=== PATIENT | male | born 1970 | race Caucasian/White ===

== ENCOUNTER → 2018-08-28 07:09 | Outpatient (CLI) | payer OTHER, SELFPAY ==
--- NOTE | 2018-08-28 | DI.MRI.S_ITS ---
PROCEDURE: MR LUMBAR SPINE WO CON INDICATIONS: LEFT LEG RADICULOPATHY TECHNIQUE: Noncontrast sagittal T1 spin echo and T2 fast echo, sagittal STIR, axial T1 and T2 fast spin echo through the lumbar spine. In cases with scoliosis, additional coronal T2 fast spin echo may be performed. COMPARISON: [facility], CT, ABDOMEN/PELVIS WITH CONTRAST, 08/22/2016, 12:25. FINDINGS: Image quality: Diagnostic, with note made of motion artifact. Alignment and Curvature: There is normal bony alignment. Bone Marrow: Marrow is of normal overall signal. No acute vertebral body compression fractures. Spinal Cord: Conus medullaris terminates at the L1 level. Visualized cord demonstrates normal signal and size. Paraspinous Soft Tissues: No paravertebral masses. T12-L1: Normal appearance. L1-L2: Normal appearance. L2-L3: Normal appearance. L3-L4: Normal appearance. L4-L5: Mild loss of disc height is seen. Loss of disc signal is seen. Moderate disc bulge is seen, with a central disc extrusion. There is mild superior migration of the disc material seen. There is an associated annular tear present. There is moderate central canal narrowing seen, with mass effect upon the regional nerve roots, including the transiting L5 nerve roots on both sides, left worse than right. Minimal to mild facet hypertrophy is seen. There is mild right-sided and moderate left-sided neural foraminal narrowing seen. L5-S1: The disc height is well-preserved. Loss of disc signal is seen at this level. Mild to moderate disc bulge is seen, with a mild central disc protrusion. An annular fissure is present posteriorly, as on series 2 image 10. Mild facet joint hypertrophy is seen. At least moderate bilateral neural foraminal narrowing is seen. There is a degree of impingement seen upon the exiting nerve roots. Mild central canal narrowing is seen. IMPRESSION: Focal lower lumbar spine degenerative changes are seen, including a central disc extrusion at the L4-L5 level. Annular fissures are seen at L4-L5 and L5-S1. Dictated by: Pelon Lira M.D. on 08/28/2018 at 8:58 Approved by: Pelon Lira M.D. on 08/28/2018 at 9:03
== END ==
PROVIDERS: Visit Provider Family Medicine
DX: M51.16 Intervertebral disc disorders with radiculopathy, lumbar region (principal); M51.17 Intervertebral disc disorders with radiculopathy, lumbosacral region; M48.061 Spinal stenosis, lumbar region without neurogenic claudication; M48.07 Spinal stenosis, lumbosacral region
CPT/HCPCS: 72148

== ENCOUNTER 2019-01-28 09:31 | Emergency (ER) | payer OTHER, SELFPAY ==
[2019-01-28 09:31] VITALS: BP 127/88; PULSE 90; RESP 14; TEMP 36.7; O2SAT 98
--- NOTE | 2019-01-28 10:06 | ED.ABDPAIN ---
HPI - Abdominal Pain General Chief Complaint: Abdominal Pain Stated Complaint: ABD PAIN Time Seen by Provider: 01/28/19 09:48 Source: patient Mode of arrival: ambulatory Limitations: no limitations History of Present Illness HPI narrative: Patient is a 48-year-old male who presents with left lower quadrant pain. It started yesterday afternoon it feels like previous episodes of diverticulitis. His hurts every time he moves. Decreased appetite no nausea vomiting. No bloody stools. MD complaint: abdominal pain Onset (ago): day(s) (1) Pain Consistency: constant Location: LLQ Severity: moderate Quality: stabbing Radiation: none Migration to: no migration Exacerbating factors: movement Related Data Home Medications Medication Instructions Recorded Confirmed pantoprazole 40 mg PO QDAY #30 tab 08/22/16 01/28/19 Previous Rx's Medication Instructions Recorded hydrocodone-acetaminophen 1 tab PO Q6H PRN #10 tab 01/28/19 levofloxacin 750 mg PO DAILY #10 tab 01/28/19 metronidazole 500 mg PO TID #30 tab 01/28/19 Allergies Allergy/AdvReac Type Severity Reaction Status Date / Time No Known Drug Allergies Allergy Verified 01/28/19 09:40 Review of Systems Review of Systems GENERAL: Denies chills, fatigue, malaise, fever, sweats, travel HEENT: Denies sinus pain, ear pain, sore throat, difficulty swallowing, neck pain RESPIRATORY: Denies dyspnea, cough, wheezing, hemoptysis, sputum. CARDIOVASCULAR: Denies chest pain, palpitations, orthopnea, edema GASTROINTESTINAL: See HPI : Denies dysuria, frequency, incontinence, hematuria, urinary retention, flank pain. MUSCULOSKELETAL: Denies weakness, joint pain, or bony pain SKIN: No rash, no erythema, no pruritus NEUROLOGIC: Denies weakness, dizziness, headache, numbness, change in speech, confusion PSYCHIATRIC: No concerning psychosocial issues. 12 point review of systems is negative except for those stated above and HPI PFSH Medical History Diverticulitis (Acute) GERD (gastroesophageal reflux disease) (Acute) Surgical History Status post appendectomy (Acute) Social History Smoking Status: Never smoker Social History Smoking Status: Never smoker Exam Initial Vital Signs Initial Vital Signs: Vital Signs Temperature 98.1 F 01/28/19 09:31 Pulse Rate 90 01/28/19 09:31 Respiratory Rate 14 01/28/19 09:31 Blood Pressure 127/88 01/28/19 09:31 Pulse Oximetry 98 01/28/19 09:31 GENERAL: Well-appearing, well-nourished and in no acute distress. HEENT: Head atraumatic,EOMI, pupils reactive, CARDIOVASCULAR: Regular rate and rhythm without murmurs, rubs or gallops. RESPIRATORY: Breath sounds equal bilaterally, no wheezes rales or rhonchi. ABDOMEN: Soft, the guarding, left lower quadrant pain EXTREMITIES: Normal range of motion, no clubbing or edema. Neurovascularly intact NEUROLOGICAL: Alert and oriented x4.Normal gait and speech. SKIN: Warm, dry, no laceration, no petechiae, no rashes or lesions. Course Orders Ordered: ED Orders 01/28/19 10:10 CT abdomen pelvis w con Stat Discontinued Medications Sodium Chloride (Normal Saline 0.9%) 1,000 mls @ 1,000 mls/hr IV CONT TRACEE Last Infusion: 01/28/19 12:03 Dose: 0 mls/hr Admin: 01/28/19 10:24 Dose: 1,000 mls/hr Morphine Sulfate (Morphine) 4 mg IV NOW ONE Stop: 01/28/19 10:34 Last Admin: 01/28/19 10:34 Dose: 4 mg Ondansetron HCl (Zofran) 4 mg IV NOW ONE Stop: 01/28/19 10:34 Last Admin: 01/28/19 10:35 Dose: 4 mg Consultations Consultation #1: Dr. sanchez in regards to ileus and diverticulitis. Patient tolerating oral fluids may be safely discharged home. Time: 11:19 Vital Signs - 8 hr 01/28/19 11:55 Pulse Rate 72 Respiratory Rate 18 Blood Pressure [Right Arm] 118/72 Pulse Oximetry 98 MDM - Abdominal Pain Lab Data Attestation: I reviewed the patient's lab results. Result diagrams: 01/28/19 Unknown 01/28/19 Unknown Lab Results 01/28/19 01/28/19 Range/Units Unknown Unknown WBC 13.9 H (4.5-11.0) X10^3/uL RBC 5.14 (4.5-5.9) X10^6/uL Hgb 15.7 (13.5-17.5) g/dL Hct 45.2 (41-53) % MCV 87.9 (80-100) fL MCH 30.6 (26-34) PG MCHC 34.8 (30-36) % RDW 13.3 (11.6-14.8) % Plt Count 282 (150-400) X10^3/uL Neut % (Auto) 82.9 H (50-75) % Lymph % (Auto) 6.9 L (25-40) % [place] % (Auto) 9.3 (3-14) % Eos % (Auto) 0.6 L (2-4) % Baso % (Auto) 0.3 (0-2) % Neut # (Auto) 28600 H (6483-3490) /uL Lymph # (Auto) 1000 L (4045-4860) /uL [place] # (Auto) 1300 H (0-900) /uL Eos # (Auto) 100 (0-450) /uL Baso # (Auto) 0 (0-100) /uL Sodium 138 (137-145) mmol/L Potassium 3.9 (3.4-5.1) mmol/L Chloride 103 (98-107) mmol/L Carbon Dioxide 23 (22-32) mmol/L BUN 13 (9-20) mg/dL Creatinine 0.90 (0.66-1.25) mg/dL Estimated GFR > 60.0 (>60) mL/min BUN/Creatinine Ratio 14.4 (6-22) Glucose 132 H (70-100) mg/dL Calcium 9.3 (8.4-10.2) mg/dL Total Bilirubin 0.9 (0.2-1.3) mg/dL AST 23 (17-59) IU/L ALT 28 (21-72) IU/L Alkaline Phosphatase 83 (38-126) U/L Total Protein 8.1 (6.3-8.2) g/dL Albumin 4.6 (3.5-5.0) g/dL Globulin 3.5 (1.7-4.1) g/dL Albumin/Globulin Ratio 1.3 (1.0-2.8) Lipase 26 (23-300) U/L Point of care testing: Urine Dip Bedside Urine Glucose Negative Bedside Urine Bilirubin - Negative Bedside Urine Ketone - Negative Urine Specific [place] 1.005 Bedside Urine Occult Blood - Negative Bedside Urine pH 6.0 Bedside Urine Protein +/- 15 Bedside Urine Urobilinogen +/- 1mg Bedside Urine Nitrite - Negative Bedside Urine Leukocytes - Negative Esterase Imaging Data CT scan - abdomen: Radiologist's impression: PROCEDURE: CT ABDOMEN PELVIS W CON INDICATIONS: Left lower quadrant abdominal pain TECHNIQUE: After the administration of intravenous contrast, 5 mm thick sections acquired from the diaphragm to the symphysis. 5 mm coronal and sagittal reformats were acquired. For radiation dose reduction, the following was used: automated exposure control, adjustment of mA and/or kV according to patient size. COMPARISON: [facility], CT, ABDOMEN/PELVIS WITH CONTRAST, 08/22/2016, 12:25. FINDINGS: Image quality: Excellent. ABDOMEN: Lung bases: Lung bases are clear. Heart size is normal. Solid organs: Liver is normal in size and enhancement. Gallbladder appears normal. Biliary system is non dilated. Pancreas enhances normally. Spleen is normal in size and enhancement. No adrenal nodules. Kidneys demonstrate normal size and enhancement, without hydronephrosis. Peritoneum and bowel: Small bowel loops demonstrate normal wall thickness and caliber superiorly of the middle and lower thirds of the abdomen/pelvis there is prominence of small bowel fluid content, and just above the sigmoid colon there is small bowel mural thickening focally over a short segment of the small bowel at the midline, centered on series 2 image 63.. No free fluid or air. Nodes and vessels: No retroperitoneal or mesenteric adenopathy by size criteria. Aorta and inferior vena cava are normal in size. Miscellaneous: No ventral hernias. PELVIS: Genitourinary: Bladder wall thickness is normal. Miscellaneous: No inguinal hernias or adenopathy. At the sigmoid colon extensive diverticulosis is present, and as was previously the case during CT scanning 08/22/16 there is acute diverticulitis superimposed. This is most prominent at the middle third of the pelvis, across which a portion of the small bowel that is abnormally fluid-filled crosses, and exactly in this area at the midline is an abnormal mural thickening over a short segment of small bowel. No pneumatosis is associated, and this likely is reactive in origin. A peridiverticular abscess is not seen. Bones: No suspicious bony lesions. No vertebral body compression fractures. IMPRESSION: 1. Acute moderately severe diverticulitis involving the sigmoid colon in an area of relatively prominent sigmoid diverticulosis. No peridiverticular abscess is present and is active acute inflammatory process is in the same area as prior acute diverticulitis was present during prior CT scanning in August of 2016. 2. There is reactive ileus involving small bowel loops over the pelvis and lower two thirds of the abdomen, including a short segment of small bowel that crosses immediately over the area of maximal diverticulitis with small bowel mural thickening as a result. Reactive ileus and reactive inflammation appear present as cause of these findings. No free air seen. Dictated by: Lawson Morrow M.D. on 01/28/2019 at 9:49 MDM Narrative Medical decision making narrative: Patient is tolerating oral fluids. He did require some morphine to help control his pain. He overall does not appear septic. Ileus is likely reactive from inflammation from diverticulitis. I suspect that treating diverticulitis will help with the ileus. I recommended clear liquid diet patient. At this time discussed warning signs with both patient and . Discharge Plan Departure Patient Disposition: Home Clinical Impression: Ileus Diverticulitis Qualifiers: Diverticulitis site: large intestine Diverticulitis bleeding: without bleeding Diverticulitis complication: unspecified complication status Qualified Code(s): K57.32 - Diverticulitis of large intestine without perforation or abscess without bleeding Discharge Date/Time: 01/28/19 12:04 Interventions: ED Discharge Assessment Last Done: 01/28/19 12:03 Instructions: Diverticulitis, Ileus Activity Restrictions/Additional Instructions: *You have been diagnosed with diverticulitis with ileus *What to do: Recommend clear liquid diet if tolerated may advance. May require GI consultation if having recurrent diverticulitis, please speak with your PCP about *Continue to take medications as directed --> SENT TO [facility] Levaquin 750 mg once a day Flagyl 500 mg 3 times a day [place] 1 tablet every 4 hr or 2 tablets every 6 hr if needed for severe pain *Follow up with your primary care provider in 2-3 days *Return to ER if you should have increasing abdominal pain not tolerating diet or any new, worsening or concerning symptoms CONTROLLED SUBSTANCE DISCHARGE (Narcotoic/benzodiazepine/Flexeril/Phenergan) 1. You have been prescribed narcotic medications, it does have acetaminophen/Tylenol/paracetamol in it so do not take extra Tylenol or Tylenol containing products 2. Please understand that we cannot provide further refills of narcotics, benzodiazepines or controlled substances through the ED and her pain management will need to be through your provider. 3. While on these medications you cannot drive or operate heavy machinery. 4. You cannot sign legal documents or perform any duties such as this. 5. As long as you're taking opiate pain medications he should also be taking a stool softener such as Colace, Dulcolax, MiraLAX or prune juice, to help avoid constipation. Prescriptions: New hydrocodone-acetaminophen 5-325 mg tablet 1 tab PO Q6H PRN (Reason: pain) Qty: 10 RF: 0 metronidazole 500 mg tablet 500 mg PO TID Qty: 30 RF: 0 levofloxacin 750 mg tablet 750 mg PO DAILY Qty: 10 RF: 0 No Action pantoprazole 40 MG tablet,delayed release (DR/EC) 40 mg PO QDAY Qty: 30 RF: 0 Referrals: Christiano Hardin MD [Primary Care Provider] - Stand Alone Forms: Work Release Note
--- NOTE | 2019-01-28 10:10 | DI.CT.S_ITS ---
PROCEDURE: CT ABDOMEN PELVIS W CON INDICATIONS: Left lower quadrant abdominal pain TECHNIQUE: After the administration of intravenous contrast, 5 mm thick sections acquired from the diaphragm to the symphysis. 5 mm coronal and sagittal reformats were acquired. For radiation dose reduction, the following was used: automated exposure control, adjustment of mA and/or kV according to patient size. COMPARISON: [facility], CT, ABDOMEN/PELVIS WITH CONTRAST, 08/22/2016, 12:25. FINDINGS: Image quality: Excellent. ABDOMEN: Lung bases: Lung bases are clear. Heart size is normal. Solid organs: Liver is normal in size and enhancement. Gallbladder appears normal. Biliary system is non dilated. Pancreas enhances normally. Spleen is normal in size and enhancement. No adrenal nodules. Kidneys demonstrate normal size and enhancement, without hydronephrosis. Peritoneum and bowel: Small bowel loops demonstrate normal wall thickness and caliber superiorly of the middle and lower thirds of the abdomen/pelvis there is prominence of small bowel fluid content, and just above the sigmoid colon there is small bowel mural thickening focally over a short segment of the small bowel at the midline, centered on series 2 image 63.. No free fluid or air. Nodes and vessels: No retroperitoneal or mesenteric adenopathy by size criteria. Aorta and inferior vena cava are normal in size. Miscellaneous: No ventral hernias. PELVIS: Genitourinary: Bladder wall thickness is normal. Miscellaneous: No inguinal hernias or adenopathy. At the sigmoid colon extensive diverticulosis is present, and as was previously the case during CT scanning 08/22/16 there is acute diverticulitis superimposed. This is most prominent at the middle third of the pelvis, across which a portion of the small bowel that is abnormally fluid-filled crosses, and exactly in this area at the midline is an abnormal mural thickening over a short segment of small bowel. No pneumatosis is associated, and this likely is reactive in origin. A peridiverticular abscess is not seen. Bones: No suspicious bony lesions. No vertebral body compression fractures. IMPRESSION: 1. Acute moderately severe diverticulitis involving the sigmoid colon in an area of relatively prominent sigmoid diverticulosis. No peridiverticular abscess is present and is active acute inflammatory process is in the same area as prior acute diverticulitis was present during prior CT scanning in August of 2016. 2. There is reactive ileus involving small bowel loops over the pelvis and lower two thirds of the abdomen, including a short segment of small bowel that crosses immediately over the area of maximal diverticulitis with small bowel mural thickening as a result. Reactive ileus and reactive inflammation appear present as cause of these findings. No free air seen. Dictated by: Lawson Morrow M.D. on 01/28/2019 at 9:49 Approved by: Lawson Morrow M.D. on 01/28/2019 at 9:54
[2019-01-28 10:19] LABS: Add Manual Diff / Slide Review NO; Basophils Absolute Auto 0 /uL (0-100); Basophils Percent Auto 0.3 % (0-2); Eosinophils Absolute Auto 100 /uL (0-450); Eosinophils Percent Auto 0.6 % (2-4); Hematocrit 45.2 % (41-53); Hemoglobin 15.7 g/dL (13.5-17.5); Lymphocytes Absolute Auto 1000 /uL (1100-4500); Lymphocytes Percent Auto 6.9 % (25-40); Mean Corpuscular HGB Conc 34.8 % (30-36); Mean Corpuscular Hemoglobin 30.6 PG (26-34); Mean Corpuscular Volume 87.9 fL (80-100); Monocytes Absolute Auto 1300 /uL (0-900); Monocytes Percent Auto 9.3 % (3-14); Neutrophils Absolute Auto 11500 /uL (1500-7000); Neutrophils Percent Auto 82.9 % (50-75); Platelet Count 282 X10^3/uL (150-400); Red Blood Cell Count 5.14 X10^6/uL (4.5-5.9); Red Cell Distribution Width 13.3 % (11.6-14.8); White Blood Cell Count 13.9 X10^3/uL (4.5-11.0)
[2019-01-28] MEDS: SODIUM CHLORIDE 0.9% 1,000 ML 1000 ML IV (10:24)
[2019-01-28 10:25] LABS: Alanine Aminotransferase 28 IU/L (21-72); Albumin 4.6 g/dL (3.5-5.0); Albumin Globulin Ratio 1.3 (1.0-2.8); Alkaline Phosphatase 83 U/L (38-126); Aspartate Aminotransferase 23 IU/L (17-59); BUN Creatinine Ratio 14.4 (6-22); Bilirubin Total 0.9 mg/dL (0.2-1.3); Blood Urea Nitrogen 13 mg/dL (9-20); Calcium 9.3 mg/dL (8.4-10.2); Carbon Dioxide 23 mmol/L (22-32); Chloride 103 mmol/L (98-107); Estimated Glomerular Filt Rate > 60.0 mL/min (>60); Globulin 3.5 g/dL (1.7-4.1); Glucose 132 mg/dL (70-100); HEMOLYSIS 15 (0-50); Lipase 26 U/L (23-300); Potassium 3.9 mmol/L (3.4-5.1); Sodium 138 mmol/L (137-145); Total Protein 8.1 g/dL (6.3-8.2)
[2019-01-28 10:29] VITALS: BP 124/82; PULSE 86; RESP 18; O2SAT 98
[2019-01-28] MEDS: MORPHINE 4 MG/ML INJ IV (10:34)
[2019-01-28] MEDS: ONDANSETRON 4 MG/2 ML INJ IV (10:35)
[2019-01-28 11:55] VITALS: BP 118/72; PULSE 72; RESP 18; O2SAT 98
== END 2019-01-28 12:04 | disposition home or self-care (01) ==
PROVIDERS: Emergency Provider Emergency Medicine; PCP Family Medicine
DX: K56.7 Ileus, unspecified (principal); K57.32 Diverticulitis of large intestine without perforation or abscess without bleeding
CPT/HCPCS: 36591; 74177; 80053; 81003; 83690; 85025; 96361; 96374; 96375; 99283; 99285; J2270; J2405; Q9967

== ENCOUNTER → 2020-07-26 15:42 | Outpatient (CLI) | payer OTHER, SELFPAY ==
[2020-07-31 16:27] LABS: COVID19 Sendout NOT DETECTED
== END ==
PROVIDERS: PCP Family Medicine; Visit Provider Physician Assistant
DX: J34.89 Other specified disorders of nose and nasal sinuses (principal); R50.9 Fever, unspecified
CPT/HCPCS: 87635

== ENCOUNTER → 2021-08-18 10:10 | Outpatient (CLI) | payer OTHER, SELFPAY ==
[2021-08-18 13:13] LABS: COVID19 -Nasal RAPID Negative (Negative)
== END ==
PROVIDERS: Visit Provider Physician Assistant
DX: Z20.822 Contact with and (suspected) exposure to COVID-19 (principal); Z01.812 Encounter for preprocedural laboratory examination
CPT/HCPCS: 87635

== ENCOUNTER 2021-08-20 12:36 | Day surgery (SDC) | payer OTHER, SELFPAY ==
[2021-08-20] VITALS (7 sets, daily range): BP systolic 120–140; BP diastolic 68–87; PULSE 63–73; RESP 8–16; TEMP 36.6–37.2; O2SAT 96–97; BMI 28.3
--- NOTE | 2021-08-20 12:06 | PM.PREOP ---
Pre-operative Note COVID-19 COVID-19 status: Negative Result date/Date tested (Pos, Neg/Pending): 08/18/21 Interval Note History & Physical reviewed/Exam performed by Physician: Yes Changes to H&P: No ASA Class (for procedural sedation): II
--- NOTE | 2021-08-20 12:08 | PM.OP.EC ---
Operative Date/Time/Diagnoses Date of procedure: 08/20/21 Procedure Notes SCOAP/Timeout: 1:39 p.m. Procedure in detail: ENDOSCOPIST: Raquel Petersen MD Sedation RN: Abilio Sousa RN Sedation start time: 1:40 p.m. Sedation end time: 1:59 p.m. PROCEDURE: Sigmoidoscopy INDICATIONS: 1. Screening for colon cancer MEDICATION: Levsin 0.125 mg sublingual, incremental doses of Versed and fentanyl until appropriate level sedation achieved. ASA CLASS: 2 PROCEDURE TIME: 14 minutes COMPLICATIONS: None. EXTENT OF PROCEDURE: Cecum. QUALITY OF PREP: Good with portions of liquid stool. PROCEDURE: Prior to insertion of the colonoscope, a digital rectal examination was accomplished with circumferential palpation of the distal rectal mucosa without significant findings being noted. The high-definition colonoscope was passed into the rectum in the usual fashion and advanced to 40 cm without difficulty. At that point, quite a bit of resistance was met with forward advancement of the scope and despite position changes, and gentle pressure, the scope could not be advanced any further. Colonoscopy thus converted to a sigmoidoscopy. As the colonoscope was withdrawn, care was taken to expose and inspect the haustral folds and a few scattered diverticuli were seen, otherwise normal with no abnormalities. RECTUM: Normal. J maneuver was produced. There was no significant perianal disease. The J maneuver was broken. The remainder of the rectum was inspected and notable for promiment veins with no external hemorrhoid disease. The scope was withdrawn. IMPRESSION: 1. Normal sigmoidoscopy PLAN: 1. Plan for referral to GI or CT colonography per patient preference. The possibility of a missed lesion including a malignancy has been discussed with the patient previously. Potential alarm symptoms have been discussed and should be reported immediately.
[2021-08-20] MEDS: LACTATED RINGERS 1,000 ML 200 ML IV (13:07)
[2021-08-20] MEDS: fentaNYL 250 MCG/5 ML INJ IV (14:03)
[2021-08-20] MEDS: MIDAZOLAM 5 MG/5 ML VIAL IV (14:04)
--- NOTE | 2021-08-20 16:16 | SUR.PHASEII ---
Patient ready to go home at 1500 but had to wait until got home to leave. Took nap in bed until 1615 when picked him up
== END 2021-08-20 16:15 | disposition home or self-care (01) ==
PROVIDERS: PCP Student in an Organized Health Care Education/Training Program; Referring Provider Student in an Organized Health Care Education/Training Program; Visit Provider Student in an Organized Health Care Education/Training Program
PROC: 0DJD8ZZ Inspection of Lower Intestinal Tract, Via Natural or Artificial Opening Endoscopic (ICD-10-PCS; CPT 45378; principal; 2021-08-20 13:45)
DX: Z12.11 Encounter for screening for malignant neoplasm of colon (principal)
CPT/HCPCS: 45330; J2250; J3010

== ENCOUNTER → 2022-07-04 09:34 | Outpatient (CLI) | payer BC, SELFPAY ==
[2022-07-04 13:18] LABS: COVID19 -Nasal RAPID Negative (Negative)
== END ==
PROVIDERS: PCP Family Medicine; Visit Provider Surgery
DX: Z20.822 Contact with and (suspected) exposure to COVID-19 (principal); Z01.812 Encounter for preprocedural laboratory examination
CPT/HCPCS: 87635; C9803

== ENCOUNTER 2022-07-05 11:15 | Day surgery (SDC) | payer BC, SELFPAY ==
--- NOTE | 2022-07-05 | PATH_ITS ---
[facility] Accession Number: [id number] . 01 Material submitted: . esophagus, E-G Junction - GE JUNCTION . 01 Diagnosis: Gastroesophageal Junction, Biopsy: Proximal gastric-type mucosa with mild chronic inflammation. Negative for specialized intestinal metaplasia on AB/PAS stain. Negative for dysplasia or malignancy. MRV 07/08/2022 1321 Local . 01 Electronically signed: . Uday Romeo MD, PhD, Pathologist NPI- [id number] . 01 Gross description: . GE JUNCTION: Received in formalin is 1 fragment(s) of roberson, soft tissue measuring 0.3 x 0.2 x 0.2 cm submitted entirely in 1 cassette(s) /BRIAN 07/06/2022 1907 Local . 01 Microscopic: . An AB/PAS stain is performed to evaluate for specialized intestinal metaplasia, and is negative for goblet cells. A control stain shows appropriate reactivity. . 01 Pathologist provided ICD-10: R13.10, K20.80 . 01 CPT . 703110, [id number] Specimen Comment: A courtesy copy of this report has been sent to [phone] Performed at: 01 [facility] [address] [place] [address], [place], [place] [id number] MD Jeremiah Kaur MD Phone: [phone]
[2022-07-05 11:25] VITALS: BP 130/79; PULSE 53; RESP 20; TEMP 36.4; O2SAT 98; BMI 28.3
[2022-07-05] MEDS: LACTATED RINGERS 1,000 ML 200 ML IV (11:35)
--- NOTE | 2022-07-05 12:19 | PM.PREOP ---
Pre-operative Note Interval Note History & Physical reviewed/Exam performed by Physician: Yes Changes to H&P: No
[2022-07-05] MEDS: LIDOCAINE 4% SOLN 50 ML 20 ML TOP (12:23)
[2022-07-05] MEDS: MIDAZOLAM 5 MG/5 ML VIAL 8 MG IV (12:24)
[2022-07-05] MEDS: fentaNYL 100 MCG/2 ML INJ IV (12:24)
--- NOTE | 2022-07-05 12:42 | PM.OP.EGD ---
Operative Date/Time/Diagnoses Date of procedure: 07/05/22 Time of procedure: 12:42 Pre-op diagnosis: Esophageal dysphagia. Post-op diagnosis: same Procedure & Clinicians Study performed: Esophagoduodenoscopy Esophageal dilation Same procedure as scheduled: Yes Indications: Esophageal dysphagia. Prior esophageal stricture Surgeon: Johnny Self Procedure Notes Procedure in detail: Patient placed in left lateral decubitus position. Time out was performed. Procedural sedation was administered with Versed and Fentanyl. A bite block was placed. the scope was inserted into the mouth and advanced through the esophagus and into the stomach. The scope passed into the stomach without difficulty however there was scarring and stricture at the GE junction which barely accommodated the diameter of the scope. The pylorus was intubated and the duodenum was normal to the 2nd portion. The scope was retroflexed within the stomach and there was a small hiatal hernia. No ulcers, or gastritis. The scope was withdrawn into the esophagus the Z line was seen at 40 cm from the incisions. Biopsy of the esophageal stricture was performed with forceps. The esophageal stricture was then dilated using the pneumatic balloon dilator to a diameter 20 mm. Stomach was desufflated and scope removed. Patient tolerated procedure well. Specimen(s): other (GE junction) Complications: none Impression: Esophageal stricture Post-procedure Recommendations: Reflux diet Plan for aftercare: Continue pantoprazole Disposition: same day surgery
[2022-07-05 12:47] VITALS: BP 134/83; PULSE 53; RESP 19; TEMP 36.3; O2SAT 96
[2022-07-05 12:52] VITALS: BP 122/83; PULSE 55; RESP 16; O2SAT 97
[2022-07-05 12:57] VITALS: BP 126/84; PULSE 62; RESP 16; O2SAT 97
[2022-07-05 13:09] VITALS: BP 121/83; PULSE 62; RESP 15; O2SAT 98
== END 2022-07-05 13:15 | disposition home or self-care (01) ==
PROVIDERS: PCP Family Medicine; Referring Provider Surgery; Visit Provider Surgery
PROC: 0DJ08ZZ Inspection of Upper Intestinal Tract, Via Natural or Artificial Opening Endoscopic (ICD-10-PCS; CPT 43235; principal; 2022-07-05 12:15)
DX: R13.19 Other dysphagia (principal); K22.2 Esophageal obstruction; K44.9 Diaphragmatic hernia without obstruction or gangrene; K29.50 Unspecified chronic gastritis without bleeding
CPT/HCPCS: 43249; 43239; J2250; J3010

== ENCOUNTER → 2022-11-01 09:17 | Outpatient (CLI) | payer BC, SELFPAY ==
[2022-11-01 11:34] LABS: COVID19 -Nasal RAPID Negative (Negative)
== END ==
PROVIDERS: PCP Family Medicine; Visit Provider Surgery
DX: Z01.812 Encounter for preprocedural laboratory examination (principal); Z20.822 Contact with and (suspected) exposure to COVID-19
CPT/HCPCS: 87635; C9803

== ENCOUNTER 2022-11-02 10:58 | Day surgery (SDC) | payer BC, SELFPAY ==
[2022-11-02] VITALS (7 sets, daily range): BP systolic 121–133; BP diastolic 72–88; PULSE 54–85; RESP 14–20; TEMP 36.2–36.6; O2SAT 95–100; BMI 27.6
[2022-11-02] MEDS: LACTATED RINGERS 1,000 ML 42 ML IV (11:31)
--- NOTE | 2022-11-02 11:47 | PM.HP.1 ---
History of Present Illness History of Present Illness [place] [facility] [place]: [place] screening Patient History Medical History (Updated 06/17/22 @ 14:08 by Johnny Self MD) Broken arm Diverticulitis Dysphagia GERD (gastroesophageal reflux disease) Surgical History Status post appendectomy Family & Social History Family History Father Heart disease Social History: household members spouse,children Tobacco & Substance use: Smoking Status Never smoker alcohol intake current alcohol intake frequency 0-2 drinks per day Substance Use Type does not use Meds Home Medications and Allergies Home Medications Medication Instructions Recorded Confirmed Type pantoprazole 40 mg tablet,delayed 40 mg PO QDAY #30 tabs 08/22/16 11/02/22 History release Allergies Allergy/AdvReac Type Severity Reaction Status Date / Time No Known Drug Allergies Allergy Verified 11/02/22 11:13 Review of Systems Review of Systems Narrative: Negative Exam Vital Signs (past 8 hours): - 11/02/22 11:18 Temperature 97.2 F L Pulse Rate 85 Respiratory Rate 20 Blood Pressure 129/77 Pulse Oximetry 95 Oxygen Delivery Method Room Air Oxygen Delivery Method Room Air Narrative Exam Narrative: Awake alert and oriented x3, pupils equal round reactive to light, oropharynx clear, heart regular rate and rhythm, lungs clear to auscultation bilaterally, abdomen nontender and nondistended, extremities without edema, no gross neurologic deficits noted Assessment & Plan Assessment & Plan narrative: Colon cancer screening for colonoscopy today Time Spent With Patient Critical Care time: I spent a total of [] minutes of critical care time on this patient's care today; this time is exclusive of procedural time.
--- NOTE | 2022-11-02 12:33 | PM.OP.COLON ---
Operative Date/Time/Diagnoses Date of procedure: 11/02/22 Procedure & Clinicians Study performed: Aborted colonoscopy Indications: History of diverticulitis. Failed attempt at colonoscopy in 2021. Procedure Notes Procedure in detail: Prior to the procedure, history and physical was performed, and patient medications and allergies were reviewed. Preprocedure nursing history and assessment was reviewed. Patient identification and proposed procedure were verified by the physician and nurse in the procedure room. The physical status of the patient was reassessed after the procedure. After informed consent was obtained including risks, benefits, and alternatives, the scope was passed under direct vision. Throughout the procedure, the patient's blood pressure, pulse, and oxygen saturations were monitored continuously. The colonoscope was introduced through the anus and advanced to sigmoid colon. This was removed and an upper endoscope was introduced through the anus and advanced to the transverse colon. The procedure was technically difficult. The patient tolerated the procedure well. Bowel prep was deemed adequate to detect polyps greater than 5 mm. CAPO and perianal examinations were unremarkable. Retroflexion in the rectum was unrevealing Mucosal congestion and erythema along with numerous medium-sized diverticula were encountered in the sigmoid colon. Due to significant looping and tortuosity, the adult colonoscope could not be advanced beyond the sigmoid colon. The upper endoscope was able to traverse the sigmoid colon and was advanced to the transverse colon but could not be advanced beyond the transverse colon into the cecum due to significant looping, despite use of the stiffener, manual pressure, and patient repositioning. Impression: Sigmoid colon diverticulosis Erythema and congestion noted in the sigmoid colon. Significant tortuosity and looping in this region. Cannot rule out underlying sigmoid colon diverticulitis. Aborted colonoscopy. The rectum, left colon, and transverse colon were evaluated. Ascending colon cecum not visualized. No specimens taken Complications: other (EBL minimal. No complications) Post-procedure Plan for aftercare: Order CT colonography for colon cancer screening purposes. Resume home medications High fiber diet Patient has a contact number available for emergencies. The signs and symptoms of potential delayed complications were discussed with the patient. Return to normal activities tomorrow. Written discharge instructions were provided to the patient. Discharge home with escort
== END 2022-11-02 13:41 | disposition home or self-care (01) ==
PROVIDERS: PCP Family Medicine; Referring Provider Internal Medicine; Visit Provider Internal Medicine
PROC: 0DJD8ZZ Inspection of Lower Intestinal Tract, Via Natural or Artificial Opening Endoscopic (ICD-10-PCS; CPT 45378; principal; 2022-11-02 12:00)
DX: Z87.19 Personal history of other diseases of the digestive system (principal); K57.30 Diverticulosis of large intestine without perforation or abscess without bleeding; Z53.09 Procedure and treatment not carried out because of other contraindication
CPT/HCPCS: 45378; J2704

== ENCOUNTER → 2023-01-25 15:57 | Outpatient (CLI) | payer BC, SELFPAY | PROVIDERS: PCP Family Medicine; Visit Provider Nurse Practitioner Family | DX: R30.0 Dysuria (principal) | CPT/HCPCS: 87077; 87086; 87186 ==

== ENCOUNTER 2023-02-08 13:37 | Emergency (ER) | payer BC, SELFPAY ==
[2023-02-08 13:58] VITALS: BP 127/80; PULSE 75; RESP 18; TEMP 36.7; O2SAT 97; BMI 27.0
[2023-02-08 15:06] LABS: Appearance Urine UA SL CLOUDY; Bilirubin Urine UA NEGATIVE (NEGATIVE); Color Urine UA YELLOW; Glucose Urine UA NEGATIVE (Negative); Ketones Urine UA NEGATIVE (NEGATIVE); Leukocyte Esterase Urine UA 1+ (NEGATIVE); Nitrite Urine UA NEGATIVE (Negative); Occult Blood Urine UA 2+ (Negative); Protein Urine UA 1+ (Negative); Urobilinogen Urine UA 0.2 E.U./dL (0.2)
[2023-02-08 15:26] LABS: Bacteria Urine Few (2-10); Culture Indicated Urine Specimen Cultured; RBC Urine 10-30/HPF (0-5/HPF); Squamous Epithelial Cell Urine None Seen (0-5/HPF); WBC Urine 10-30/HPF (0-5/HPF)
[2023-02-08 15:54] LABS: Add Manual Diff / Slide Review NO; Basophils Absolute Auto 100 /uL (0-100); Basophils Percent Auto 1.1 % (0-2); Eosinophils Absolute Auto 300 /uL (0-450); Eosinophils Percent Auto 2.6 % (2-4); Hematocrit 41.3 % (41-53); Lymphocytes Absolute Auto 1900 /uL (1100-4500); Lymphocytes Percent Auto 18.5 % (25-40); Mean Corpuscular Hemoglobin 30.3 PG (26-34); Mean Corpuscular Volume 89.1 fL (80-100); Monocytes Absolute Auto 700 /uL (0-900); Monocytes Percent Auto 6.6 % (3-14); Neutrophils Absolute Auto 7400 /uL (1500-7000); Neutrophils Percent Auto 71.2 % (50-75); Platelet Count 376 X10^3/uL (150-400); Red Blood Cell Count 4.64 X10^6/uL (4.5-5.9); Red Cell Distribution Width 14.3 % (11.6-14.8); White Blood Cell Count 10.4 X10^3/uL (4.5-11.0)
[2023-02-08 16:08] LABS: BUN Creatinine Ratio 12.7 (6-22); Blood Urea Nitrogen 16 mg/dL (9-20); Calcium 9.1 mg/dL (8.4-10.2); Carbon Dioxide 27 mmol/L (22-32); Chloride 102 mmol/L (98-107); Estimated Glomerular Filt Rate > 60 mL/min (>60); Glucose 90 mg/dL (70-100); HEMOLYSIS < 15 (0-50); Potassium 4.2 mmol/L (3.4-5.1); Sodium 138 mmol/L (137-145)
[2023-02-08] MEDS: KETOROLAC 30 MG/ML VIAL 15 MG IV (16:18)
[2023-02-08] MEDS: SODIUM CHLORIDE 0.9% 1,000 ML 1000 ML IV (16:27)
--- NOTE | 2023-02-08 16:45 | DI.CT.S_ITS ---
PROCEDURE: CT KIDNEY URETER BLADDER (KUB) INDICATIONS: eval ureterolithiasis, possible pyelo TECHNIQUE: Axial sections were acquired from the lung bases to the pubic symphysis. Coronal and sagittal reformats were performed. For radiation dose reduction, the following was used: automated exposure control, adjustment of mA and/or kV according to patient size. COMPARISON: None. FINDINGS: Image quality: Excellent. Lung bases: Unremarkable. Small hiatal hernia. Heart: No significant findings. URINARY: Right Kidney: No stones or hydronephrosis. Right Ureter: No hydroureter. Left Kidney: No stones or hydronephrosis. Left Ureter: No hydroureter. Bladder: No stones. There is bladder wall thickening involving the left lateral and superior bladder wall adjacent to a loop of sigmoid colon. There is air within the bladder lumen. The CT findings suggest colovesical fistula. ABDOMEN: Liver: Unremarkable. Gallbladder: Contracted. No radiopaque gallstones. Biliary ducts: Unremarkable. Pancreas: Unremarkable. Spleen: Unremarkable. Adrenal Glands: Unremarkable. Stomach and Bowel: Stomach, small bowel loops, and colon are normal in caliber. Diverticulosis. There is focal thickening and mild pericolonic stranding of the sigmoid colon suggesting diverticulitis. Peritoneum: No abnormal intraperitoneal fluid. No free air. Ventral Wall: No hernia. Abdominal Nodes: No enlarged retroperitoneal or mesenteric lymph nodes. Vessels: Aorta and inferior vena cava are normal in size. PELVIS: Pelvic Organs: Unremarkable. Pelvic Nodes: Unremarkable. Miscellaneous: No inguinal hernias are seen. Bones: Unremarkable. IMPRESSION: 1. Suspect colovesical fistula related to acute diverticulitis. There is bladder wall thickening along the left lateral superior bladder wall adjacent to a loop of inflamed sigmoid colon. Gas collection is noted within the bladder lumen. Please correlate with clinical history and urinalysis. The result was discussed with Dr. Chinchilla. Dictated by: Manish Torres M.D. on 02/08/2023 at 17:02 Approved by: Manish Torres M.D. on 02/08/2023 at 17:11
--- NOTE | 2023-02-08 16:49 | ED.MALEGU ---
HPI - Male Genitourinary <Whit Chinchilla PA-C - Last Filed: 02/08/23 20:35> General Chief complaint: Urogenital-Male Stated complaint: HAS UTI/SHARP PAINS IN BACK/SENT BY [facility] Time Seen by Provider: 02/08/23 15:34 Source: patient Mode of arrival: Ambulatory History of Present Illness HPI Narrative: 52-year-old male hx diverticulitis presents with concern for possible kidney stone. Patient states that about 10 days ago he developed fever and pain with urination and went to the walk-in clinic where he was prescribed Keflex. States he was actually ?quite sick for 2 or 3 days with fevers and chills and states that he was having urine that was strange colors and sometimes having foamy urine, or air coming out at times with peeing, but does state that ultimately his symptoms did improve with the antibiotics and he was feeling much better however he started worsening again yesterday and developed pain with urination again as well as some pains in his flank on the right side, he states that this has progressed now and he feels it is more on the left low down, these pains have been sharp and intermittent and quite uncomfortable. He did call the clinic back yesterday and they sent in a new prescription for him, Bactrim which she started taking but presented to the emergency department today with concern for possible kidney stone. He does endorse feeling somewhat fatigued the last few days. He states he has not had fevers, chills, reduced appetite, nausea, vomiting, diarrhea or any other symptoms in the past few days just the new pain and return of his dysuria. He denies any personal or family history of kidney stones. Related Data Home Medications Medication Instructions Recorded Confirmed pantoprazole 40 mg tablet,delayed 40 mg PO QDAY #30 tabs 08/22/16 01/25/23 release Previous Rx's Medication Instructions Recorded amoxicillin 500 mg-potassium 1 tab PO Q8H Diverticulitis, 02/08/23 clavulanate 125 mg tablet colovesicular fistula, E coli UTI (Augmentin) 12 days #36 tabs ciprofloxacin HCl 500 mg tablet 500 mg PO BID #14 tabs 02/11/23 (Cipro) Allergies Allergy/AdvReac Type Severity Reaction Status Date / Time No Known Drug Allergies Allergy Verified 02/08/23 14:06 Review of Systems <Whit Chinchilla PA-C - Last Filed: 02/08/23 20:35> Review of Systems Narrative: Unremarkable except as noted in the HPI Patient History <Whit Chinchilla PA-C - Last Filed: 02/08/23 20:35> Medical History Broken arm Diverticulitis Dysphagia GERD (gastroesophageal reflux disease) Surgical History Status post appendectomy Family History Father Heart disease Social History marital status: household members: spouse and children occupational status: employed Smoking Status: Never smoker alcohol intake: current Smoking Status: Never smoker alcohol intake frequency: 0-2 drinks per day Alcohol type: wine Substance Use Type: does not use Exam <Whit Chinchilla PA-C - Last Filed: 02/08/23 20:35> Narrative Exam Narrative: GENERAL: 52 year old patient appears stated age. Well-developed patient, in mild distress. HEAD: Atraumatic. Normocephalic. EYES: Pupils equal round and reactive. Extraocular motions intact. No scleral icterus. No injection or drainage. ENT: Nose without bleeding, purulent drainage. Throat without erythema, tonsillar hypertrophy or exudate. Airway patent. NECK: Trachea midline. Non tender CARDIOVASCULAR: Regular rate and rhythm without murmurs, gallops, or rubs. RESPIRATORY: Clear to auscultation. Breath sounds equal bilaterally. No wheezes, rales, or rhonchi. GASTROINTESTINAL: Abdomen soft, non-tender, nondistended, there is mild bilateral CVA, low flank tenderness more prominent on the right (exam after toradol given). EXTREMITIES: No edema or joint tenderness. BACK: Nontender without deformity or crepitance. NEURO: AOx3. SKIN: No rash or erythema of visible areas Initial Vital Signs Initial Vital Signs: Vital Signs Temperature 98.1 F 02/08/23 13:58 Pulse Rate 75 02/08/23 13:58 Respiratory Rate 18 02/08/23 13:58 Blood Pressure 127/80 02/08/23 13:58 Pulse Oximetry 97 02/08/23 13:58 Oxygen Delivery Method Room Air 02/08/23 13:58 <Noelle Robertson DO - Last Filed: 02/11/23 09:17> Initial Vital Signs Initial Vital Signs: Vital Signs Temperature 98.1 F 02/08/23 13:58 Pulse Rate 75 02/08/23 13:58 Respiratory Rate 18 02/08/23 13:58 Blood Pressure 127/80 02/08/23 13:58 Pulse Oximetry 97 02/08/23 13:58 Oxygen Delivery Method Room Air 02/08/23 13:58 <Geraldo Wise DO - Last Filed: 02/12/23 19:40> Initial Vital Signs Initial Vital Signs: Vital Signs Temperature 98.1 F 02/08/23 13:58 Pulse Rate 75 02/08/23 13:58 Respiratory Rate 18 02/08/23 13:58 Blood Pressure 127/80 02/08/23 13:58 Pulse Oximetry 97 02/08/23 13:58 Oxygen Delivery Method Room Air 02/08/23 13:58 Course <Whit Chinchilla PA-C - Last Filed: 02/08/23 20:35> Course Course Narrative: Spoke with radiologist who advises that the patient appears to have a diverticulitis and also a colovesical fistula. [address] Alvarado, on-call general surgeon, who agrees with the plan which was already discussed with Dr. Wise to place the patient on Augmentin given his E coli UTI and presence of diverticulitis. Because he is nontoxic reasonable to have him follow up in clinic, and of course return if he has any new or worsening symptoms. 1720 Did have a long discussion with the patient regarding the findings on CT scan and the plan for outpatient follow-up and return precautions, as well as the change of antibiotic. 1815 Orders Ordered: Discontinued Medications Amoxicillin/Clavulanate Potassium (Amoxicillin/Clav 875/125 Mg) 1 tab PO NOW ONE Stop: 02/08/23 18:46 Last Admin: 02/08/23 18:58 Dose: 1 tab Documented By: AT Sodium Chloride (Normal Saline 0.9%) 1,000 mls @ 1,000 mls/hr IV BOLUS ONE Stop: 02/08/23 17:17 Last Infusion: 02/08/23 17:35 Dose: 0 mls/hr Documented By: Admin: 02/08/23 16:27 Dose: 1,000 mls/hr Documented By: CHAITANYA Ceftriaxone Sodium 1,000 mg/ (Sodium Chloride) 100 mls @ 200 mls/hr IV NOW ONE Stop: 02/08/23 16:47 Last Infusion: 02/08/23 18:15 Dose: 0 mls/hr Documented By: Admin: 02/08/23 17:34 Dose: 200 mls/hr Documented By: AT Ketorolac Tromethamine (Ketorolac 30 Mg/Ml Vial) 15 mg IV NOW ONE Stop: 02/08/23 16:14 Last Admin: 02/08/23 16:18 Dose: 15 mg Documented By: CHAITANYA Vital Signs Vital signs: Vital Signs - 8 hr 02/08/23 13:58 02/08/23 17:17 02/08/23 17:17 Temperature 98.1 F Pulse Rate 75 59 L Respiratory Rate 18 Blood Pressure 127/80 125/71 Pulse Oximetry 97 98 Oxygen Delivery Method Room Air Room Air 02/08/23 17:30 02/08/23 17:30 02/08/23 18:00 Temperature Pulse Rate 58 L Respiratory Rate Blood Pressure 124/71 125/70 Pulse Oximetry 99 Oxygen Delivery Method 02/08/23 18:00 02/08/23 18:10 02/08/23 18:55 Temperature Pulse Rate 56 L 60 Respiratory Rate Blood Pressure 133/82 Pulse Oximetry 99 98 Oxygen Delivery Method Room Air Room Air <Noelle Robertson DO - Last Filed: 02/11/23 09:17> Orders Ordered: Discontinued Medications Amoxicillin/Clavulanate Potassium (Amoxicillin/Clav 875/125 Mg) 1 tab PO NOW ONE Stop: 02/08/23 18:46 Last Admin: 02/08/23 18:58 Dose: 1 tab Documented By: AT Sodium Chloride (Normal Saline 0.9%) 1,000 mls @ 1,000 mls/hr IV BOLUS ONE Stop: 02/08/23 17:17 Last Infusion: 02/08/23 17:35 Dose: 0 mls/hr Documented By: Admin: 02/08/23 16:27 Dose: 1,000 mls/hr Documented By: CHAITANYA Ceftriaxone Sodium 1,000 mg/ (Sodium Chloride) 100 mls @ 200 mls/hr IV NOW ONE Stop: 02/08/23 16:47 Last Infusion: 02/08/23 18:15 Dose: 0 mls/hr Documented By: Admin: 02/08/23 17:34 Dose: 200 mls/hr Documented By: AT Ketorolac Tromethamine (Ketorolac 30 Mg/Ml Vial) 15 mg IV NOW ONE Stop: 02/08/23 16:14 Last Admin: 02/08/23 16:18 Dose: 15 mg Documented By: CHAITANYA Vital Signs Vital signs: Vital Signs - 8 hr 02/08/23 13:58 02/08/23 17:17 02/08/23 17:17 Temperature 98.1 F Pulse Rate 75 59 L Respiratory Rate 18 Blood Pressure 127/80 125/71 Pulse Oximetry 97 98 Oxygen Delivery Method Room Air Room Air 02/08/23 17:30 02/08/23 17:30 02/08/23 18:00 Temperature Pulse Rate 58 L Respiratory Rate Blood Pressure 124/71 125/70 Pulse Oximetry 99 Oxygen Delivery Method 02/08/23 18:00 02/08/23 18:10 02/08/23 18:55 Temperature Pulse Rate 56 L 60 Respiratory Rate Blood Pressure 133/82 Pulse Oximetry 99 98 Oxygen Delivery Method Room Air Room Air <Geraldo Wise DO - Last Filed: 02/12/23 19:40> Orders Ordered: Discontinued Medications Amoxicillin/Clavulanate Potassium (Amoxicillin/Clav 875/125 Mg) 1 tab PO NOW ONE Stop: 02/08/23 18:46 Last Admin: 02/08/23 18:58 Dose: 1 tab Documented By: AT Sodium Chloride (Normal Saline 0.9%) 1,000 mls @ 1,000 mls/hr IV BOLUS ONE Stop: 02/08/23 17:17 Last Infusion: 02/08/23 17:35 Dose: 0 mls/hr Documented By: Admin: 02/08/23 16:27 Dose: 1,000 mls/hr Documented By: CHAITANYA Ceftriaxone Sodium 1,000 mg/ (Sodium Chloride) 100 mls @ 200 mls/hr IV NOW ONE Stop: 02/08/23 16:47 Last Infusion: 02/08/23 18:15 Dose: 0 mls/hr Documented By: Admin: 02/08/23 17:34 Dose: 200 mls/hr Documented By: AT Ketorolac Tromethamine (Ketorolac 30 Mg/Ml Vial) 15 mg IV NOW ONE Stop: 02/08/23 16:14 Last Admin: 02/08/23 16:18 Dose: 15 mg Documented By: KB Vital Signs Vital signs: Vital Signs - 8 hr 02/08/23 13:58 02/08/23 17:17 02/08/23 17:17 Temperature 98.1 F Pulse Rate 75 59 L Respiratory Rate 18 Blood Pressure 127/80 125/71 Pulse Oximetry 97 98 Oxygen Delivery Method Room Air Room Air 02/08/23 17:30 02/08/23 17:30 02/08/23 18:00 Temperature Pulse Rate 58 L Respiratory Rate Blood Pressure 124/71 125/70 Pulse Oximetry 99 Oxygen Delivery Method 02/08/23 18:00 02/08/23 18:10 02/08/23 18:55 Temperature Pulse Rate 56 L 60 Respiratory Rate Blood Pressure 133/82 Pulse Oximetry 99 98 Oxygen Delivery Method Room Air Room Air MDM - Male Genitourinary <Whit Chinchilla PA-C - Last Filed: 02/08/23 20:35> Differential Diagnosis Differential diagnosis: Likely urinary tract infection and other (Diverticulitis, colo vesical fistula) Lab Data 02/08/23 15:45 02/08/23 15:45 Labs: Lab Results 02/08/23 02/08/23 02/08/23 Range/Units 14:50 15:45 15:45 WBC 10.4 (4.5-11.0) X10^3/uL RBC 4.64 (4.5-5.9) X10^6/uL Hgb 14.0 (13.5-17.5) g/dL Hct 41.3 (41-53) % MCV 89.1 (80-100) fL MCH 30.3 (26-34) PG MCHC 34.0 (30-36) % RDW 14.3 (11.6-14.8) % Plt Count 376 (150-400) X10^3/uL Neut % (Auto) 71.2 (50-75) % Lymph % (Auto) 18.5 L (25-40) % Jewell % (Auto) 6.6 (3-14) % Eos % (Auto) 2.6 (2-4) % Baso % (Auto) 1.1 (0-2) % Neut # (Auto) 7400 H (0559-2368) /uL Lymph # (Auto) 1900 (4651-3205) /uL Jewell # (Auto) 700 (0-900) /uL Eos # (Auto) 300 (0-450) /uL Baso # (Auto) 100 (0-100) /uL Sodium 138 (137-145) mmol/L Potassium 4.2 (3.4-5.1) mmol/L Chloride 102 (98-107) mmol/L Carbon Dioxide 27 (22-32) mmol/L BUN 16 (9-20) mg/dL Creatinine 1.26 H (0.66-1.25) mg/dL Estimated GFR > 60 (>60) mL/min BUN/Creatinine Ratio 12.7 (6-22) Glucose 90 (70-100) mg/dL Calcium 9.1 (8.4-10.2) mg/dL Urine Color Yellow Urine Appearance Sl cloudy Urine pH 6.0 (4.5-8.0) Ur Specific [place] 1.020 (1.000-1.035) Urine Protein 1+ H (Negative) Urine Glucose (UA) Negative (Negative) g/dL Urine Ketones Negative (NEGATIVE) Urine Occult Blood 2+ H (Negative) Urine Nitrate Negative (Negative) Urine Bilirubin Negative (NEGATIVE) Urine Urobilinogen 0.2 (0.2) E.U./dL Ur Leukocyte Esterase 1+ H (NEGATIVE) Urine RBC 10-30/hpf H (0-5/HPF) Urine WBC 10-30/hpf H (0-5/HPF) Ur Squamous Epith Cells None seen (0-5/HPF) Urine Bacteria Few (2-10) H (None) Ur Culture Indicated? Specimen cultured Imaging Data CT scan - abdomen/pelvis: My Impression: I agree with radiologist's interpretation Radiologist's Impression: [address] [address] [address] Scan Report Signed Patient: Moustapha Strong MR#: [id number] : 1970 Acct:[id number] Age/Sex: 52 / M Date of Service: 02/08/23 Loc: ED Accession Number: [id number] ?? Procedure: CT kidney ureter bladder (KUB) Ordering Provider: Whit Chinchilla P.A-C PROCEDURE:? CT KIDNEY URETER BLADDER (KUB) ? INDICATIONS:? eval ureterolithiasis, possible pyelo ? TECHNIQUE:? Axial sections were acquired from the lung bases to the pubic symphysis.? Coronal and sagittal reformats were performed.? For radiation dose reduction, the following was used: ?automated exposure control, adjustment of mA and/or kV according to patient size.? ? COMPARISON:? None. ? FINDINGS:? Image quality:? Excellent.? ? Lung bases:? Unremarkable.? Small hiatal hernia. Heart:? No significant findings. ? URINARY: Right Kidney: ? No stones or hydronephrosis.? Right Ureter:? No hydroureter.? ? Left Kidney: ? No stones or hydronephrosis. Left Ureter:? No hydroureter.? ? Bladder:? No stones.? There is bladder wall thickening involving the left lateral and superior bladder wall adjacent to a loop of sigmoid colon.? There is air within the bladder lumen.? The CT findings suggest colovesical fistula.? ? ? ABDOMEN: Liver:? Unremarkable.? ? Gallbladder:? Contracted.? No radiopaque gallstones.? ? Biliary ducts:? Unremarkable.? ? Pancreas:? Unremarkable.? ? Spleen:? Unremarkable.? ? Adrenal Glands:? Unremarkable.? ? ? Stomach and Bowel:? Stomach, small bowel loops, and colon are normal in caliber.? Diverticulosis.? There is focal thickening and mild pericolonic stranding of the sigmoid colon suggesting diverticulitis. Peritoneum:? No abnormal intraperitoneal fluid.? No free air.? ? Ventral Wall: ? No hernia.? Abdominal Nodes:? No enlarged retroperitoneal or mesenteric lymph nodes.? Vessels:? Aorta and inferior vena cava are normal in size.? ? PELVIS: Pelvic Organs:? Unremarkable.? ? Pelvic Nodes: Unremarkable. Miscellaneous: No inguinal hernias are seen. ? ? ? Bones:? Unremarkable. ? IMPRESSION:? ? 1. Suspect colovesical fistula related to acute diverticulitis.? There is bladder wall thickening along the left lateral superior bladder wall adjacent to a loop of inflamed sigmoid colon.? Gas collection is noted within the bladder lumen.? Please correlate with clinical history and urinalysis.? ? The result was discussed with Dr. Chinchilla. ? Dictated by: Manish Torres M.D. on 02/08/2023 at 17:02 ? ? Approved by: Manish Torres M.D. on 02/08/2023 at 17:11?? [facility] Narrative Medical decision making narrative: 52-year-old male history of diverticulitis presents with concern for persistent now recurring urinary symptoms and foaming/air with his urine and flank pains that have been sharp since yesterday. Per patient history and on chart review patient was started on Keflex about 10 days ago after finding an E coli UTI. Patient reported improvement but then Re worsening yesterday with low flank pain and urinary symptoms returning. Urine dip today is notable for persistent bacteria despite patient's course of Keflex and starting Bactrim yesterday. CT scan KUB obtained for further evaluation returns suspicious for colovesical fistula given air in the bladder and bladder wall thickening and inflammation adjacent to diverticulitis. Patient did not have a leukocytosis however he has been on oral antibiotics for much of the past 10 days. Discussed the patient with Dr. Alvarado, on-call surgeon, given that patient is nontoxic with generally unremarkable labs today and his pain was well-controlled with Toradol, reasonable for outpatient follow-up we will place the patient on Augmentin per Dr. Alvarado which should cover both his UTI based on the recent culture obtained as well as his diverticulitis. Did senior living sales counselor the patient regarding the plan for a follow-up as an outpatient for potential surgical planning, as well as monitoring carefully for new or worsening symptoms and he is aware that he should not hesitate to return to the emergency department if he feels he is worsening. Patient was in agreement with the plan, return precautions provided, follow-up plan discussed, all questions answered. <Noelle Robertson, DO - Last Filed: 02/11/23 09:17> Lab Data Labs: Lab Results 02/08/23 02/08/23 02/08/23 Range/Units 14:50 15:45 15:45 WBC 10.4 (4.5-11.0) X10^3/uL RBC 4.64 (4.5-5.9) X10^6/uL Hgb 14.0 (13.5-17.5) g/dL Hct 41.3 (41-53) % MCV 89.1 (80-100) fL MCH 30.3 (26-34) PG MCHC 34.0 (30-36) % RDW 14.3 (11.6-14.8) % Plt Count 376 (150-400) X10^3/uL Neut % (Auto) 71.2 (50-75) % Lymph % (Auto) 18.5 L (25-40) % Jewell % (Auto) 6.6 (3-14) % Eos % (Auto) 2.6 (2-4) % Baso % (Auto) 1.1 (0-2) % Neut # (Auto) 7400 H (5697-8571) /uL Lymph # (Auto) 1900 (5161-3516) /uL Jewell # (Auto) 700 (0-900) /uL Eos # (Auto) 300 (0-450) /uL Baso # (Auto) 100 (0-100) /uL Sodium 138 (137-145) mmol/L Potassium 4.2 (3.4-5.1) mmol/L Chloride 102 (98-107) mmol/L Carbon Dioxide 27 (22-32) mmol/L BUN 16 (9-20) mg/dL Creatinine 1.26 H (0.66-1.25) mg/dL Estimated GFR > 60 (>60) mL/min BUN/Creatinine Ratio 12.7 (6-22) Glucose 90 (70-100) mg/dL Calcium 9.1 (8.4-10.2) mg/dL Urine Color Yellow Urine Appearance Sl cloudy Urine pH 6.0 (4.5-8.0) Ur Specific [place] 1.020 (1.000-1.035) Urine Protein 1+ H (Negative) Urine Glucose (UA) Negative (Negative) g/dL Urine Ketones Negative (NEGATIVE) Urine Occult Blood 2+ H (Negative) Urine Nitrate Negative (Negative) Urine Bilirubin Negative (NEGATIVE) Urine Urobilinogen 0.2 (0.2) E.U./dL Ur Leukocyte Esterase 1+ H (NEGATIVE) Urine RBC 10-30/hpf H (0-5/HPF) Urine WBC 10-30/hpf H (0-5/HPF) Ur Squamous Epith Cells None seen (0-5/HPF) Urine Bacteria Few (2-10) H (None) Ur Culture Indicated? Specimen cultured MDM Narrative Medical decision making narrative: 52-year-old male history of diverticulitis presents with concern for persistent now recurring urinary symptoms and foaming/air with his urine and flank pains that have been sharp since yesterday. Per patient history and on chart review patient was started on Keflex about 10 days ago after finding an E coli UTI. Patient reported improvement but then Re worsening yesterday with low flank pain and urinary symptoms returning. Urine dip today is notable for persistent bacteria despite patient's course of Keflex and starting Bactrim yesterday. CT scan KUB obtained for further evaluation returns suspicious for colovesical fistula given air in the bladder and bladder wall thickening and inflammation adjacent to diverticulitis. Patient did not have a leukocytosis however he has been on oral antibiotics for much of the past 10 days. Discussed the patient with Dr. Alvarado, on-call surgeon, given that patient is nontoxic with generally unremarkable labs today and his pain was well-controlled with Toradol, reasonable for outpatient follow-up we will place the patient on Augmentin per Dr. Alvarado which should cover both his UTI based on the recent culture obtained as well as his diverticulitis. Did senior living sales counselor the patient regarding the plan for a follow-up as an outpatient for potential surgical planning, as well as monitoring carefully for new or worsening symptoms and he is aware that he should not hesitate to return to the emergency department if he feels he is worsening. Patient was in agreement with the plan, return precautions provided, follow-up plan discussed, all questions answered. -urine culture returns E coli [id number], it is multidrug resistant including ampicillin cefazolin cefepime ceftazidime ceftriaxone gentamicin Bactrim in sensitive to Levaquin however is quite sensitive to Cipro. I have called and spoken to patient myself he reports that he has been on 2 days of Augmentin he is having mild diarrhea but overall feeling better. Augmentin will work sensitivity of CHARISSA 8, Cipro is CHARISSA <0.25, at this time patient feels like he is improving he may continue the Augmentin however he continues feel sick I have sent in a prescription for Cipro. <Geraldo Wise, - Last Filed: 02/12/23 19:40> Lab Data Labs: Lab Results 02/08/23 02/08/23 02/08/23 Range/Units 14:50 15:45 15:45 WBC 10.4 (4.5-11.0) X10^3/uL RBC 4.64 (4.5-5.9) X10^6/uL Hgb 14.0 (13.5-17.5) g/dL Hct 41.3 (41-53) % MCV 89.1 (80-100) fL MCH 30.3 (26-34) PG MCHC 34.0 (30-36) % RDW 14.3 (11.6-14.8) % Plt Count 376 (150-400) X10^3/uL Neut % (Auto) 71.2 (50-75) % Lymph % (Auto) 18.5 L (25-40) % Jewell % (Auto) 6.6 (3-14) % Eos % (Auto) 2.6 (2-4) % Baso % (Auto) 1.1 (0-2) % Neut # (Auto) 7400 H (3048-9464) /uL Lymph # (Auto) 1900 (7264-7102) /uL Jewell # (Auto) 700 (0-900) /uL Eos # (Auto) 300 (0-450) /uL Baso # (Auto) 100 (0-100) /uL Sodium 138 (137-145) mmol/L Potassium 4.2 (3.4-5.1) mmol/L Chloride 102 (98-107) mmol/L Carbon Dioxide 27 (22-32) mmol/L BUN 16 (9-20) mg/dL Creatinine 1.26 H (0.66-1.25) mg/dL Estimated GFR > 60 (>60) mL/min BUN/Creatinine Ratio 12.7 (6-22) Glucose 90 (70-100) mg/dL Calcium 9.1 (8.4-10.2) mg/dL Urine Color Yellow Urine Appearance Sl cloudy Urine pH 6.0 (4.5-8.0) Ur Specific [place] 1.020 (1.000-1.035) Urine Protein 1+ H (Negative) Urine Glucose (UA) Negative (Negative) g/dL Urine Ketones Negative (NEGATIVE) Urine Occult Blood 2+ H (Negative) Urine Nitrate Negative (Negative) Urine Bilirubin Negative (NEGATIVE) Urine Urobilinogen 0.2 (0.2) E.U./dL Ur Leukocyte Esterase 1+ H (NEGATIVE) Urine RBC 10-30/hpf H (0-5/HPF) Urine WBC 10-30/hpf H (0-5/HPF) Ur Squamous Epith Cells None seen (0-5/HPF) Urine Bacteria Few (2-10) H (None) Ur Culture Indicated? Specimen cultured Discharge Plan Departure Patient Disposition: Home Clinical Impression: Diverticulitis, Colovesical fistula, Chronic UTI Instructions: DI for Diverticulitis, DI for Urinary Tract Infection (UTI) Activity Restrictions/Additional Instructions: Thank you for letting us be part of your care today in the emergency department. You came in with concern for possible persistent UTI and some pain in her flanks, we did do some labs today and rechecked her urine and a CT scan to evaluate, the CT scan shows that you have a diverticulitis which is a inflammation and outpouching of the wall of your colon, in addition your CT scan as well as your persistent E coli UTI and the symptoms you were having of having air coming out when you P are consistent with a fistula which is an opening or passageway between your colon and your bladder, this is likely the source of your persistent UTI that is not resolving with the Keflex and you will need to see surgery for follow-up for this, we did consult surgery today and it is reasonable for you to his be seen as an outpatient in clinic for further planning but you do need to start a different antibiotic, please stop the Bactrim and start the Augmentin prescribed today. Of course in the meantime if you have new or worsening symptoms such as fevers, chills, persistent or severe pain, nausea, vomiting, or other symptoms of concern do not hesitate to present to the emergency department or seek medical care for re-evaluation. There is no evidence of an emergent or life threatening illness at this time, but follow up with your doctor in 1-2 days is recommended nonetheless to continue to rule out serious underlying causes of your symptoms. Please call the office for an appointment. Please return to the Emergency Department for any worsening or persistent symptoms. Please take medications as directed. Prescriptions: New amoxicillin-pot clavulanate [Augmentin] 500-125 mg tablet 1 tab PO Q8H 12 Days Qty: 36 0RF ciprofloxacin HCl [Cipro] 500 mg tablet 500 mg PO BID Qty: 14 0RF Discontinued sulfamethoxazole-trimethoprim [Bactrim DS] 800-160 mg tablet 1 tab PO Q12H Qty: 14 0RF No Action pantoprazole 40 MG tablet,delayed release (DR/EC) 40 mg PO QDAY Qty: 30 Referrals: Johnny Self MD [Physician] - (colovesicular fistula, diverticulitis, persistent UTI) Sukhjinder Trevizo MD [Primary Care Provider] - Stand Alone Forms: Patient Portal/API <Geraldo Wise DO - Last Filed: 02/12/23 19:40> Cosign ED Attending Cosignature Attestation: Dr Wise Co-Sign Statement: I was available for consultation during this patient's emergency department visit. This chart is signed by myself for administrative purposes only. I did not have direct contact with this patient during this visit. They were seen independently by the APC.
[2023-02-08 17:17] VITALS: BP 125/71; PULSE 59; O2SAT 98
[2023-02-08 17:30] VITALS: BP 124/71; PULSE 58; O2SAT 99
[2023-02-08] MEDS: cefTRIAXone 1,000 MG in SODIUM CHLORIDE 0.9% 100 ML 200 MG IV (17:34)
[2023-02-08 18:00] VITALS: BP 125/70; PULSE 56; O2SAT 99
[2023-02-08 18:10] VITALS: PULSE 60; O2SAT 98
[2023-02-08 18:55] VITALS: BP 133/82
[2023-02-08] MEDS: AMOXICILLIN/CLAV 875/125 MG 1 TAB PO (18:58)
== END 2023-02-08 19:00 | disposition home or self-care (01) ==
PROVIDERS: Emergency Medicine; Emergency Provider Student in an Organized Health Care Education/Training Program; PCP Family Medicine
DX: K57.92 Diverticulitis of intestine, part unspecified, without perforation or abscess without bleeding (principal); N39.0 Urinary tract infection, site not specified; N32.1 Vesicointestinal fistula
CPT/HCPCS: 36415; 51798; 74176; 80048; 81001; 85025; 87077; 87086; 87186; 96361; 96365; 96375; 99284; J0696; J1885

== ENCOUNTER → 2023-03-09 15:32 | Outpatient (CLI) | payer BC, SELFPAY | PROVIDERS: PCP Family Medicine; Visit Provider Specialist | DX: K57.92 Diverticulitis of intestine, part unspecified, without perforation or abscess without bleeding (principal); N32.1 Vesicointestinal fistula; N39.0 Urinary tract infection, site not specified | CPT/HCPCS: 51798; 81002; 87077; 87086; 87186 ==

== ENCOUNTER 2023-03-15 06:21 | Inpatient (IN) | payer BC, SELFPAY ==
[2023-03-13 09:36] VITALS: BMI 26.9
[2023-03-15] VITALS (17 sets, daily range): BP systolic 107–124; BP diastolic 53–81; PULSE 58–106; RESP 14–20; TEMP 36.6–37.4; O2SAT 92–100; BMI 26.5
--- NOTE | 2023-03-15 | PATH_ITS ---
[facility] Accession Number: [id number] No. of containers..02 Tissue . 01 Material submitted: . PART A: colon - SIGMOID COLON PART B: colon - ANASTOMOTIC DONUTS . 01 Diagnosis: A. 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 Ten benign pericolonic lymph nodes. Negative for dysplasia or malignancy. . B. Anastomotic Donuts: Colonic tissue with no diagnostic abnormality. Negative for active inflammation, granulomas, dysplasia or malignancy. [facility] 03/20/2023 1453 Local . 01 Electronically signed: . Uday Romeo MD, PhD, Pathologist NPI- [id number] . 01 Gross description: . A. Received fresh and subsequently placed in formalin per client labeled with the patient's name, , and sigmoid colon, and consists of two unoriented, loosely attached fragments of colon. The first measures 18.5 cm in length by 2.8 cm in average diameter. The second measures 8.7 cm in length by 2.3 cm in average diameter. The fragemns are loosely connected with a small piece of soft tissue and both lumens near this attachment are patent and grossly consistent with full thickness defect. The opposites ends of both fragments are closed with a staple line. The stapled end of the longer fragment is inked blue, the disrupted end of the longer fragment is inked orange, the disrupted end of the shorter fragment is inked green, and the stapled end of the shorter fragment is inked black. The serosa is roberson to hemorrhagic and roughened with a full thickness defect identified on the shortest fragment measuring 0.6 cm in diameter, and the serosa in this area is inked red. The remaining serosa is grossly intact with a moderate amount of attached adipose extending out to 4.3 cm. The roughened area consistent with radial margin is inked yellow. The mucosa is pink-roberson and velvety with no polyps or lesions identified. The ballard average 0.6 cm thick with numerous diverticula extending up to 1.2 cm in depth. Adjacent to a diverticulum in the smaller fragment of colon is a cavity in the adipose containing gelatinous material as well as organic material consistent with seeds, and is adjacent to a diverticulum. The mucosa adjacent to the defected area is roberson-brown and irregular. No lesions are identified. Palpation reveals nine roberson lymph node candidates ranging from 0.2 to 1.2 cm in greatest dimension. Receptionist Secretary sections are submitted as follows: A1: Receptionist Secretary blue and black margins en face. A2: Receptionist Secretary yellow margin en face. A3-A4: Adipose cavity with adjacent diverticulum. A5-A6: Receptionist Secretary disrupted area and adjoining soft tissue. A7-A9: Additional patient registration representative sections with diverticula. A10: Single bisected lymph node candidate. A11: Single bisected lymph node candidate. A12: Single bisected lymph node candidate. A13: Single bisected lymph node candidate. A14: Two intact lymph node candidates. A15: Three intact lymph node candidates. B. Received in formalin labeled with the patient's name, , and anastomotic donut, and consists of two fragments of colon. The first is disrupted and has a blue suture with no designation, and measures 2.0 x 1.7 x 0.8 cm, and is inked blue. The second fragment measures 1.7 x 1.7 x 0.9 cm and is inked green. The mucosa is roberson and velvety with no lesions identified, and the ballard average 0.3 cm thick. Receptionist Secretary sections are submitted in cassette B1. ([id number]) /JOSR 03/17/2023 1159 Local . 01 Pathologist provided ICD-10: N32.1, K57.21 . 01 CPT . 078843, 673655 Specimen Comment: A courtesy copy of this report has been sent to [phone] Performed at: 01 [facility] [address] [place] [address] [address], [place], [place] [id number] MD Jeremiah Kaur MD Phone: [phone]
[2023-03-15] MEDS: LACTATED RINGERS 1,000 ML 100 ML IV ×2 (07:09→16:21)
[2023-03-15 07:23] LABS: COVID19 -Nasal RAPID POSITIVE (Negative)
--- NOTE | 2023-03-15 07:35 | SUR.PREOP ---
Pt covid positive. Dr Nelson and Dr Self notified. Surgery will proceed as scheduled.
--- NOTE | 2023-03-15 07:40 | PM.PREOP ---
Pre-operative Note Interval Note History & Physical reviewed/Exam performed by Physician: Yes Changes to H&P: No H&P completed within 30 days and has changed as indicated here:: +Cough COVID positive no SOB fever will proceed
--- NOTE | 2023-03-15 07:41 | PM.PREOP ---
Pre-operative Note COVID-19 COVID-19 status: Positive Result date/Date tested (Pos, Neg/Pending): 03/15/23 Criteria for continued procedure: Expected advancement of disease process, Possibility delay results in more complex future surgery or treatment, Continuing or worsening of significant or severe pain, Delay expected to result in less-positive ultimate med/surg outcome and Non-surgical alternatives not available or appropriate per current SOC Interval Note History & Physical reviewed/Exam performed by Physician: Yes Changes to H&P: No
[2023-03-15] MEDS: PIPERACILLIN/TAZO 4.5 GM in SODIUM CHLORIDE 0.9% 100 ML IV (08:12)
[2023-03-15] MEDS: MINERAL OIL LIGHT TOPICAL 10 ML TOP (08:35)
--- NOTE | 2023-03-15 08:59 | P.OP_ITS ---
Operative Date/Time/Diagnoses Date of procedure: 03/15/23 Time of procedure: 08:40 Pre-op diagnosis: 1. Colovesical fistula. 2. Recurrent UTI. Post-op diagnosis: same Procedure & Clinicians Procedure: 1. Cystoscopy/placement bilateral illuminated ureteral stents. Same procedure as scheduled: Yes Indications: 1. Colovesical fistula. 2. Recurrent UTI. Surgeon: Kassandra Nelson Click Yes if Unassisted: Yes Anesthesia Type: General Operative Notes Findings: 1. Urethra-normal caliber without annular stricture or lesion. 2. External sphincter-coapted with normal overlying urothelium. 3. Prostate-3.5 cm length with moderate lateral lobe hyperplasia. 4. Bladder-trace to 1+ trabeculation. At the left superior lateral bladder wall there is bullous edema and erythema with central intensity consistent with preoperative diagnosis of colovesical fistula. Intraoperative photographs were obtained. Closure Type: not applicable Specimen(s): none sent Applied: other (Bilateral illuminated ureteral filaments within ureteral sheath.) Estimated Blood Loss (mL): 0 Blood products transfused: none Procedure in detail: The patient was positioned in supine was administered general anesthesia. The patient was then repositioned in semi-lithotomy and the lower abdomen, genitalia, and groin were then prepped and draped in sterile fashion. The 25 Sinhala knight endoscope was then prepared with double bridge and was advanced in the lower urinary tract with findings as described above. The ureteral sheath were then advanced into each of the ports of the dual-lumen bridge and advanced toward the beak of the 25 Sinhala knight endoscope. A 0.35 hybrid guidewire was then advanced through the sheath on the right and was insinuated within the left ureteral orifice and then advanced proximally under fluoroscopic and direct visualization. The calibrated sheath was then advanced over the hybrid guidewire with its proximal in positioned within the left renal pelvis. Same steps and maneuvers were performed using the other ureteral sheath and the same hybrid guidewire on the right side. The 0.35 hybrid guidewire was then removed. The bladder was then drained completely in the knight endoscope was backloaded off the calibrated ureteral sheaths. The filaments were then prepped with mineral oil and advanced up each of the sheaths. Once in position they were secured to 1 another using small Tegaderm transparent tabs. Now a 16 Sinhala Suarez catheter was inserted lower urinary tract and the balloon was inflated 10 cc and then was snugged gently against the bladder neck. The illuminated ureteral sheaths were then secured to the Suarez catheter, again using a transparent Tegaderm folded in half. The illuminated filaments were then secured to the connections and then the system was connected to the light source. The light transmitting cords were secured to the drape with provided surgical clips. Dr. Self then proceeded with his operative plan, the details of which can be found in his operative report. Complications: none Post-operative Condition: stable Disposition: PACU Plan for aftercare: Acute care per Dr. Self.
[2023-03-15] MEDS: LACTATED RINGERS 1,000 ML 42 ML IV ×3 (09:15→13:01)
--- NOTE | 2023-03-15 09:21 | SUR.OPER ---
Lithotomy on padded OR bed. Gilgo Pad Positioner under torso. Head on pillow, arms padded and tucked at sides. Legs secured in padded yellow fins stirrups.
[2023-03-15] MEDS: BUPIVACAINE 0.25% (PF) VIAL 30 ML INJ (10:05)
[2023-03-15] MEDS: PIPERACILLIN/TAZO 3.375 GM in SODIUM CHLORIDE 0.9% 100 ML IV ×2 (12:00→20:31)
[2023-03-15] MEDS: METHYLENE BLUE 50 MG/10 ML VIAL IV (13:27)
--- NOTE | 2023-03-15 13:41 | PM.OP.1 ---
Operative Date/Time/Diagnoses Date of procedure: 03/15/23 Time of procedure: 13:25 Pre-op diagnosis: 1. Intraoperative iatrogenic injury to the right distal ureter. 2. Colovesical fistula. Post-op diagnosis: same Procedure & Clinicians Procedure: 1. Primary repair right ureteral transection. 2. Placement 6 Malawian by 22-32 cm multi-length right ureteral stent. Same procedure as scheduled: No (Iatrogenic injury to ureter schedule.) Indications: 1. Near complete transection of the right distal ureter. Surgeon: Kassandra Nelson Wildlife Refuge Manager: Johnny Self Click Yes if Unassisted: No Anesthesia Type: General Operative Notes Findings: At approximately the junction of the middle and distal 1/3 of the right ureter there was a nearly transverse and near complete transection of the ureter. The right ureteral lighted stent device could readily be visualized. The posterior portion of the ureter at this site remained in continuity. It lay nearly directly over the right common iliac artery. The injury occurred reportedly secondary to use of the cautery/cutting sure Seal device. The margins were clean and only a small area of about a 2 mm margin at the posterior medial aspect seems as though the blood supply may have been cautery compromise. There was abundant periureteral vascularized tissue in the vicinity above and below the site. Closure Type: primary Specimen(s): none sent Applied: other (Six Malawian by 22-32 cm multi length stent) Estimated Blood Loss (mL): 0 Blood products transfused: none Procedure in detail: The patient was positioned in semilithotomy and a small midline infraumbilical laparotomy was present. Bowel and mesentery were appropriately retracted. The vicinity of the ureteral injury was well-visualized. Using a 0.35 hybrid wire a 6 Malawian by 22-32 cm multi-length stent was advanced proximally an appropriate distance and then the distal coil was advanced, and painstakingly positioned distally within the ureteral lumen and adjacent to the visualized illuminated ureteral stent (currently with power off). A Rivera scissor was used to divide the anterior margin of the ureteral transection in the anterior midline a proximally 4 mm distally, and a proximally 4 mm proximally. Heineke-Mikulicz repair with running 4-0 Monocryl was then performed. Interrupted 2-0 Vicryl was then used in interrupted fashion to reapproximate the abundant and well-vascularized periureteral tissue laterally anteriorly and medially, effectively reducing any undue tension on the anastomosis. Hemostasis was excellent. Dr. Self and Mr. Hernandez then resumed completion of Dr. Self's operative plan. Complications: none Post-operative Condition: stable Disposition: PACU Plan for aftercare: 1. Acute care per Dr. Self. 2. Indwelling Suarez catheter-duration to be discussed with Dr. Self. 3. Plan to leave indwelling right ureteral stent in Situ for 6 weeks and conduct contrast CT with delayed images before outpatient removal.
[2023-03-15] MEDS: BUPIVACAINE LIPOSOME 266 MG/20 ML VIAL INJ (14:23)
--- NOTE | 2023-03-15 14:56 | SUR.PHASEI ---
pt recovered in OR dt iso status
[2023-03-15] MEDS: HYDROMORPHONE 2 MG INJ IV ×4 (15:19→15:36)
[2023-03-15] MEDS: IBUPROFEN 600 MG TABLET PO ×2 (16:21→20:31)
[2023-03-15] MEDS: ACETAMINOPHEN 325 MG TABLET 650 MG PO ×2 (16:21→20:31)
--- NOTE | 2023-03-15 16:44 | P.OP_ITS ---
Operative Date/Time/Diagnoses Date of procedure: 03/15/23 Time of procedure: 16:45 Pre-op diagnosis: colovesicular fistula complicated diverticulitis Post-op diagnosis: same Procedure & Clinicians Procedure: Laparoscopic assisted sigmoid colectomy Placement of ureteral stents Repair of iatrogenic right ureter laceration Same procedure as scheduled: Yes Indications: 52-year-old man with multiple episodes of diverticulitis who has developed a colovesicular fistula. He is here today for a sigmoid colectomy. Surgeon: Johnny Self Sausage Tier: Lawrence Hernandez Anesthesia Type: General Operative Notes Findings: Negative leak test of the anastomosis No evidence of methylene blue leak from bladder or into the colon. Partial laceration of the right mid ureter which was repaired Specimen(s): other (Sigmoid colon) Estimated Blood Loss (mL): 500 Procedure in detail: Patient was brought to the operating room placed supine on the table. Bilateral lower extremity compression devices were applied. General anesthesia was induced and he was intubated with an endotracheal tube. He was then prepped and draped in sterile fashion. He received Zosyn prior to start of procedure. Please refer to Dr. Nelson of Urology for dictation of placement of lighted ureteral stents. A supraumbilical incision was made the fascia was incised and the abdomen was entered atraumatically. A 12 mm balloon trocar was then placed into the abdomen pneumoperitoneum was established and a evaluation of the abdomen was made. There was adhesions within the right lower quadrant consistent with his previous appendectomy. There were significant adhesions in the left pelvis consistent with a history of complicated diverticulitis. There was no evidence of injury upon entry. Additional working ports were placed 11 mm in the right lower quadrant a 5 mm in the right upper quadrant and a 5 mm in the left lower qu adrant. Patient was positioned head down left side up small bowel was moved out of the pelvis into the upper abdomen. The sigmoid colon was then dissected off of the lateral abdominal wall and the incision was carried along the white line of Toldt to reach the splenic flexure. It appeared that he would need mobilization of the splenic flexure in order to create the length for the low anastomosis and so splenic flexure mobilization was performed. The gastro colic ligament was opened and the lesser sac was open. The gastrocolic ligament was incised from the midline to to the spleen. The splenocolic ligament was then incised. Pancreas was observed and kept posterior out of harm's way. This allowed the splenic flexure to move towards the pelvis. Next attention was directed towards the mesentery. The colon was elevated and the CARLOS pedicle was identified. The vascular pedicle was skeletonized. A window was made bluntly and the left ureter with its lighted ureteral stent was clearly visible and posterior kept out of harm's way. ligation of the CARLOS was performed with the LigaSure distal to the left colonic vessel. The IMV was divided in the same fashion. Attention was then turned to the left pelvic sidewall. There were very dense adhesions between the sidewall and the colon. Using the suction accounting supervisor blunt dissection was performed dissecting the colon off the wall. This was quite difficult and ultimately a lower midline incision was made in order to finger fracture the sigmoid off the wall. The mesentery to the sigmoid and proximal rectum was very thick and it was divided as close to the colon as possible. Several portions of the mesentery were oversewn with silk for hemostasis. Just proximal to the sigmoid colon window within the mesentery was made and the bowel was divided with the curved TA stapler. In the course of dividing the phlegmon on the posterior aspect of the sigmoid colon we noted the presence of the right ureteral stent. We identified a partial laceration of the right ureter with the stent in place, the back wall was intact. The ureter had to be sharply dissected off of the phlegmon of the sigmoid colon in order to mobilize it out of harms way.. Circumferential Dissection was continued down to the mid rectum where soft pliable tissue was identified. The bowel was resected using the circular TA stapler. At this point Dr. Nelson of Urology return and performed a repair of the iatrogenic right ureter injury. No obvious colovesicular fistula was identified during the course of the colon from the bladder. Therefore we instilled methylene blue into the bladder, there was no evidence of leak into the peritoneal cavity and upon introducing a colonoscope into the rectal stump there was no evidence of communication between the 2 structures. Satisfied that we had taken down the fistula we proceeded with an end to end anastomosis. A 29 mm anvil was placed into the proximal colon and secured with Prolene suture. The stapler was then deployed through the rectum its point deployed under direct visualization. The stapler and the anvil were mated under direct visualization careful to ensure that there was no tension that it was well perfused and free of twists. Stapler was fired and 2 anastomotic donuts were identified. The proximal donut tore during its removal from the stapler but was otherwise intact, the distal donut was entirely intact. A leak test was then performed the colonoscope was reintroduced the rectum was insufflated and the bowel was held beneath the irrigation there was no evidence of leak. The anastomosis was transverse with the scope and it was hemostatic and widely patent. The abdomen was then copiously lavaged. Exparel was injected into the abdominal wall. Hemostasis wa s checked. The abdomen was then closed with a running 1. PDS suture. Subcutaneous tissue was reapproximated with Vicryl and then the skin closed with Monocryl. Patient tolerated the procedure well and was transferred to recovery in good condition. The assistance of Lawrence Hernandez was critical for his assistance with exposure and formation of the anastomosis. Following the operation I did discuss with the patient and his that the R ureter had sustained an iatrogenic injury and had been repaired in good condition. I explained that the injury will generally heal but will require the stent to remain for approximately 2 months. Complications: other (Iatrogenic right ureter injury) Post-operative Condition: stable Disposition: Acute Care
[2023-03-15] MEDS: OXYCODONE IR 5 MG TABLET PO ×2 (18:44→23:07)
[2023-03-15] MEDS: PANTOPRAZOLE DR 40 MG TABLET PO (20:31)
[2023-03-15] MEDS: ONDANSETRON 4 MG/2 ML INJ IV (20:31)
[2023-03-16] VITALS (12 sets, daily range): BP systolic 101–116; BP diastolic 53–64; PULSE 66–94; RESP 16–19; TEMP 36.7–37.7; O2SAT 92–98
[2023-03-16] MEDS: IBUPROFEN 600 MG TABLET PO ×4 (02:25→20:37)
[2023-03-16] MEDS: ACETAMINOPHEN 325 MG TABLET 650 MG PO ×4 (02:25→20:37)
[2023-03-16] MEDS: PIPERACILLIN/TAZO 3.375 GM in SODIUM CHLORIDE 0.9% 100 ML IV ×3 (02:26→20:33)
[2023-03-16 05:21] LABS: Add Manual Diff / Slide Review NO; Basophils Absolute Auto 0 /uL (0-100); Basophils Percent Auto 0.2 % (0-2); Eosinophils Absolute Auto 0 /uL (0-450); Hematocrit 30.2 % (41-53); Hemoglobin 10.6 g/dL (13.5-17.5); Lymphocytes Absolute Auto 1400 /uL (1100-4500); Lymphocytes Percent Auto 15.7 % (25-40); Mean Corpuscular HGB Conc 35.3 % (30-36); Mean Corpuscular Hemoglobin 30.6 PG (26-34); Mean Corpuscular Volume 86.7 fL (80-100); Monocytes Absolute Auto 1200 /uL (0-900); Monocytes Percent Auto 12.9 % (3-14); Neutrophils Absolute Auto 6500 /uL (1500-7000); Neutrophils Percent Auto 71.2 % (50-75); Platelet Count 230 X10^3/uL (150-400); Red Blood Cell Count 3.48 X10^6/uL (4.5-5.9); Red Cell Distribution Width 13.9 % (11.6-14.8); White Blood Cell Count 9.1 X10^3/uL (4.5-11.0)
[2023-03-16 05:25] LABS: Blood Urea Nitrogen 15 mg/dL (9-20); Calcium 7.6 mg/dL (8.4-10.2); Carbon Dioxide 23 mmol/L (22-32); Chloride 104 mmol/L (98-107); Estimated Glomerular Filt Rate > 60 mL/min (>60); Glucose 134 mg/dL (70-100); HEMOLYSIS < 15 (0-50); Potassium 3.6 mmol/L (3.4-5.1); Sodium 134 mmol/L (137-145)
--- NOTE | 2023-03-16 08:33 | PM.PNPO.1 ---
Subjective Subjective Date Patient Seen: 03/16/23 Time Patient Seen: 08:34 Interval history: Passing flatus. Pain is well controlled. No acute overnight events. Afebrile. Exam Vital Signs (past 8 hours): - 03/16/23 02:00 03/16/23 04:00 03/16/23 06:00 Temperature 99.1 F Pulse Rate 84 Respiratory Rate 18 Blood Pressure 101/53 L Pulse Oximetry 92 98 96 Oxygen Delivery Method Room Air Room Air Oxygen Delivery Method Room Air Oxygen Flow Rate 0 Narrative Exam Narrative: General adult man alert oriented no acute distress Abdomen soft appropriately tender to palpation. Midline dressing clean dry intact. Suarez with hematuria Objective Labs 03/16/23 04:40 03/16/23 04:40 Labs: Laboratory Results - last 24 hr 03/16/23 03/16/23 04:40 04:40 WBC 9.1 RBC 3.48 L Hgb 10.6 L Hct 30.2 L MCV 86.7 MCH 30.6 MCHC 35.3 RDW 13.9 Plt Count 230 Neut % (Auto) 71.2 Lymph % (Auto) 15.7 L [place] % (Auto) 12.9 Eos % (Auto) 0.0 L Baso % (Auto) 0.2 Neut # (Auto) 6500 Lymph # (Auto) 1400 [place] # (Auto) 1200 H Eos # (Auto) 0 Baso # (Auto) 0 Sodium 134 L Potassium 3.6 Chloride 104 Carbon Dioxide 23 BUN 15 Creatinine 1.25 Estimated GFR > 60 BUN/Creatinine Ratio 12.0 Glucose 134 H Calcium 7.6 L PFSH Medical History (Updated 03/13/23 @ 10:11 by Belkys Mckeon RN) Arthritis Asthma Broken arm Colovesical fistula Diverticula of intestine Diverticulitis Dysphagia GERD (gastroesophageal reflux disease) Juvenile arthritis Numbness and tingling Sciatica Surgical History (Updated 03/13/23 @ 10:11 by Belkys Mckeon RN) History of surgery Hx of adenoidectomy S/P epidural steroid injection Status post appendectomy Family History Father Heart disease Social History marital status: number of children: 2 household members: spouse and children occupational status: employed Smoking Status: Never smoker alcohol intake: current Type(s) of exercise: swimming frequency: 3-4 times per week Assessment & Plan Post-op Postoperative Procedures: Procedures Operation Date: 03/15/23 07:45 Actual Procedure Side Surgeon s Cystoscopy w/ Placement of Bilateral Illuminated Ureteral Stents with right Ureter Repair and Right Ureteral stent Placement Bilateral Kassandra Nelson MD p Laparoscopic converted to Open Sigmoid Colectomy Johnny Self MD Postoperative status narrative: 52-year-old man postoperative day 1 status post laparoscopic assisted sigmoid colectomy. He is recovering appropriately. Has return of bowel function. -advanced to regular diet -convert Suarez to leg bag. We will be discharging home with catheter in place for approximately 7-10 days for treatment of colovesicular fistula. -SCDs and Lovenox -24 hours of Zosyn -out of bed PT OT -potential discharge tomorrow Quality VTE Deep Vein Thrombosis/Pulmonary Embolism Present on Admission: No
[2023-03-16] MEDS: ENOXAPARIN 40 MG/0.4 ML SYRINGE SUBCUT (08:42)
--- NOTE | 2023-03-16 10:46 | P.PN_ITS ---
Subjective Subjective Date Patient Seen: 03/16/23 Time Patient Seen: 10:47 Interval history: The patient is postoperative day 1 status post takedown of colovesical f istula/resection, and repair of iatrogenic right ureteral injury. I spoke at length with the patient today via telephone and explained intraoperative findings, events, and recommended follow-up. His questions and clarifications were addressed and answered to his satisfaction during the telephonic encounter. Exam Vital Signs (past 8 hours): - 03/16/23 04:00 03/16/23 06:00 03/16/23 08:42 Temperature 99.1 F Pulse Rate 84 Respiratory Rate 18 Blood Pressure 101/53 L Pulse Oximetry 98 96 96 Oxygen Delivery Method Room Air Room Air Oxygen Flow Rate 03/16/23 08:00 Temperature 98.1 F Pulse Rate 77 Respiratory Rate 16 Blood Pressure 106/56 L Pulse Oximetry 97 Oxygen Delivery Method Oxygen Flow Rate 0 Oxygen Delivery Method Room Air Oxygen Flow Rate 0 Narrative Exam Narrative: Not performed. Objective Labs 03/16/23 04:40 03/16/23 04:40 Labs: Laboratory Results - last 24 hr 03/16/23 03/16/23 04:40 04:40 WBC 9.1 RBC 3.48 L Hgb 10.6 L Hct 30.2 L MCV 86.7 MCH 30.6 MCHC 35.3 RDW 13.9 Plt Count 230 Neut % (Auto) 71.2 Lymph % (Auto) 15.7 L [place] % (Auto) 12.9 Eos % (Auto) 0.0 L Baso % (Auto) 0.2 Neut # (Auto) 6500 Lymph # (Auto) 1400 [place] # (Auto) 1200 H Eos # (Auto) 0 Baso # (Auto) 0 Sodium 134 L Potassium 3.6 Chloride 104 Carbon Dioxide 23 BUN 15 Creatinine 1.25 Estimated GFR > 60 BUN/Creatinine Ratio 12.0 Glucose 134 H Calcium 7.6 L PFSH Medical History (Updated 03/16/23 @ 10:48 by Kassandra Nelson MD) Arthritis Asthma Broken arm Colovesical fistula Diverticula of intestine Diverticulitis Dysphagia GERD (gastroesophageal reflux disease) Intraoperative ureteral injury Juvenile arthritis Numbness and tingling Sciatica Surgical History (Updated 03/13/23 @ 10:11 by Belkys Mckeon RN) History of surgery Hx of adenoidectomy S/P epidural steroid injection Status post appendectomy Family History Father Heart disease Social History marital status: number of children: 2 household members: spouse and children occupational status: employed Smoking Status: Never smoker alcohol intake: current Type(s) of exercise: swimming frequency: 3-4 times per week Assessment & Plan Assessment and plan (1) Intraoperative ureteral injury: Status: Acute Plan 1. Return to [place] [facility] in approximately [address] of abdomen and pelvis with contrast including delayed images. 2. Suarez catheter indwelling at discharge. Dr. Self 2 determine discontinuation of Suarez catheter per his assessment of intraoperative findings and present/absence of fistulous tract. Quality VTE Deep Vein Thrombosis/Pulmonary Embolism Present on Admission: No
--- NOTE | 2023-03-16 11:40 | OT.IP.EVAL ---
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) Other intraoperative complications of genitourinary system (03/15/23) Surgery Performed Operation Date: 03/15/23 07:45 Actual Procedures s Cystoscopy w/ Placement of Bilateral Illuminated Ureteral Stents with right Ureter Repair and Right Ureteral stent Placement(Bilateral) - Kassandra Nelson MD p Laparoscopic converted to Open Sigmoid Colectomy - Johnny Self MD Past Medical History (Last Updated 03/16/23 @ 10:48 by Kassandra Nelson MD) Arthritis Asthma Broken arm Colovesical fistula Diverticula of intestine Diverticulitis Dysphagia GERD (gastroesophageal reflux disease) Intraoperative ureteral injury Juvenile arthritis Numbness and tingling Sciatica Surgical History (Last Updated 03/13/23 @ 10:11 by Belkys Mckeon RN) History of surgery Hx of adenoidectomy S/P epidural steroid injection Status post appendectomy Occupational Therapy Inpatient Evaluation/Re-Eval M1 PT/OT-IP Prior Functional Status Start: 03/16/23 13:00 Freq: NEEDED Status: Active Protocol: Document 03/16/23 13:01 [facility] (Rec: 03/16/23 13:12 [facility] [id number]) Medical Review Prior Functional Status Medical History Reviewed Yes Communication WFL Mobility and Gait Indep Activities of Daily Living and IADL's Indep Social History Household Members spouse,children Living Arrangements House Number of Floors (Floors) Two Floors Number of Stairs To Enter/Railing? 3 with B rails M2 OT-IP Current Condition Start: 03/16/23 13:00 Freq: Status: Active Protocol: Document 03/16/23 13:01 [facility] (Rec: 03/16/23 13:12 [facility] [id number]) Occupational Therapy Current Condition Current Condition Evaluation Date 03/16/23 Treatment Diagnosis S/p lap assisted sigmoid colectomy, COVID+ Diagnosis Onset Date 03/15/23 Post Operative Precautions Abdominal Surgery Precautions Log Roll,Lifting Restrictions, Gait Belt above Incisional Area M3 OT- IP Subjective and Pain Start: 03/16/23 13:00 Freq: Status: Active Protocol: Document 03/16/23 13:01 [facility] (Rec: 03/16/23 13:12 [facility] [id number]) OT- Subjective Occupational Therapy Visit Type Type Initial Evaluation Visit Start Time 11:40 Visit Stop Time 12:13 Total Visit Minutes 33 Occupational Therapy Visit Comments Patient Comments Pt agreed to get up and pt's in the room. Patient/Caregiver Goals To go home. OT Pain Assessment Pain When Pain Assessed During Mobility Pain Present Pain Present Pain Reported M4 OT- IP ADL's Start: 03/16/23 13:00 Freq: Status: Active Protocol: Document 03/16/23 13:01 [facility] (Rec: 03/16/23 13:12 [facility] [id number]) OT ADL-Grooming Comments OT Grooming Comments Not performed. OT ADL-Oral Care Comments Oral Care Comments Not performed. OT ADL-Dressing Comments OT Dressing Comments Pt not wanting to do and educated that LB dressing equipment if needed- pt states to just wear slip on shoes. OT ADL-Toileting Comments OT Toileting Comments Pt not having to go at this time. OT ADL-Bathing Comments OT Bathing Comments Suggested pt may benefit from a shower chair but pt states shower is very small and to most likely lean on the shower wall or sponge off initially. M5 OT- IP IADL's Start: 03/16/23 13:00 Freq: Status: Active Protocol: Document 03/16/23 13:01 [facility] (Rec: 03/16/23 13:12 [facility] [id number]) OT-Instrumental Activities of Daily Living Home Safety Awareness Awareness of Need for Assistance at Home Good Awareness M6 OT- IP Functional Cognition Start: 03/16/23 13:00 Freq: Status: Active Protocol: Document 03/16/23 13:01 [facility] (Rec: 03/16/23 13:12 [facility] [id number]) Cognitive Factors Limiting Selfcare Function Cognitive Ability Level of Alertness Alert Patient Orientation Name,Place,Situation Attention Span Ability Capable of Focused Attention, Capable of Sustained Attention Ability to Follow Commands Able to Follow Multi-Step Commands Cognitive Comments Cognitive Assessment Comments Intact and able to follow abdominal precautions. OT- Vision and Hearing OT- Hearing Assessment OT- Hearing Assessment WFL M7 OT- IP Mobility and Balance Start: 03/16/23 13:00 Freq: Status: Active Protocol: Document 03/16/23 13:01 [facility] (Rec: 03/16/23 13:12 [facility] [id number]) OT- Bed Mobility Assessment Supine to Sit Supine to Sit Assist Standby Assistance Sit to Supine Sit to Supine Assist Standby Assistance OT-Transfer Assessment Sit to and From Stand Sit to and from Stand Standby Assistance Transfers Transfer Ability Standby Assistance Technique Transfer Destination Bed,Chair Transfer Technique Stand Step Pivot Devices Transfer Assistive Devices Gait Belt,Front Wheeled Walker Comments Mobility Comments Pt SBA with FWW and then able to get around without FWW. Pt feeling SOB, but otherwise doing well. Able to initial educate pt on log rolling for his abdominal precautions. OT- Balance Assessment Sitting Balance and Reactions Static Sitting Balance Ability Normal Standing Balance and Reactions Static Standing Balance Ability Good Dynamic Standing Balance Ability Fair M9 OT- IP Assessment and Plan Start: 03/16/23 13:00 Freq: Status: Active Protocol: Document 03/16/23 13:01 [facility] (Rec: 03/16/23 13:12 [facility] [id number]) OT Summary Assessment and Plan Potential Rehabilitation Potential Excellent Analytic Complexity at Evaluation Moderate Summary OT Impairments Pain,Balance,Functional Mobility,Dressing,Toileting, Bathing,Toilet Transfers, Shower Transfers,Activity Tolerance Progress Towards Goals Progressing Toward Goals Assessment Summary Pt MOD complexity and main barriers are steps, decreased activity tolerance and that his and sister to be able to assist with his needs when he is able to go home when medically stable. At this time pt and OT agreed that pt has no OT needs and that pt to still work with PT for mobility needs . Therefore discharge pt for OT services. Discharge Recommendations OT Discharge Recommendations Home with Assistance Transportation Needs at Discharge Private Vehicle
--- NOTE | 2023-03-16 12:28 | PT.IIE ---
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) Other intraoperative complications of genitourinary system (03/15/23) Surgery Performed Operation Date: 03/15/23 07:45 Actual Procedures s Cystoscopy w/ Placement of Bilateral Illuminated Ureteral Stents with right Ureter Repair and Right Ureteral stent Placement(Bilateral) - Kassandra Nelson MD p Laparoscopic converted to Open Sigmoid Colectomy - oJhnny Self MD Surgical History (Last Updated 03/13/23 @ 10:11 by Belkys Mckeon RN) History of surgery Hx of adenoidectomy S/P epidural steroid injection Status post appendectomy Medical History (Last Updated 03/16/23 @ 10:48 by Kassandra Nelson MD) Arthritis Asthma Broken arm Colovesical fistula Diverticula of intestine Diverticulitis Dysphagia GERD (gastroesophageal reflux disease) Intraoperative ureteral injury Juvenile arthritis Numbness and tingling Sciatica Physical Therapy Inpatient Evaluation/Re-Eval M1 PT/OT-IP Prior Functional Status Start: 03/16/23 12:16 Freq: NEEDED Status: Active Protocol: Document 03/16/23 12:17 [facility] (Rec: 03/16/23 12:27 [facility] [id number]) Medical Review Prior Functional Status Medical History Reviewed Yes Communication WFL Mobility and Gait Indep Activities of Daily Living and IADL's Indep Social History Household Members spouse,children Living Arrangements House Number of Floors (Floors) Two Floors Number of Stairs To Enter/Railing? 3 with B rails M2 PT-IP Current Condition Start: 03/16/23 12:16 Freq: NEEDED Status: Active Protocol: Document 03/16/23 12:17 [facility] (Rec: 03/16/23 12:27 [facility] [id number]) Physical Therapy Current Condition Current Condition Evaluation Date 03/16/23 Treatment Diagnosis s/p lap assisted sigmoid colectomy, COVID+ Onset Date 03/15/23 M3 PT-IP Subjective Start: 03/16/23 12:16 Freq: NEEDED Status: Active Protocol: Document 03/16/23 12:17 [facility] (Rec: 03/16/23 12:27 [facility] [id number]) Subjective Physical Therapy Visit Type Type Initial Evaluation Visit Start Time 11:47 Visit Stop Time 12:08 Total Visit Minutes 21 Physical Therapy Visit Comments Patient Comments Patient alert in bed, present. Patient reported he hasn't been out of bed yet; agreeable to work with therapy . Reported some soreness in abdomen. M4 PT-IP Mobility and Gait Start: 03/16/23 12:16 Freq: NEEDED Status: Active Protocol: Document 03/16/23 12:17 [facility] (Rec: 03/16/23 12:27 [facility] [id number]) PT-Bed Mobility Assessment Rolling Type of Rolling Roll to Right Level of Assist Independent,Standby Assistance Supine to Sit Supine to Sit Standby Assistance Scooting Scooting to Edge of Bed Independent PT-Transfer Assessment Sit to and From Stand Sit to and from Stand Standby Assistance,Use of Upper Extremities Equipment Transfer Assistive Device Gait Belt,Front Wheeled Walker Transfers Transfer Destination Chair Transfer Technique Stand Step Pivot Transfer Ability Level of Assist Standby Assistance,Use of Upper Extremities Comments Mobility Comments Cues for hand placement for safety with FWW. Gait Assessment Gait Gait Assistance Required: Standby Assistance Distance (Feet) 40 Assistive Devices Assistive Device None,Gait Belt,Front Wheeled Walker Comments Gait Comments Initially ambulated with FWW, the progress to no AD. Ambulated with decreased speed and dayana. C/o mild shortness of breath with activity. PT-Balance Assessment Sitting Balance and Reactions Static Sitting Balance Ability Good Dynamic Sitting Balance Ability Good Standing Balance and Reactions Static Standing Balance Ability Good Dynamic Standing Balance Ability Good Device Used none M5 PT-IP Objective Assessments Start: 03/16/23 12:16 Freq: NEEDED Status: Active Protocol: Document 03/16/23 12:17 [facility] (Rec: 03/16/23 12:27 [facility] [id number]) Orientation Orientation/Cognition Level of Alertness Alert Orientation Name,Age,Birthday,Month,Date, Year,Day of Week,Place, Situation Language Function Ability No Deficits Noted Safety Awareness Understands Safety Issues Memory Description No Deficits Noted Gross Range of Motion Upper Extremity ROM Assessment Within Functional Limits Lower Extremity ROM Assessment Within Functional Limits Strength Upper Extremity Strength Assessment Within Functional Limits Lower Extremity Strength Assessment Within Functional Limits Comments Strength Comments Decreased abdominal strength post-op Coordination Assessment Gross Coordination Gross Coordination WNL Sensation Assessment Sensation Gross Sensation WNL Muscle Tone Muscle Tone WNL Yes M6 PT-IP Treatment Start: 03/16/23 12:16 Freq: NEEDED Status: Active Protocol: Document 03/16/23 12:17 [facility] (Rec: 03/16/23 12:27 [facility] [id number]) Physical Therapy Treatment Education Education Provided Safety M7 PT-IP Assessment and Plan Start: 03/16/23 12:16 Freq: NEEDED Status: Active Protocol: Document 03/16/23 12:17 [facility] (Rec: 03/16/23 12:27 [facility] [id number]) PT Summary Assessment and Plan Potential Rehabilitation Potential Excellent Status of Condition at Evaluation Stable Summary Impairments Pain,Bed Mobility,Transfers, Gait,Activity Tolerance Assessment Summary Patient is a 52 year old male who presents with impaired functional mobility 2/2 above problems. Patient demonstrated decreased activity tolerance contributing to decreased ambulation capacity. He demonstrated sufficient balance to mobilize without AD . He required cues for sequencing for log rolling to get in/out of bed to reduce strain on abdomen. He will benefit from further skilled therapy during hospitalization to progress mobility and activity tolerance to be able to d/c home safely. Goals Bed Mobility Goal Independent Transfer Goal Independent Gait Goal Independent Gait Distance 100 Other Goals Patient will be able to ascend /descend 14 stairs with single rail indep. Days to Meet Goals 5 Frequency of Treatment Frequency Of Treatment Once a Day Treatment Plan Physical Therapy Treatment Plan Bed Mobility Training,Transfer Training,Gait Training, Therapeutic Exercise,Discharge Planning Other Recommendations and Next Treatment Increase OOB activity, Focus strength, gait. Review log rolling for in/out of bed. Precautions Abdominal Surgery Precautions Log Roll,Lifting Restrictions, Gait Belt above Incisional Area Recommendations To Nursing Amount of Assist Needed Standby Assistance Discharge Recommendations PT Discharge Recommendations Home Transportation Needs at Discharge Private Vehicle
[2023-03-16] MEDS: OXYCODONE IR 5 MG TABLET PO (13:55)
--- NOTE | 2023-03-16 15:15 | CM.DANOTE ---
Discharge Planning/Care Management CM Discharge Assessment Start: 03/16/23 15:08 Freq: Status: Active Protocol: Document 03/16/23 15:08 [facility] (Rec: 03/16/23 15:15 [facility] [id number]) Discharge Planning Assessment Assigned Certified Prosthetist Vice President KIKI Sandoval DPOA/Assigned Designee Name Yenny Robertson, spouse Contact Information [phone], Advance Directives? No History Provided By Patient,Medical Record Prior Living Arrangements House Household Members spouse,children Type of transporation used prior to Drives own vehicle admit Independent with ADL's Yes Is patient alert and oriented? Yes Patient/Family Preference OP PT Therapy Barriers to Discharge No Comment 52 yo M resident guillermo Gibson. POD1 from Laparoscopic converted to open sigmoid colectomy Placement of ureteral stents, Repair of iatrogenic right ureter laceration. Patient found to be COVID+ but asymptomatic, patient indp at baseline, patient had planned to return home w/family to assist and therapy has cleared patient for this plan No needs from this CM team identified, following closely in case needs arise [facility] Discharge Plan Home Transportation Arrangement Family Referrals Initiated None needed
[2023-03-16] MEDS: PANTOPRAZOLE DR 40 MG TABLET PO (20:37)
[2023-03-17] VITALS: BP 110/60; PULSE 80; RESP 18; TEMP 37.4; O2SAT 97
[2023-03-17 01:00] VITALS: O2SAT 97
[2023-03-17] MEDS: IBUPROFEN 600 MG TABLET PO ×2 (02:22→09:50)
[2023-03-17] MEDS: ACETAMINOPHEN 325 MG TABLET 650 MG PO ×2 (02:23→09:50)
[2023-03-17] MEDS: PIPERACILLIN/TAZO 3.375 GM in SODIUM CHLORIDE 0.9% 100 ML IV (03:26)
[2023-03-17 04:00] VITALS: BP 100/60; PULSE 73; RESP 19; TEMP 37.3; O2SAT 97
[2023-03-17 04:32] LABS: Add Manual Diff / Slide Review NO; Basophils Absolute Auto 0 /uL (0-100); Basophils Percent Auto 0.6 % (0-2); Eosinophils Absolute Auto 300 /uL (0-450); Eosinophils Percent Auto 3.7 % (2-4); Hematocrit 25.9 % (41-53); Hemoglobin 9.1 g/dL (13.5-17.5); Lymphocytes Absolute Auto 1100 /uL (1100-4500); Lymphocytes Percent Auto 16.2 % (25-40); Mean Corpuscular HGB Conc 35.2 % (30-36); Mean Corpuscular Hemoglobin 30.9 PG (26-34); Mean Corpuscular Volume 87.7 fL (80-100); Monocytes Absolute Auto 700 /uL (0-900); Monocytes Percent Auto 10.2 % (3-14); Neutrophils Absolute Auto 4900 /uL (1500-7000); Neutrophils Percent Auto 69.3 % (50-75); Platelet Count 164 X10^3/uL (150-400); Red Blood Cell Count 2.96 X10^6/uL (4.5-5.9); Red Cell Distribution Width 13.4 % (11.6-14.8)
[2023-03-17 04:40] LABS: BUN Creatinine Ratio 11.6 (6-22); Blood Urea Nitrogen 11 mg/dL (9-20); Calcium 7.7 mg/dL (8.4-10.2); Carbon Dioxide 26 mmol/L (22-32); Chloride 107 mmol/L (98-107); Estimated Glomerular Filt Rate > 60 mL/min (>60); Glucose 104 mg/dL (70-100); HEMOLYSIS < 15 (0-50); Potassium 3.5 mmol/L (3.4-5.1); Sodium 135 mmol/L (137-145)
[2023-03-17 05:00] VITALS: O2SAT 97
[2023-03-17 07:55] VITALS: O2SAT 97
[2023-03-17 08:26] VITALS: BP 102/66; PULSE 78; RESP 16; TEMP 37.1; O2SAT 99
[2023-03-17] MEDS: ENOXAPARIN 40 MG/0.4 ML SYRINGE SUBCUT (09:50)
--- NOTE | 2023-03-17 16:23 | PC.NURSE ---
Discharge: Pt feels ready to d/c to home. MD here this am and gave pt wound care instructions and discharge instructions. Pt has recieved leg bag teaching and knows how to change from leg bag to lg drainage bag and then back again. If he sees increased blood in the villarreal he needs to rest and consume fluids and urine should clear, if not he is to make MD aware. Discussed wound care, leave aquacel in place until seen by MD. Reviewed diet. Reviewed d/c packet, questions answered. Spouse here at time of teaching. Tolerates diet w/out problems. Po meds have been effective for pain. Rx has been esent. Pt d/c to home via auto w/spouse.
--- NOTE | 2023-03-21 08:13 | PM.DS.1 ---
History of Present Illness History of Present Illness Date Patient Seen: 03/15/23 Time Patient Seen: 08:14 Chief complaint: INPT Narrative: 52-year-old man history of recurrent and complicated diverticulitis with colovesicular fistula admitted to the hospital following elective sigmoid colectomy. Discharge Providers Provider Date of admission: 03/15/23 06:21 Discharge Date: 02/17/23 Primary care physician: Sukhjinder Trevizo MD Consults: 03/15/23 15:01 Consult to Occupational Therapy Evaluate & Treat Comment: Physician Instructions: Evaluate and treat Consult to Physical Therapy Evaluate & Treat Comment: Physician Instructions: Evaluate and Treat Discharge provider: Johnny Self MD Summary Hospital Course Discharge Diagnosis: Colovesicular fistula Iatrogenic partial right ureter injury Hospital Course: Patient underwent a laparoscopic-assisted sigmoid colectomy March 15 2023. Operation was significant for a partial laceration of the right ureter. The injury was identified immediately after occurring and was repaired by urology over a stent. His hospital course was otherwise unremarkable. He had return of bowel function, tolerated a diet, was ambulatory and pain was well controlled with PO meds at discharge. He was discharged home with a villarreal catheter for 7 days to be removed after CT cystogram demonstrates no remaining colovesicular fistula. Exam Vital Signs (past 8 hours): Oxygen Delivery Method Room Air Oxygen Flow Rate 0 Narrative Exam Narrative: General adult man alert oriented no acute distress Chest nonlabored respiration Abdomen soft appropriately tender to palpation. Midline dressing is clean dry intact. Extremities warm well perfused Objective Labs 03/17/23 04:05 03/17/23 04:05 [facility] Medical History (Updated 03/16/23 @ 10:48 by Kassandra Nelson MD) Arthritis Asthma Broken arm Colovesical fistula Diverticula of intestine Diverticulitis Dysphagia GERD (gastroesophageal reflux disease) Intraoperative ureteral injury Juvenile arthritis Numbness and tingling Sciatica Surgical History (Updated 03/13/23 @ 10:11 by Belkys Mckeon RN) History of surgery Hx of adenoidectomy S/P epidural steroid injection Status post appendectomy Family History Father Heart disease Social History marital status: number of children: 2 household members: spouse and children occupational status: employed Smoking Status: Never smoker alcohol intake: current Type(s) of exercise: swimming frequency: 3-4 times per week Discharge Plan Discharge Plan Patient Disposition: Home Provider Discharge Comment: -Okay to shower with dressing in place -Do not submerge wounds in water until seen in follow-up. -No lifting >20 lbs x 4 weeks. -Walking only for exercise for 4 weeks. -No driving while taking narcotics. -surgical office will contact you to arrange for follow-up appointment after completion of CT cystogram. Nursing Discharge Comment: See doctor Leslie in 6 weeks. You will need to make an appointment. Dr. Self will decide when villarreal comes out. His office will call you with appointment. Discharge orders & Medications Prescriptions: New ibuprofen 200 mg tablet 400 mg PO Q6H Qty: 60 0RF oxycodone 5 mg tablet 5 mg PO Q6H PRN (Reason: pain) Qty: 20 0RF acetaminophen [Tylenol] 325 mg capsule 650 mg PO QID PRN (Reason: pain) Qty: 60 0RF Continued pantoprazole 40 MG tablet,delayed release (DR/EC) 40 mg PO QDAY Qty: 30 amoxicillin-pot clavulanate 250-125 mg tablet 1 tab PO TID Qty: 14 0RF Discontinued neomycin 500 mg tablet 1 g PO TID Qty: 6 0RF Rx Instructions: administer at 1 PM, 2 PM, and 10 PM the day prior to surgery metronidazole 500 mg tablet 500 mg PO TID Qty: 3 0RF Rx Instructions: administer at 1 PM, 2 PM, and 10 PM the day prior to surgery Follow up/Referrals: Johnny Self MD [Physician] - Diet/Activity/Treatments Diet: Regular Skin/Wound/Dressing Care Report to your healthcare provider any signs of infection, such as:: chills, fever, increased pain, unusual drainage and unusual redness Visit Report/Discharge Packet Instructions: How to Care for Your Villarreal Catheter -- Male, DI for Cystoscopy, DI for Colectomy, DI for Diverticulitis, DI for Prescription Opioid Use, Oxycodone, DI for Ureteral Stent Placement, How to Care for Someone with COVID-19, COVID-19: Can I Get It Again?, [facility]: Wound Care Stand Alone Forms: Patient Portal/API, Stroke Signs & Symptoms Discharge Data Primary Care Provider: Sukhjinder Trevizo Discharges patient from system. Discharge Date/Time: 03/17/23 13:40 Quality VTE Deep Vein Thrombosis/Pulmonary Embolism Present on Admission: No
== END 2023-03-17 13:40 | disposition home or self-care (01) | DRG 660 ==
PROVIDERS: Specialist; Admitting Provider Surgery; PCP Family Medicine; Referring Provider Surgery; Visit Provider Surgery
PROC: 0T788DZ Dilation of Bilateral Ureters with Intraluminal Device, Via Natural or Artificial Opening Endoscopic (ICD-10-PCS; principal; 2023-03-15 07:45)
PROC: 0DTE0ZZ Resection of Large Intestine, Open Approach (ICD-10-PCS; 2023-03-15 07:45)
DX: N32.1 Vesicointestinal fistula (principal); N39.0 Urinary tract infection, site not specified; S37.13XA Laceration of ureter, initial encounter; Y83.8 Other surgical procedures as the cause of abnormal reaction of the patient, or of later complication, without mention of misadventure at the time of the procedure; K21.9 Gastro-esophageal reflux disease without esophagitis; Z20.822 Contact with and (suspected) exposure to COVID-19
CPT/HCPCS: 36415; 44204; 52332; 76000; 80048; 82962; 85025; 87635; 97161; 97166; C9803; C9290; J0330; J1100; J1170; J1650; J1885; J2250; J2405; J2543; J2704; J3010; Q9968

== ENCOUNTER → 2023-03-23 09:53 | Outpatient (CLI) | payer BC, SELFPAY ==
[2023-03-15 16:14] VITALS: BMI 26.5
--- NOTE | 2023-03-23 09:54 | DI.CT.S_ITS ---
PROCEDURE: CT CYSTOGRAM INDICATIONS: Hx of colovesicular fistula. Now 1 wk sp colectomy. TECHNIQUE: Both before and after gravity instillation of 10% Isovue contrast solution into the bladder through a Suarez catheter, 5 mm axial images acquired from the bladder dome to the symphysis. 5 mm thick coronal and sagittal reformats were acquired. For radiation dose reduction, the following was used: automated exposure control, adjustment of mA and/or kV according to patient size. COMPARISON: None. FINDINGS: CT 01/28/2019, 02/08/2023. Image quality: Excellent. Genitourinary: Bladder wall thickness is normal. No contrast extravasation. Distal portions of both ureters are normal in caliber. No evidence colovesicular fistula. Suarez catheter within the urinary bladder. The bladder contains gas, presumably iatrogenic. Peritoneum and bowel: Prior partial colectomy, surgical anastomosis in the pelvis. There is trace fluid in gas within the presacral space. Nodes and vessels: No iliac, pelvic, or inguinal adenopathy by size criteria. Iliac vessels are normal in size. Bones: No suspicious bony lesions. Miscellaneous: No inguinal hernias. Subcutaneous gas along the anterior abdominal wall. Laparotomy defect. IMPRESSION: Interval partial colectomy. No colovesicular fistula. Dictated by: Rainer Estrada M.D. on 03/23/2023 at 11:50 Approved by: Rainer Estrada M.D. on 03/23/2023 at 11:52
== END ==
PROVIDERS: PCP Family Medicine; Referring Provider Surgery; Visit Provider Surgery
DX: N32.1 Vesicointestinal fistula (principal); Z90.49 Acquired absence of other specified parts of digestive tract
CPT/HCPCS: 72194

== ENCOUNTER → 2023-04-10 10:22 | Outpatient (CLI) | payer BC, SELFPAY ==
[2023-03-15 16:14] VITALS: BMI 26.5
[2023-04-10 11:20] LABS: Influenza A - CEPHEID Flu A NEGATIVE (NEGATIVE); Influenza B - CEPHEID Flu B NEGATIVE (NEGATIVE); Respiratory Syncytial Virus Negative (Negative)
[2023-04-10 11:22] LABS: COVID-19 CEPHEID 4-PLEX PCR Negative (Negative)
== END ==
PROVIDERS: PCP Family Medicine; Visit Provider Physician Assistant
DX: R50.9 Fever, unspecified (principal)
CPT/HCPCS: 0241U; 87086

== ENCOUNTER → 2023-04-10 11:01 | Outpatient (CLI) | payer BC, SELFPAY ==
[2023-03-15 16:14] VITALS: BMI 26.5
[2023-04-10 11:24] LABS: Add Manual Diff / Slide Review NO; Basophils Absolute Auto 100 /uL (0-100); Basophils Percent Auto 0.5 % (0-2); Eosinophils Absolute Auto 100 /uL (0-450); Eosinophils Percent Auto 0.5 % (2-4); Hematocrit 38.3 % (41-53); Hemoglobin 13.2 g/dL (13.5-17.5); Lymphocytes Absolute Auto 600 /uL (1100-4500); Mean Corpuscular HGB Conc 34.5 % (30-36); Mean Corpuscular Hemoglobin 30.6 PG (26-34); Mean Corpuscular Volume 88.4 fL (80-100); Monocytes Absolute Auto 1100 /uL (0-900); Monocytes Percent Auto 7.6 % (3-14); Neutrophils Absolute Auto 13000 /uL (1500-7000); Neutrophils Percent Auto 87.4 % (50-75); Platelet Count 247 X10^3/uL (150-400); Red Blood Cell Count 4.34 X10^6/uL (4.5-5.9); Red Cell Distribution Width 13.9 % (11.6-14.8); White Blood Cell Count 14.8 X10^3/uL (4.5-11.0)
[2023-04-10 11:34] LABS: D Dimer 478 ng/ml (<500)
[2023-04-10 11:38] LABS: BUN Creatinine Ratio 17.2 (6-22); Blood Urea Nitrogen 15 mg/dL (9-20); Calcium 8.9 mg/dL (8.4-10.2); Carbon Dioxide 24 mmol/L (22-32); Chloride 103 mmol/L (98-107); Estimated Glomerular Filt Rate > 60 mL/min (>60); Glucose 124 mg/dL (70-100); HEMOLYSIS < 15 (0-50); Potassium 3.9 mmol/L (3.4-5.1); Sodium 134 mmol/L (137-145)
== END ==
PROVIDERS: PCP Family Medicine; Referring Provider Physician Assistant; Visit Provider Physician Assistant
DX: R50.9 Fever, unspecified (principal)
CPT/HCPCS: 0241U; 36415; 80048; 85025; 85379; 87086

== ENCOUNTER → 2023-04-14 15:48 | Outpatient (CLI) | payer BC, SELFPAY ==
[2023-03-15 16:14] VITALS: BMI 26.5
--- NOTE | 2023-04-14 | DI.CT.S_ITS ---
PROCEDURE: CT IVP A/P W/WO INDICATIONS: Other intraoperative complications of genitourinary system TECHNIQUE: Optional 5 mm thick noncontrast images acquired from the diaphragm to the symphysis pubis. After the administration of intravenous contrast, 5 mm thick images acquired from the diaphragm to the symphysis pubis after a 10-minute delay. 2 mm thick coronal and sagittal reformats were then performed of the kidneys and ureters. For radiation dose reduction, the following was used: automated exposure control, adjustment of mA and/or kV according to patient size. COMPARISON: [facility], CT, CT CYSTOGRAM, 03/23/2023, 10:02. [facility], CT, CT KIDNEY URETER BLADDER (KUB), 02/08/2023, 16:48. FINDINGS: Image quality: Excellent. Lung bases: Lung bases are clear. Heart size is normal. A small hiatal hernia is incidentally noted. Urinary system: A right-sided double-J stent is seen, with the ends in the expected locations. Both kidneys are normal in size, without hydronephrosis or nephrolithiasis on pre-contrast images. No perinephric fat stranding. Areas of poor enhancement can be seen involving the right kidney superiorly. Renal calyces appear normal in morphology when filled with contrast. Opacified portions of both ureters demonstrate normal caliber. Bladder wall thickness is normal. No calcified bladder stones. Other solid organs: Liver is normal in size and enhancement. There is a simple nonenhancing cyst seen inferiorly within the right liver measuring 1 cm, as on series 4, image 91. Gallbladder is collapsed at the time of this study . Biliary system is non dilated. Pancreas enhances normally. Spleen is normal in size and enhancement. No adrenal nodules. Peritoneum and bowel: Bowel loops demonstrate normal wall thickness and caliber. No free air. A sigmoid anastomotic staple line is seen. Nodes and vessels: No retroperitoneal or mesenteric adenopathy by size criteria. Aorta and inferior vena cava are normal in size. Abdominal wall: No ventral hernias. Pelvis: Mild free fluid can be seen within the pelvis. Loculated abscess collection is seen. No suspicious pelvic fluid collection can be seen. No inguinal hernias or adenopathy. Bones: No suspicious bony lesions. No vertebral body compression fractures. Focal L4-L5 degenerative change is seen. Mac milder IMPRESSION: No findings urine extravasation can be seen. There is a mild amount of poorly defined free fluid seen within the pelvis. Negative for abscess. There is a right-sided double-J stent, with the ends in the expected locations. Areas of poor enhancement can be seen involving the right superior kidney. Please consider pyelonephritis. A sigmoid colon anastomotic staple line can be seen, without a complication. Additional findings: Small hiatal hernia 1 cm simple liver cyst Focal L4-L5 degenerative change Dictated by: Pelon Lira M.D. on 04/14/2023 at 19:45 Approved by: Pelon Lira M.D. on 04/14/2023 at 19:50
== END ==
PROVIDERS: PCP Family Medicine; Referring Provider Specialist; Visit Provider Specialist
DX: K44.9 Diaphragmatic hernia without obstruction or gangrene (principal); K76.89 Other specified diseases of liver
CPT/HCPCS: 74178; Q9967

== ENCOUNTER 2023-04-15 15:12 | Inpatient (IN) | payer BC, SELFPAY ==
[2023-03-15 16:14] VITALS: BMI 26.5
[2023-04-15] VITALS (11 sets, daily range): BP systolic 122–139; BP diastolic 71–79; PULSE 56–73; RESP 16–18; TEMP 36.3–36.8; O2SAT 98–99; BMI 26.2
[2023-04-15 15:47] LABS: Appearance Urine UA CLEAR; Bilirubin Urine UA 1+ (NEGATIVE); Color Urine UA YELLOW; Glucose Urine UA NEGATIVE (Negative); Ketones Urine UA NEGATIVE (NEGATIVE); Leukocyte Esterase Urine UA 1+ (NEGATIVE); Nitrite Urine UA NEGATIVE (Negative); Occult Blood Urine UA 3+ (Negative); Protein Urine UA 3+ (Negative); Specific Gravity Urine UA >=1.030 (1.000-1.035); pH Urine UA 5.5 (4.5-8.0)
[2023-04-15 15:58] LABS: Ictotest Urine Negative (Negative)
[2023-04-15 15:59] LABS: Amorphous Sediment Urine 1+; Bacteria Urine Few (2-10); Culture Indicated Urine Specimen Cultured; RBC Urine 10-30/HPF (0-5/HPF); WBC Urine 5-10/HPF (0-5/HPF)
--- NOTE | 2023-04-15 16:21 | ED.MALEGU ---
HPI - Male Genitourinary General Chief complaint: Urogenital-Male Stated complaint: UTI symptoms Time Seen by Provider: 04/15/23 15:16 Source: patient Mode of arrival: Ambulatory History of Present Illness HPI Narrative: 52-year-old male nonsmoker with history of diverticulitis, chronic UTI and relatively recently repaired colovesicular fistula presents for evaluation of ongoing fevers. He presented initially to the walk-in Clinic having had daily fevers for multiple days and chills. He is had no runny nose, sore throat or cough. He is not dizzy nor weak or lightheaded. Denies any chest pain, shortness of breath or cough. He has some minimal abdominal discomfort on occasion but nothing severe or current. He had been taking nitrofurantoin based on prior urine cultures in last dose is tomorrow. His surgery was performed here about 3 weeks ago. He does still have a ureteral stent in place that is managed by Dr. Nelson and actually had an outpatient CT scan performed yesterday in preparation of having this stent removed Related Data Home Medications Medication Instructions Recorded Confirmed pantoprazole 40 mg tablet,delayed 40 mg PO QDAY #30 tabs 08/22/16 04/07/23 release Previous Rx's Medication Instructions Recorded acetaminophen 325 mg capsule 650 mg PO QID PRN pain #60 caps 03/17/23 (Tylenol) ibuprofen 200 mg tablet 400 mg PO Q6H #60 tabs 03/17/23 nitrofurantoin 100 mg PO Q12H 7 days #14 caps 04/10/23 monohydrate/macrocrystals 100 mg capsule (Macrobid) Allergies Allergy/AdvReac Type Severity Reaction Status Date / Time No Known Drug Allergies Allergy Verified 04/10/23 09:58 Review of Systems Review of Systems Narrative: GENERAL: See HPI HEENT: Denies sinus pain, ear pain, sore throat, difficulty swallowing, dizziness. RESPIRATORY: Denies dyspnea, cough, wheezing, hemoptysis, sputum. CARDIOVASCULAR: Denies chest pain, palpitations, orthopnea, edema, GASTROINTESTINAL: See HPI : Denies dysuria, frequency, incontinence, hematuria, urinary retention. MUSCULOSKELETAL: denies weakness, joint pain, or bony pain SKIN: Denies rash, skin lesions, or other NEUROLOGIC: Denies weakness, headache, numbness, change in speech, confusion, seizures, incoordination. PSYCHIATRIC: No concerning psychosocial issues. 12 point review of systems is negative except for those stated above Patient History Medical History Arthritis Asthma Broken arm Colovesical fistula Diverticula of intestine Diverticulitis Dysphagia GERD (gastroesophageal reflux disease) Intraoperative ureteral injury Juvenile arthritis Numbness and tingling Sciatica Surgical History History of surgery Hx of adenoidectomy S/P epidural steroid injection Status post appendectomy Family History Father Heart disease Social History marital status: number of children: 2 household members: spouse and children occupational status: employed Smoking Status: Never smoker alcohol intake: current Type(s) of exercise: swimming frequency: 3-4 times per week Smoking Status: Never smoker alcohol intake frequency: 0-2 drinks per day Alcohol type: wine Substance Use Type: does not use Exam Narrative Exam Narrative: GENERAL: [52] year old patient appears stated age. Well-developed patient, in mild distress. HEAD: Atraumatic. Normocephalic. EYES: Pupils equal round and reactive. Extraocular motions intact. No scleral icterus. No injection or drainage. ENT: Nose without bleeding, purulent drainage. Throat without erythema, tonsillar hypertrophy or exudate. Airway patent. NECK: Trachea midline. Non tender CARDIOVASCULAR: Regular rate and rhythm without murmurs, gallops, or rubs. RESPIRATORY: Clear to auscultation. Breath sounds equal bilaterally. No wheezes, rales, or rhonchi. GASTROINTESTINAL: Abdomen soft, non-tender, nondistended. Midline lower abdominal incisions clean, dry and intact with appropriate healing EXTREMITIES: No edema or joint tenderness. BACK: Nontender without deformity or crepitance. No flank tenderness. NEURO: AOx3. SKIN: No rash or erythema of visible areas Initial Vital Signs Initial Vital Signs: Vital Signs Temperature 98.2 F 04/15/23 15:14 Pulse Rate 65 04/15/23 15:14 Respiratory Rate 18 04/15/23 15:14 Blood Pressure 125/71 04/15/23 15:14 Pulse Oximetry 98 04/15/23 15:14 Oxygen Delivery Method Room Air 04/15/23 15:14 Course Orders Ordered: ED Orders 04/15/23 15:25 Ictotest Urine Stat Urinalysis and Microscopic Stat Urine Culture Stat 04/15/23 16:22 Chest [XR chest 1V] Stat 04/15/23 16:46 Complete Blood Count AUTO DIFF Stat Comprehensive Metabolic Panel Stat Lactate (Lactic Acid) Stat 04/15/23 17:05 Blood Culture Stat Respiratory Panel (Film Array) Stat Discontinued Medications Ertapenem 1 gm/ Sodium (Chloride) 100 mls @ 200 mls/hr IV NOW ONE Stop: 04/15/23 18:02 Last Admin: 04/15/23 18:52 Dose: 200 mls/hr Consultations Consultation #1: discussed with Dr. Escobedo with General surgery. We reviewed the clinical course and he is happy to be involved in the patient's overall care does recommend discussion with Urology and would prefer admission to medical team Consultation #2: Discussed with Dr. Amado, on-call [facility] urology. We have discussed the clinical course at length. Is strongly support of the plan to admit the patient here on antibiotics, understands that we may not have urologic coverage until Monday and states that is a reasonable duration with this stent in place. Consultation #3: Dr. Marte called, we have discussed this case at length, he is happy to accept the patient on his service and will consult specialist as needed. Vital Signs Vital signs: Vital Signs - 8 hr 04/15/23 15:14 04/15/23 17:32 04/15/23 17:33 Temperature 98.2 F Pulse Rate 65 58 L Respiratory Rate 18 Blood Pressure 125/71 139/75 Pulse Oximetry 98 99 Oxygen Delivery Method Room Air 04/15/23 17:33 04/15/23 17:40 04/15/23 17:40 Temperature Pulse Rate 58 L 56 L Respiratory Rate Blood Pressure 130/78 Pulse Oximetry 99 99 Oxygen Delivery Method 04/15/23 18:00 04/15/23 18:00 04/15/23 18:30 Temperature Pulse Rate 59 L Respiratory Rate Blood Pressure 125/77 122/77 Pulse Oximetry 98 Oxygen Delivery Method 04/15/23 18:30 04/15/23 19:00 Temperature Pulse Rate 57 L 57 L Respiratory Rate Blood Pressure Pulse Oximetry 98 98 Oxygen Delivery Method MDM - Male Genitourinary Lab Data 04/15/23 16:46 04/15/23 16:46 Labs: Lab Results 04/15/23 04/15/23 04/15/23 Range/Units 15:25 16:46 16:46 WBC 4.1 L (4.5-11.0) X10^3/uL RBC 3.55 L (4.5-5.9) X10^6/uL Hgb 10.7 L (13.5-17.5) g/dL Hct 30.7 L (41-53) % MCV 86.7 (80-100) fL MCH 30.2 (26-34) PG MCHC 34.8 (30-36) % RDW 13.7 (11.6-14.8) % Plt Count 194 (150-400) X10^3/uL Neut % (Auto) 42.7 L (50-75) % Lymph % (Auto) 34.3 (25-40) % [place] % (Auto) 13.8 (3-14) % Eos % (Auto) 8.1 H (2-4) % Baso % (Auto) 1.1 (0-2) % Neut # (Auto) 1800 (2986-7291) /uL Lymph # (Auto) 1400 (0348-8003) /uL [place] # (Auto) 600 (0-900) /uL Eos # (Auto) 300 (0-450) /uL Baso # (Auto) 0 (0-100) /uL Sodium 138 (137-145) mmol/L Potassium 3.6 (3.4-5.1) mmol/L Chloride 102 (98-107) mmol/L Carbon Dioxide 30 (22-32) mmol/L BUN 14 (9-20) mg/dL Creatinine 0.82 (0.66-1.25) mg/dL Estimated GFR > 60 (>60) mL/min BUN/Creatinine Ratio 17.1 (6-22) Glucose 108 H (70-100) mg/dL Lactate (0.7-2.1) mmol/L Calcium 8.6 (8.4-10.2) mg/dL Total Bilirubin 0.2 (0.2-1.3) mg/dL AST 38 (17-59) IU/L ALT 64 H (<50) IU/L Alkaline Phosphatase 125 (38-126) U/L Total Protein 6.6 (6.3-8.2) g/dL Albumin 3.6 (3.5-5.0) g/dL Globulin 3.0 (1.7-4.1) g/dL Albumin/Globulin Ratio 1.2 (1.0-2.8) Urine Color Yellow Urine Appearance Clear Urine pH 5.5 (4.5-8.0) Ur Specific [address] >=1.030 H (1.000-1.035) Urine Protein 3+ H (Negative) Urine Glucose (UA) Negative (Negative) g/dL Urine Ketones Negative (NEGATIVE) Urine Occult Blood 3+ H (Negative) Urine Nitrate Negative (Negative) Urine Bilirubin 1+ H (NEGATIVE) Ur Bilirubin Confirm Negative (Negative) Urine Urobilinogen 1.0 (0.2) E.U./dL Ur Leukocyte Esterase 1+ H (NEGATIVE) Urine RBC 10-30/hpf H (0-5/HPF) Urine WBC 5-10/hpf H (0-5/HPF) Amorphous Sediment 1+ Urine Bacteria Few (2-10) H (None) Ur Culture Indicated? Specimen cultured Chlamy pneumoniae PCR (Not Detect) Adenovirus (PCR) (Not Detect) B. pertussis DNA (PCR) (Not Detecte) B.parapertussis DNA PCR (Not Detecte) Coronavirus OC43 (PCR) (Not Detect) Coronavirus HKU1 (PCR) (Not Detect) Coronavirus 229E (PCR) (Not Detect) SARS-CoV-2 (PCR) (Not Detecte) Coronavirus NL63 (PCR) (Not Detect) Human Metapneumovir PCR (Not Detect) Influenza Type A (PCR) (Not Detect) Influenza Type B (PCR) (Not Detect) M. pneumoniae (PCR) (Not Detect) Parainfluenza 1 (PCR) (Not Detect) Parainfluenza 2 (PCR) (Not Detect) Parainfluenza 3 (PCR) (Not Detect) Parainfluenza 4 (PCR) (Not Detect) RSV (PCR) (Not Detect) Entero/Rhino (PCR) (Not Detect) 04/15/23 04/15/23 Range/Units 16:46 17:05 WBC (4.5-11.0) X10^3/uL RBC (4.5-5.9) X10^6/uL Hgb (13.5-17.5) g/dL Hct (41-53) % MCV (80-100) fL MCH (26-34) PG MCHC (30-36) % RDW (11.6-14.8) % Plt Count (150-400) X10^3/uL Neut % (Auto) (50-75) % Lymph % (Auto) (25-40) % [place] % (Auto) (3-14) % Eos % (Auto) (2-4) % Baso % (Auto) (0-2) % Neut # (Auto) (0973-6654) /uL Lymph # (Auto) (1358-8445) /uL [place] # (Auto) (0-900) /uL Eos # (Auto) (0-450) /uL Baso # (Auto) (0-100) /uL Sodium (137-145) mmol/L Potassium (3.4-5.1) mmol/L Chloride (98-107) mmol/L Carbon Dioxide (22-32) mmol/L BUN (9-20) mg/dL Creatinine (0.66-1.25) mg/dL Estimated GFR (>60) mL/min BUN/Creatinine Ratio (6-22) Glucose (70-100) mg/dL Lactate 0.6 L (0.7-2.1) mmol/L Calcium (8.4-10.2) mg/dL Total Bilirubin (0.2-1.3) mg/dL AST (17-59) IU/L ALT (<50) IU/L Alkaline Phosphatase (38-126) U/L Total Protein (6.3-8.2) g/dL Albumin (3.5-5.0) g/dL Globulin (1.7-4.1) g/dL Albumin/Globulin Ratio (1.0-2.8) Urine Color Urine Appearance Urine pH (4.5-8.0) Ur Specific [address] (1.000-1.035) Urine Protein (Negative) Urine Glucose (UA) (Negative) g/dL Urine Ketones (NEGATIVE) Urine Occult Blood (Negative) Urine Nitrate (Negative) Urine Bilirubin (NEGATIVE) Ur Bilirubin Confirm (Negative) Urine Urobilinogen (0.2) E.U./dL Ur Leukocyte Esterase (NEGATIVE) Urine RBC (0-5/HPF) Urine WBC (0-5/HPF) Amorphous Sediment Urine Bacteria (None) Ur Culture Indicated? Chlamy pneumoniae PCR Not detected (Not Detect) Adenovirus (PCR) Not detected (Not Detect) B. pertussis DNA (PCR) Not detected (Not Detecte) B.parapertussis DNA PCR Not detected (Not Detecte) Coronavirus OC43 (PCR) Not detected (Not Detect) Coronavirus HKU1 (PCR) Not detected (Not Detect) Coronavirus 229E (PCR) Not detected (Not Detect) SARS-CoV-2 (PCR) Not detected (Not Detecte) Coronavirus NL63 (PCR) Not detected (Not Detect) Human Metapneumovir PCR Not detected (Not Detect) Influenza Type A (PCR) Not detected (Not Detect) Influenza Type B (PCR) Not detected (Not Detect) M. pneumoniae (PCR) Not detected (Not Detect) Parainfluenza 1 (PCR) Not detected (Not Detect) Parainfluenza 2 (PCR) Not detected (Not Detect) Parainfluenza 3 (PCR) Not detected (Not Detect) Parainfluenza 4 (PCR) Not detected (Not Detect) RSV (PCR) Not detected (Not Detect) Entero/Rhino (PCR) Not detected (Not Detect) MDM Narrative Medical decision making narrative: 52-year-old male previously healthy presents with fevers and recurrent UTI 3 weeks post colovesicular fistula repair. This surgery was performed at our facility, he had outpatient CT IVP yesterday in preparation for upcoming ureteral stent removal. There is some suggestion of the possibility of pyelonephritis on these images. Patient history and physical exam is largely very reassuring are no signs of sepsis and no other obvious source of an infectious process. Urine today still suggestive of urine, combined with yesterday CT IVP would suggest patient requires hospitalization on IV antibiotics until cultures clear. Various consultants involved as noted above. Patient understands and agrees with the plan Critical Care Time Critical Care Time Critical Care Time: Yes Total Critical Care Time: 30 Attestation: The high probability of a clinically significant, sudden or life threatening deterioration of the [] system(s) required my full and direct attention, intervention and personal management. The aggregate critical care time was [30] minutes. This time is in addition to time spent performing reported procedures but includes the following: [x] Data Review and interpretation [x] Patient assessment and monitoring of vital signs [x] Documentation [x] Medication orders and management Discharge Plan Departure Patient Disposition: Admitted As Inpatient Clinical Impression: Acute UTI, Bacteremia Admit Date/Time: 04/15/23 19:08 Admit Provider: Reg Marte
--- NOTE | 2023-04-15 16:22 | DI.RAD.S_ITS ---
PROCEDURE: XR CHEST 1V INDICATIONS: fevers TECHNIQUE: One view of the chest was acquired. COMPARISON: None. FINDINGS: Surgical changes and devices: None. Lungs and pleura: Lungs are clear. No pleural effusions or pneumothorax. Mediastinum: Mediastinal contours appear normal. Heart size is normal. Bones and chest wall: No suspicious bony lesions. Overlying soft tissues appear unremarkable. IMPRESSION: No acute cardiopulmonary disease. Dictated by: Erika Cueva M.D. on 04/15/2023 at 16:33 Approved by: Erika Cueva M.D. on 04/15/2023 at 16:34
[2023-04-15 17:03] LABS: Add Manual Diff / Slide Review NO; Basophils Absolute Auto 0 /uL (0-100); Basophils Percent Auto 1.1 % (0-2); Eosinophils Absolute Auto 300 /uL (0-450); Eosinophils Percent Auto 8.1 % (2-4); Hematocrit 30.7 % (41-53); Hemoglobin 10.7 g/dL (13.5-17.5); Lymphocytes Absolute Auto 1400 /uL (1100-4500); Lymphocytes Percent Auto 34.3 % (25-40); Mean Corpuscular HGB Conc 34.8 % (30-36); Mean Corpuscular Hemoglobin 30.2 PG (26-34); Mean Corpuscular Volume 86.7 fL (80-100); Monocytes Absolute Auto 600 /uL (0-900); Monocytes Percent Auto 13.8 % (3-14); Neutrophils Absolute Auto 1800 /uL (1500-7000); Neutrophils Percent Auto 42.7 % (50-75); Platelet Count 194 X10^3/uL (150-400); Red Blood Cell Count 3.55 X10^6/uL (4.5-5.9); Red Cell Distribution Width 13.7 % (11.6-14.8); White Blood Cell Count 4.1 X10^3/uL (4.5-11.0)
[2023-04-15 17:07] LABS: Lactate (Lactic Acid) 0.6 mmol/L (0.7-2.1)
[2023-04-15 17:08] LABS: Alanine Aminotransferase 64 IU/L (<50); Albumin 3.6 g/dL (3.5-5.0); Albumin Globulin Ratio 1.2 (1.0-2.8); Alkaline Phosphatase 125 U/L (38-126); Aspartate Aminotransferase 38 IU/L (17-59); BUN Creatinine Ratio 17.1 (6-22); Bilirubin Total 0.2 mg/dL (0.2-1.3); Blood Urea Nitrogen 14 mg/dL (9-20); Calcium 8.6 mg/dL (8.4-10.2); Carbon Dioxide 30 mmol/L (22-32); Chloride 102 mmol/L (98-107); Estimated Glomerular Filt Rate > 60 mL/min (>60); Glucose 108 mg/dL (70-100); HEMOLYSIS < 15 (0-50); Potassium 3.6 mmol/L (3.4-5.1); Sodium 138 mmol/L (137-145); Total Protein 6.6 g/dL (6.3-8.2)
[2023-04-15 18:06] LABS: Adenovirus Not Detected (Not Detect); B. parapertussis Not Detected (Not Detecte); Bordetella pertussis Not Detected (Not Detecte); Chlamydophila pneumoniae Not Detected (Not Detect); Coronavirus 229E Not Detected (Not Detect); Coronavirus HKU1 Not Detected (Not Detect); Coronavirus NL 63 Not Detected (Not Detect); Coronavirus OC43 Not Detected (Not Detect); Human Metapneumovirus Not Detected (Not Detect); Human Rhinovirus/Enterovirus Not Detected (Not Detect); Influenza A Not Detected (Not Detect); Influenza B Not Detected (Not Detect); Mycoplasma pneumoniae Not Detected (Not Detect); Parainfluenza Virus 1 Not Detected (Not Detect); Parainfluenza Virus 2 Not Detected (Not Detect); Parainfluenza Virus 3 Not Detected (Not Detect); Parainfluenza Virus 4 Not Detected (Not Detect); Respiratory Syncytial Virus Not Detected (Not Detect); SARS- CoV-2 Not Detected (Not Detecte)
[2023-04-15] MEDS: ERTAPENEM 1 GM in SODIUM CHLORIDE 0.9% 100 ML IV (18:52)
--- NOTE | 2023-04-15 19:38 | PM.HP.1 ---
History of Present Illness History of Present Illness Date Patient Seen: 04/16/23 Time Patient Seen: 08:36 Chief complaint: UTI symptoms Narrative: 52-year-old male with recent complicated surgical history. Over the last few months patient has been hospitalized. He had urinary tract infections ultimately was found to have a colovesicular fistula. Patient underwent surgery for this procedure and repair with our general surgeon in Urology. Patient had repair of his fistula and had a stent placed in his right ureter. Patient states earlier this week he was seen in the office because he was having urinary tract symptoms. Had a urine culture done which grew out E coli resistant to multiple bacteria but was sensitive to oral nitrofurantoin which she started he was on it for about 5 days. Was going to run out but then began to have mild fevers again. He had an outpatient CT scan of his abdomen and pelvis done. The CT scan showed poorly defined free fluid within the pelvis negative for abscess there is a right-sided double-J stent and the expected location areas of poor enhancement can be seen involving the right superior kidney considerations include pyelonephritis. On Monday patient began to feel ill again. He was having hot flashes fevers and chills. On Monday he went to the walk-in clinic who told him to go to the emergency department. In the emergency department he was found to have a fever blood testing chest x-ray and respiratory panel was done. All of these were unremarkable. Due to patient's CT scan symptoms of fever and patient flushing and postoperative pain patient was admitted to the hospital with IV antibiotics as recommended by on-call Urology at [facility]. This morning patient states he is feeling well has some mild postop pain. No significant right flank pain. Still feeling hot flushes although he is not had any true temperature his white blood cell count kidney function are normal this morning. [facility] Medical History Arthritis Asthma Broken arm Colovesical fistula Diverticula of intestine Diverticulitis Dysphagia GERD (gastroesophageal reflux disease) Intraoperative ureteral injury Juvenile arthritis Numbness and tingling Sciatica Surgical History History of surgery Hx of adenoidectomy S/P epidural steroid injection Status post appendectomy Family History Father Heart disease Social History marital status: number of children: 2 household members: spouse and children occupational status: employed Smoking Status: Never smoker alcohol intake: current Type(s) of exercise: swimming frequency: 3-4 times per week Meds Home Medications and Allergies Home Medications Medication Instructions Recorded Confirmed Type acetaminophen 325 mg capsule 650 mg PO QID PRN pain #60 caps 03/17/23 04/15/23 Rx (Tylenol) ibuprofen 200 mg tablet 400 mg PO Q6H #60 tabs 03/17/23 04/15/23 Rx nitrofurantoin 100 mg PO Q12H 7 days #14 caps 04/10/23 04/15/23 Rx monohydrate/macrocrystals 100 mg capsule (Macrobid) pantoprazole 40 mg tablet,delayed 40 mg PO DAILY 04/15/23 04/15/23 History release tamsulosin 0.4 mg capsule 0.4 mg PO BEDTIME 04/15/23 04/15/23 History Allergies Allergy/AdvReac Type Severity Reaction Status Date / Time No Known Drug Allergies Allergy Verified 04/10/23 09:58 Exam Vital Signs (past 8 hours): - 04/15/23 15:14 04/15/23 17:32 04/15/23 17:33 Temperature 98.2 F Pulse Rate 65 58 L Respiratory Rate 18 Blood Pressure 125/71 139/75 Pulse Oximetry 98 99 Oxygen Delivery Method Room Air 04/15/23 17:33 04/15/23 17:40 04/15/23 17:40 Temperature Pulse Rate 58 L 56 L Respiratory Rate Blood Pressure 130/78 Pulse Oximetry 99 99 Oxygen Delivery Method 04/15/23 18:00 04/15/23 18:00 04/15/23 18:30 Temperature Pulse Rate 59 L Respiratory Rate Blood Pressure 125/77 122/77 Pulse Oximetry 98 Oxygen Delivery Method 04/15/23 18:30 04/15/23 19:00 Temperature Pulse Rate 57 L 57 L Respiratory Rate Blood Pressure Pulse Oximetry 98 98 Oxygen Delivery Method Oxygen Delivery Method Room Air Narrative Exam Narrative: Gen.: Alert no apparent distress HEENT: Pupils equal round and reactive or mucosa is moist Cardio: Regular rhythm Respiratory: Normal respiratory effort Abdomen: Soft Extremities: Full range of motion Neurologic: Grossly intact. Objective Labs 04/16/23 04:25 04/16/23 04:25 Labs: Laboratory Results - last 24 hr 04/15/23 04/15/23 04/15/23 15:25 16:46 16:46 WBC 4.1 L RBC 3.55 L Hgb 10.7 L Hct 30.7 L MCV 86.7 MCH 30.2 MCHC 34.8 RDW 13.7 Plt Count 194 Neut % (Auto) 42.7 L Lymph % (Auto) 34.3 [place] % (Auto) 13.8 Eos % (Auto) 8.1 H Baso % (Auto) 1.1 Neut # (Auto) 1800 Lymph # (Auto) 1400 [place] # (Auto) 600 Eos # (Auto) 300 Baso # (Auto) 0 Sodium 138 Potassium 3.6 Chloride 102 Carbon Dioxide 30 BUN 14 Creatinine 0.82 Estimated GFR > 60 BUN/Creatinine Ratio 17.1 Glucose 108 H Lactate Calcium 8.6 Total Bilirubin 0.2 AST 38 ALT 64 H Alkaline Phosphatase 125 Total Protein 6.6 Albumin 3.6 Globulin 3.0 Albumin/Globulin Ratio 1.2 Urine Color Yellow Urine Appearance Clear Urine pH 5.5 Ur Specific [place] >=1.030 H Urine Protein 3+ H Urine Glucose (UA) Negative Urine Ketones Negative Urine Occult Blood 3+ H Urine Nitrate Negative Urine Bilirubin 1+ H Ur Bilirubin Confirm Negative Urine Urobilinogen 1.0 Ur Leukocyte Esterase 1+ H Urine RBC 10-30/hpf H Urine WBC 5-10/hpf H Amorphous Sediment 1+ Urine Bacteria Few (2-10) H Ur Culture Indicated? Specimen cultured Chlamy pneumoniae PCR Adenovirus (PCR) B. pertussis DNA (PCR) B.parapertussis DNA PCR Coronavirus OC43 (PCR) Coronavirus HKU1 (PCR) Coronavirus 229E (PCR) SARS-CoV-2 (PCR) Coronavirus NL63 (PCR) Human Metapneumovir PCR Influenza Type A (PCR) Influenza Type B (PCR) M. pneumoniae (PCR) Parainfluenza 1 (PCR) Parainfluenza 2 (PCR) Parainfluenza 3 (PCR) Parainfluenza 4 (PCR) RSV (PCR) Entero/Rhino (PCR) 04/15/23 04/15/23 16:46 17:05 WBC RBC Hgb Hct MCV MCH MCHC RDW Plt Count Neut % (Auto) Lymph % (Auto) [place] % (Auto) Eos % (Auto) Baso % (Auto) Neut # (Auto) Lymph # (Auto) [place] # (Auto) Eos # (Auto) Baso # (Auto) Sodium Potassium Chloride Carbon Dioxide BUN Creatinine Estimated GFR BUN/Creatinine Ratio Glucose Lactate 0.6 L Calcium Total Bilirubin AST ALT Alkaline Phosphatase Total Protein Albumin Globulin Albumin/Globulin Ratio Urine Color Urine Appearance Urine pH Ur Specific [place] Urine Protein Urine Glucose (UA) Urine Ketones Urine Occult Blood Urine Nitrate Urine Bilirubin Ur Bilirubin Confirm Urine Urobilinogen Ur Leukocyte Esterase Urine RBC Urine WBC Amorphous Sediment Urine Bacteria Ur Culture Indicated? Chlamy pneumoniae PCR Not detected Adenovirus (PCR) Not detected B. pertussis DNA (PCR) Not detected B.parapertussis DNA PCR Not detected Coronavirus OC43 (PCR) Not detected Coronavirus HKU1 (PCR) Not detected Coronavirus 229E (PCR) Not detected SARS-CoV-2 (PCR) Not detected Coronavirus NL63 (PCR) Not detected Human Metapneumovir PCR Not detected Influenza Type A (PCR) Not detected Influenza Type B (PCR) Not detected M. pneumoniae (PCR) Not detected Parainfluenza 1 (PCR) Not detected Parainfluenza 2 (PCR) Not detected Parainfluenza 3 (PCR) Not detected Parainfluenza 4 (PCR) Not detected RSV (PCR) Not detected Entero/Rhino (PCR) Not detected Assessment & Plan Assessment and plan (1) Pyelonephritis: Status: Acute Plan Pyelonephritis. Patient with acute pyelonephritis after right ureter repair with stent placement. Patient's urinary culture grew out E coli which is sensitive to ertapenem and resistant to many other oral antibiotics. Patient will be placed on IV ertapenem for 48 hours. Urology was consulted through the [facility] they recommended admission to the hospital and IV antibiotics for 48 hours and stent replacement. Discussed with patient today about plans. We currently have no urologist in house and the need for IV antibiotics and admission was discussed. Patient was hoping that maybe we can do IV antibiotics as an outpatient and have him come back in in a day or 2 when urologist available to have the stent removed. Currently his white blood cell count temperature and blood pressure are all stable. He is eating and tolerating an oral diet. Acute fever probable bacteremia. Blood cultures pending at this point patient was still signs and symptoms of flushing and warmth. Probably due to underlying kidney infection. Recommended IV antibiotics and stent removal. GERD. Patient will be continued on his pantoprazole DVT prophylaxis patient will be continued on Lovenox Disposition plan admit as an inpatient. Anticipate hospitalization for greater than 48 hours and stent removal here in the next few days. Possibility of discharge with IV antibiotics and return for stent procedure if ability to do that as over the holiday weekend.
[2023-04-15] MEDS: SODIUM CHLORIDE 0.45% 1,000 ML 100 ML IV (22:11)
[2023-04-16] MEDS: ACETAMINOPHEN 325 MG TABLET 650 MG PO ×2 (01:35→13:07)
[2023-04-16 04:00] VITALS: BP 124/67; PULSE 56; RESP 16; TEMP 36.3; O2SAT 100
[2023-04-16 05:03] LABS: BUN Creatinine Ratio 16.9 (6-22); Blood Urea Nitrogen 13 mg/dL (9-20); Calcium 8.3 mg/dL (8.4-10.2); Carbon Dioxide 28 mmol/L (22-32); Chloride 104 mmol/L (98-107); Estimated Glomerular Filt Rate > 60 mL/min (>60); Glucose 111 mg/dL (70-100); HEMOLYSIS < 15 (0-50); Potassium 3.9 mmol/L (3.4-5.1); Sodium 138 mmol/L (137-145)
[2023-04-16 05:04] LABS: Add Manual Diff / Slide Review NO; Basophils Absolute Auto 0 /uL (0-100); Basophils Percent Auto 1.2 % (0-2); Eosinophils Absolute Auto 400 /uL (0-450); Hematocrit 32.1 % (41-53); Hemoglobin 11.2 g/dL (13.5-17.5); Lymphocytes Absolute Auto 1400 /uL (1100-4500); Lymphocytes Percent Auto 34.9 % (25-40); Mean Corpuscular HGB Conc 34.8 % (30-36); Mean Corpuscular Hemoglobin 30.6 PG (26-34); Mean Corpuscular Volume 87.8 fL (80-100); Monocytes Absolute Auto 700 /uL (0-900); Neutrophils Absolute Auto 1600 /uL (1500-7000); Neutrophils Percent Auto 37.9 % (50-75); Platelet Count 189 X10^3/uL (150-400); Red Blood Cell Count 3.66 X10^6/uL (4.5-5.9); Red Cell Distribution Width 13.8 % (11.6-14.8); White Blood Cell Count 4.1 X10^3/uL (4.5-11.0)
[2023-04-16] MEDS: PANTOPRAZOLE DR 20 MG TABLET PO (06:26)
[2023-04-16] MEDS: ENOXAPARIN 40 MG/0.4 ML SYRINGE SUBCUT (08:50)
--- NOTE | 2023-04-16 11:06 | PM.PN.1 ---
Subjective Subjective Date Patient Seen: 04/16/23 Time Patient Seen: 11:06 Interval history: Patient admitted for right pyelonephritis and has been started on ertapenem. Exam Vital Signs (past 8 hours): - 04/16/23 04:00 Temperature 97.3 F L Pulse Rate 56 L Respiratory Rate 16 Blood Pressure 124/67 Pulse Oximetry 100 Oxygen Delivery Method Room Air Narrative Exam Narrative: Abdomen soft Well-healed low midline incision Objective Labs 04/16/23 04:25 04/16/23 04:25 Labs: Laboratory Results - last 24 hr 04/15/23 04/15/23 04/15/23 15:25 16:46 16:46 WBC 4.1 L RBC 3.55 L Hgb 10.7 L Hct 30.7 L MCV 86.7 MCH 30.2 MCHC 34.8 RDW 13.7 Plt Count 194 Neut % (Auto) 42.7 L Lymph % (Auto) 34.3 [place] % (Auto) 13.8 Eos % (Auto) 8.1 H Baso % (Auto) 1.1 Neut # (Auto) 1800 Lymph # (Auto) 1400 [place] # (Auto) 600 Eos # (Auto) 300 Baso # (Auto) 0 Sodium 138 Potassium 3.6 Chloride 102 Carbon Dioxide 30 BUN 14 Creatinine 0.82 Estimated GFR > 60 BUN/Creatinine Ratio 17.1 Glucose 108 H Lactate Calcium 8.6 Total Bilirubin 0.2 AST 38 ALT 64 H Alkaline Phosphatase 125 Total Protein 6.6 Albumin 3.6 Globulin 3.0 Albumin/Globulin Ratio 1.2 Urine Color Yellow Urine Appearance Clear Urine pH 5.5 Ur Specific [place] >=1.030 H Urine Protein 3+ H Urine Glucose (UA) Negative Urine Ketones Negative Urine Occult Blood 3+ H Urine Nitrate Negative Urine Bilirubin 1+ H Ur Bilirubin Confirm Negative Urine Urobilinogen 1.0 Ur Leukocyte Esterase 1+ H Urine RBC 10-30/hpf H Urine WBC 5-10/hpf H Amorphous Sediment 1+ Urine Bacteria Few (2-10) H Ur Culture Indicated? Specimen cultured Chlamy pneumoniae PCR Adenovirus (PCR) B. pertussis DNA (PCR) B.parapertussis DNA PCR Coronavirus OC43 (PCR) Coronavirus HKU1 (PCR) Coronavirus 229E (PCR) SARS-CoV-2 (PCR) Coronavirus NL63 (PCR) Human Metapneumovir PCR Influenza Type A (PCR) Influenza Type B (PCR) M. pneumoniae (PCR) Parainfluenza 1 (PCR) Parainfluenza 2 (PCR) Parainfluenza 3 (PCR) Parainfluenza 4 (PCR) RSV (PCR) Entero/Rhino (PCR) 04/15/23 04/15/23 04/16/23 16:46 17:05 04:25 WBC 4.1 L RBC 3.66 L Hgb 11.2 L Hct 32.1 L MCV 87.8 MCH 30.6 MCHC 34.8 RDW 13.8 Plt Count 189 Neut % (Auto) 37.9 L Lymph % (Auto) 34.9 [place] % (Auto) 16.0 H Eos % (Auto) 10.0 H Baso % (Auto) 1.2 Neut # (Auto) 1600 Lymph # (Auto) 1400 [place] # (Auto) 700 Eos # (Auto) 400 Baso # (Auto) 0 Sodium Potassium Chloride Carbon Dioxide BUN Creatinine Estimated GFR BUN/Creatinine Ratio Glucose Lactate 0.6 L Calcium Total Bilirubin AST ALT Alkaline Phosphatase Total Protein Albumin Globulin Albumin/Globulin Ratio Urine Color Urine Appearance Urine pH Ur Specific [place] Urine Protein Urine Glucose (UA) Urine Ketones Urine Occult Blood Urine Nitrate Urine Bilirubin Ur Bilirubin Confirm Urine Urobilinogen Ur Leukocyte Esterase Urine RBC Urine WBC Amorphous Sediment Urine Bacteria Ur Culture Indicated? Chlamy pneumoniae PCR Not detected Adenovirus (PCR) Not detected B. pertussis DNA (PCR) Not detected B.parapertussis DNA PCR Not detected Coronavirus OC43 (PCR) Not detected Coronavirus HKU1 (PCR) Not detected Coronavirus 229E (PCR) Not detected SARS-CoV-2 (PCR) Not detected Coronavirus NL63 (PCR) Not detected Human Metapneumovir PCR Not detected Influenza Type A (PCR) Not detected Influenza Type B (PCR) Not detected M. pneumoniae (PCR) Not detected Parainfluenza 1 (PCR) Not detected Parainfluenza 2 (PCR) Not detected Parainfluenza 3 (PCR) Not detected Parainfluenza 4 (PCR) Not detected RSV (PCR) Not detected Entero/Rhino (PCR) Not detected 04/16/23 04:25 WBC RBC Hgb Hct MCV MCH MCHC RDW Plt Count Neut % (Auto) Lymph % (Auto) [place] % (Auto) Eos % (Auto) Baso % (Auto) Neut # (Auto) Lymph # (Auto) [place] # (Auto) Eos # (Auto) Baso # (Auto) Sodium 138 Potassium 3.9 Chloride 104 Carbon Dioxide 28 BUN 13 Creatinine 0.77 Estimated GFR > 60 BUN/Creatinine Ratio 16.9 Glucose 111 H Lactate Calcium 8.3 L Total Bilirubin AST ALT Alkaline Phosphatase Total Protein Albumin Globulin Albumin/Globulin Ratio Urine Color Urine Appearance Urine pH Ur Specific [place] Urine Protein Urine Glucose (UA) Urine Ketones Urine Occult Blood Urine Nitrate Urine Bilirubin Ur Bilirubin Confirm Urine Urobilinogen Ur Leukocyte Esterase Urine RBC Urine WBC Amorphous Sediment Urine Bacteria Ur Culture Indicated? Chlamy pneumoniae PCR Adenovirus (PCR) B. pertussis DNA (PCR) B.parapertussis DNA PCR Coronavirus OC43 (PCR) Coronavirus HKU1 (PCR) Coronavirus 229E (PCR) SARS-CoV-2 (PCR) Coronavirus NL63 (PCR) Human Metapneumovir PCR Influenza Type A (PCR) Influenza Type B (PCR) M. pneumoniae (PCR) Parainfluenza 1 (PCR) Parainfluenza 2 (PCR) Parainfluenza 3 (PCR) Parainfluenza 4 (PCR) RSV (PCR) Entero/Rhino (PCR) PFSH Medical History Arthritis Asthma Broken arm Colovesical fistula Diverticula of intestine Diverticulitis Dysphagia GERD (gastroesophageal reflux disease) Intraoperative ureteral injury Juvenile arthritis Numbness and tingling Sciatica Surgical History History of surgery Hx of adenoidectomy S/P epidural steroid injection Status post appendectomy Family History Father Heart disease Social History marital status: number of children: 2 household members: spouse and children occupational status: employed Smoking Status: Never smoker alcohol intake: current Type(s) of exercise: swimming frequency: 3-4 times per week Assessment & Plan Assessment and plan (1) Pyelonephritis: Status: Acute Plan On IV ertapenem for right pyelonephritis. Hopefully can transition to outpatient ertapenem therapy once the logistics can be arranged. Quality VTE Deep Vein Thrombosis/Pulmonary Embolism Present on Admission: No
--- NOTE | 2023-04-16 11:43 | CM.DANOTE ---
DCP/Assessment: Reviewed chart. Patient is a 52yr old male admitted with UTI. Patient currently INPT. status. PCP is Dr. Trevizo. Primary provider is 1[facility] out of [facility]. Met with patient explained role. CM team spoke with Dr. Marte this AM who reports that patient will most likely need IV erterpenem x7dys. However, unable to arrange over holiday weekend. Dr. Marte reports patient scheduled to see urology on 04-18 therefore, patient will remain hospitalized until he is seen by urology and decision made on whether or not urology stent will be removed. Either way it is anticipated he will need IV abx. Patient has no preference in coming outpatient or home infusion. Placed call to [facility] and clinicals sent. CM team to follow closely and find out on Monday how long abx will be needed and PICC will need to be placed prior to d/c home with IV abx. Patient hopes to leave on Monday? Unsure if realistic given that we are waiting on urology. P: Home with IV abx either outpatient vs. [facility]. CM team to check with outpatient infusion on Monday in AM. NIKKO Discharge Planning/Care Management CM Discharge Assessment Start: 04/16/23 11:31 Freq: Status: Active Protocol: Document 04/16/23 11:31 NIKKO (Rec: 04/16/23 11:43 NIKKO [id number]) Discharge Planning Assessment Assigned Steel Shot Header Operator KIKI Patton Contact Information Ailyn Strong (spouse) # Advance Directives? No History Provided By Patient,Medical Record Has Patient been admitted in last 30 No days? Prior Living Arrangements House Comment 2 stairs into house Household Members spouse,children Type of transporation used prior to Drives own vehicle admit Independent with ADL's Yes Is patient alert and oriented? Yes Caregiver for Another Yes: Family Patient/Family Preference Home with Home Health Comment Patient most likely will need IV therapy at time of d/c. At this time patient on ertepenem q day and it is estimated for 7days? Barriers to Discharge No Comment Most likely will need IV abx via outpatient vs. home infusion. [facility] aware and clinical information faxed on 04-16-23. Patient has no preference with outpatient plan. Unable to contact infusion clinic today and both will need to obtain authorization from [facility] out of [facility]. Discharge Plan Home with Home Health Transportation Arrangement Family Referrals Initiated Other Additional Comment Pending, patient to be seen by Urology on 04-18-23 for probable stent removal? Whiteboard Updated in Patient Room with Yes name and ext. # of Steel Shot Header Operator Review Status In Process Next Review Type Continued Stay Review
[2023-04-16 12:00] VITALS: BP 114/58; PULSE 67; RESP 14; TEMP 36.8; O2SAT 97
[2023-04-16 19:53] VITALS: BP 130/78; PULSE 61; RESP 16; TEMP 36.6; O2SAT 97
[2023-04-16] MEDS: ERTAPENEM 1 GM in SODIUM CHLORIDE 0.9% 100 ML IV (20:09)
[2023-04-17 04:49] VITALS: BP 131/63; PULSE 72; RESP 16; TEMP 37.1; O2SAT 96
[2023-04-17 05:24] LABS: Add Manual Diff / Slide Review NO; Basophils Absolute Auto 100 /uL (0-100); Basophils Percent Auto 1.1 % (0-2); Eosinophils Absolute Auto 400 /uL (0-450); Eosinophils Percent Auto 9.9 % (2-4); Hematocrit 33.7 % (41-53); Hemoglobin 11.6 g/dL (13.5-17.5); Lymphocytes Absolute Auto 1400 /uL (1100-4500); Lymphocytes Percent Auto 30.7 % (25-40); Mean Corpuscular HGB Conc 34.4 % (30-36); Mean Corpuscular Hemoglobin 30.1 PG (26-34); Mean Corpuscular Volume 87.6 fL (80-100); Monocytes Absolute Auto 500 /uL (0-900); Monocytes Percent Auto 11.9 % (3-14); Neutrophils Absolute Auto 2100 /uL (1500-7000); Neutrophils Percent Auto 46.4 % (50-75); Platelet Count 216 X10^3/uL (150-400); Red Blood Cell Count 3.85 X10^6/uL (4.5-5.9); Red Cell Distribution Width 13.8 % (11.6-14.8); White Blood Cell Count 4.5 X10^3/uL (4.5-11.0)
[2023-04-17 05:32] LABS: BUN Creatinine Ratio 15.2 (6-22); Blood Urea Nitrogen 12 mg/dL (9-20); Calcium 8.5 mg/dL (8.4-10.2); Carbon Dioxide 26 mmol/L (22-32); Chloride 105 mmol/L (98-107); Estimated Glomerular Filt Rate > 60 mL/min (>60); Glucose 111 mg/dL (70-100); HEMOLYSIS < 15 (0-50); Sodium 138 mmol/L (137-145)
[2023-04-17] MEDS: PANTOPRAZOLE DR 20 MG TABLET PO (07:42)
[2023-04-17 07:45] VITALS: BP 126/68; PULSE 59; RESP 16; O2SAT 97
--- NOTE | 2023-04-17 08:14 | P.PN_ITS ---
Subjective Subjective Date Patient Seen: 04/17/23 Time Patient Seen: 08:14 Interval history: Patient seen and evaluated this morning. Says he is doing well. Received IV antibiotics yesterday. Family came to visit. Anxious to proceed with stent procedure and or going home with IV antibiotics. Will work on this with discharge planning today. Our Urology team should be back available for consultation tomorrow. Did well overnight. One episode of just night sweats. No significant worsening pain no nausea normal bowel movements and urination. Exam Vital Signs (past 8 hours): - 04/17/23 04:49 04/17/23 07:45 Temperature 98.7 F Pulse Rate 72 59 L Respiratory Rate 16 16 Blood Pressure 131/63 126/68 Pulse Oximetry 96 97 Oxygen Flow Rate 0 Oxygen Delivery Method Room Air Oxygen Flow Rate 0 Narrative Exam Narrative: Gen.: Alert good historian HEENT: Pupils equal round and reactive Cardio: Regular rate and rhythm Respiratory: Normal respiratory effort Abdomen: Soft Extremities: Full range of motion Neurologic: No neurological deficits Objective Labs 04/17/23 04:35 04/17/23 04:35 Labs: Laboratory Results - last 24 hr 04/17/23 04/17/23 04:35 04:35 WBC 4.5 RBC 3.85 L Hgb 11.6 L Hct 33.7 L MCV 87.6 MCH 30.1 MCHC 34.4 RDW 13.8 Plt Count 216 Neut % (Auto) 46.4 L Lymph % (Auto) 30.7 [place] % (Auto) 11.9 Eos % (Auto) 9.9 H Baso % (Auto) 1.1 Neut # (Auto) 2100 Lymph # (Auto) 1400 [place] # (Auto) 500 Eos # (Auto) 400 Baso # (Auto) 100 Sodium 138 Potassium 4.0 Chloride 105 Carbon Dioxide 26 BUN 12 Creatinine 0.79 Estimated GFR > 60 BUN/Creatinine Ratio 15.2 Glucose 111 H Calcium 8.5 PFSH Medical History Arthritis Asthma Broken arm Colovesical fistula Diverticula of intestine Diverticulitis Dysphagia GERD (gastroesophageal reflux disease) Intraoperative ureteral injury Juvenile arthritis Numbness and tingling Sciatica Surgical History History of surgery Hx of adenoidectomy S/P epidural steroid injection Status post appendectomy Family History Father Heart disease Social History marital status: number of children: 2 household members: spouse and children occupational status: employed Smoking Status: Never smoker alcohol intake: current Type(s) of exercise: swimming frequency: 3-4 times per week Assessment & Plan Assessment and plan (1) Pyelonephritis: Status: Acute Plan Pyelonephritis. With possible stent infection. Continue with IV antibiotics 24 more hours. Urology consultation tomorrow. Arrange for outpatient IV antibiotics with which he will need for few days after hospital stay. Acute fever probable bacteremia.? Patient feeling better. Blood cultures no growth to this point. White blood cell count stable. GERD.? Patient will be continued on his pantoprazole DVT prophylaxis patient will be continued on Lovenox Disposition plan admit as an inpatient.? Urology consultation tomorrow. Will likely need stent removal and or replacement may need IV antibiotics at home afterwards. Quality VTE Deep Vein Thrombosis/Pulmonary Embolism Present on Admission: No
[2023-04-17] MEDS: ENOXAPARIN 40 MG/0.4 ML SYRINGE SUBCUT (09:14)
[2023-04-17 13:07] VITALS: TEMP 36.6
[2023-04-17] MEDS: ACETAMINOPHEN 325 MG TABLET 650 MG PO (13:07)
[2023-04-17 17:02] VITALS: BP 136/77; PULSE 69; RESP 16; TEMP 36.4; O2SAT 98
[2023-04-17] MEDS: ERTAPENEM 1 GM in SODIUM CHLORIDE 0.9% 100 ML IV (19:44)
[2023-04-17 20:00] VITALS: BP 121/65; PULSE 59; RESP 17; TEMP 36.5; O2SAT 98
[2023-04-17] MEDS: SODIUM CHLORIDE 0.9% FLUSH 10 ML IV (21:12)
--- NOTE | 2023-04-18 00:37 | PC.NURSE ---
Assumed care of pt from Madelyn FREEDMAN at 0030.
[2023-04-18 04:00] VITALS: BP 116/56; PULSE 55; RESP 16; TEMP 36.3; O2SAT 99
[2023-04-18] MEDS: ACETAMINOPHEN 325 MG TABLET 650 MG PO (05:07)
[2023-04-18] MEDS: PANTOPRAZOLE DR 20 MG TABLET PO (05:07)
--- NOTE | 2023-04-18 08:29 | P.PN_ITS ---
Subjective Subjective Date Patient Seen: 04/18/23 Time Patient Seen: 08:29 Interval history: Patient is feeling very well without any complaints. He is afebrile. He is eating without any difficulty. He is having normal bowel and bladder function. New patient to me. Seeing on-call for Dr. oneill Twelve point review of systems otherwise negative Exam Vital Signs (past 8 hours): - 04/18/23 04:00 Temperature 97.3 F L Pulse Rate 55 L Respiratory Rate 16 Blood Pressure 116/56 L Pulse Oximetry 99 Oxygen Delivery Method Room Air Oxygen Flow Rate 0 Narrative Exam Narrative: Afebrile vital signs are stable HEENT unremarkable Neck is supple without adenopathy Chest: Clear to auscultation without wheezes rhonchi or crackles Cor: Regular rate and rhythm without a murmur Abdomen: Positive bowel sounds, soft, nontender, nondistended Extremities no edema pulses intact Objective Labs 04/17/23 04:35 04/17/23 04:35 [facility] Medical History Arthritis Asthma Broken arm Colovesical fistula Diverticula of intestine Diverticulitis Dysphagia GERD (gastroesophageal reflux disease) Intraoperative ureteral injury Juvenile arthritis Numbness and tingling Sciatica Surgical History History of surgery Hx of adenoidectomy S/P epidural steroid injection Status post appendectomy Family History Father Heart disease Social History marital status: number of children: 2 household members: spouse and children occupational status: employed Smoking Status: Never smoker alcohol intake: current Type(s) of exercise: swimming frequency: 3-4 times per week Assessment & Plan Assessment & Plan narrative: Very pleasant 52-year-old male admitted with acute pyelonephritis likely secondary to ureteral stent. Case was discussed with [facility] urology on-call and recommended IV antibiotics and then removal of the stent. Patient continues to be afebrile and we are currently awaiting Urology consult Assessment 1. Pyelonephritis with recent previous infection resistant E coli and patient currently on ertapenem. Next dose is due at 7:00 a.m. brandon. I think the most important thing is removing the stent. We have contacted Dr. Nelson is office. Dr. Nelson ordered the CT on and we have left messages for on-call coverage. We will await their consult be for determining disposition. Patient continues to improve from a clinical standpoint. Assessment 2. Bacteremia, patient is currently afebrile and vital signs are stable Plan: Continue with same ertapenem Assessment 3. DVT prophylaxis Plan: Hold Lovenox today in hopes for procedure later today for stent removal Assessment 4. GERD Plan: Will continue proton pump inhibitor This is a new patient to me. Reviewed chart and discussed with pharmacy as well as with physician and nursing staff Quality VTE Deep Vein Thrombosis/Pulmonary Embolism Present on Admission: No
[2023-04-18] MEDS: SODIUM CHLORIDE 0.45% 1,000 ML 100 ML IV (10:22)
[2023-04-18 12:00] VITALS: BP 107/63; PULSE 61; RESP 20; TEMP 36.6; O2SAT 97
--- NOTE | 2023-04-18 12:52 | CM.DPNOTE ---
Discharge Planning Note: Patient will most likely need a week of Ertapenem Q 24 hours but this is not confirmed until urologist sees patient this afternoon. [facility] received referral and called patient and provided copay information which patient is fine with. This DCP called referral to [facility] for outpatient infusions, they cannot give a cost estimate because [facility] is out for the week. The patient can go either way, infusion center or [facility]. His spouse could help him at home with infusions. Also, [facility] confirms that they would be able to change IV access site weekly as well. Patient has peripheral IV currently but will need midline or PICC depending on length of IVABs needed. Plan: Awaiting urology to see patient and give orders for IVABs on discharge. DCP to confirm referral and start date with either [facility] or our outpatient infusion center. Bhargavi Tristan RN/DCP
[2023-04-18] MEDS: ERTAPENEM 1 GM in SODIUM CHLORIDE 0.9% 100 ML IV (18:27)
--- NOTE | 2023-04-18 19:43 | PC.NURSE ---
Patient teaching done with patient at bedside. All questions answered. Pt [facility], understands to order picker and start taking per providers instructions. Patient gathered belongings on own, per his req. walked out of hospital. VSS. Left in stable condition.
--- NOTE | 2023-04-21 19:36 | P.DS_ITS ---
History of Present Illness History of Present Illness Chief complaint: UTI symptoms Narrative: This is an addendum to this visit note from 04/18/2023 Discharge Providers Provider Date of admission: 04/15/23 19:08 Discharge Date: 04/18/23 Primary care physician: Sukhjinder Trevizo MD Consults: urology: [facility] urology who is on-call for [facility] over the weekend was consulted from the ER. They felt patient needed to be admitted for IV antibiotics and have his stent removed. Dr. Nelson was out of the office on 04/18/[address] Pichardo was covering. He felt that the patient could be treated with oral antibiotics and that Dr. Nelson could see him as an outpatient and remove the stent. He did not feel comfortable removing the stent prior to discharge because he was concerned that it was not completely healed. He also did not feel that it required inpatient hospitalization to be done. Discharge provider: Whit Watkins MD Summary Hospital Course Discharge Diagnosis: Urinary tract infection Hydronephrosis Ureteral stent in place Hospital Course: Patient was admitted to the hospital with symptoms of urinary tract infection and possible pyelonephritis. He would had a previously resistant E coli urinary tract infection and so until the culture was finalized from the urine he was placed on ertapenem based on the last UTI and urine culture findings. Was having symptoms as an outpatient on the [facility] which precipitated him going to the urgent care and they sent him to the ER and then he was hospitalized. He was discharged home on hospital day 4. On oral Cipro 500 mg twice daily for 7 days per recommendations from Dr. Pichardo. He would no complications in the hospital. Was tolerating p.o. without any difficulty. Was having normal urine and stool function at the time of discharge and preliminary blood cultures were negative. Status at Discharge Cognitive/behavioral status at discharge: at baseline, oriented Functional status at discharge: independent ambulation Overall status at discharge: patient is back to baseline Exam Vital Signs (past 8 hours): Oxygen Delivery Method Room Air Oxygen Flow Rate 0 Narrative Exam Narrative: Afebrile vital signs are stable Lungs are clear to auscultation Cor regular rate and rhythm without a murmur Abdomen benign no costovertebral angle tenderness Extremities unremarkable Objective Labs 04/17/23 04:35 04/17/23 04:35 [facility] Medical History (Updated 04/20/23 @ 10:40 by Kassandra Nelson MD) Arthritis Asthma Broken arm Colovesical fistula Diverticula of intestine Diverticulitis Dysphagia GERD (gastroesophageal reflux disease) Intraoperative ureteral injury Juvenile arthritis Numbness and tingling Retained ureteral stent Sciatica Surgical History History of surgery Hx of adenoidectomy S/P epidural steroid injection Status post appendectomy Family History Father Heart disease Social History marital status: number of children: 2 household members: spouse and children occupational status: employed Smoking Status: Never smoker alcohol intake: current Type(s) of exercise: swimming frequency: 3-4 times per week Discharge Assessment & Plan Assessment and Plan Assessment: UTI Pyelonephritis Hydronephrosis Ureteral stent Plan of Treatment: Cipro 500 mg twice daily for 7 days Continue same outpatient medication follow up with surgery Follow up with Dr. Nelson tomorrow appointment has already been made. Discharge Plan Discharge Plan Patient Disposition: Home Provider Discharge Comment: discharge note to [facility] Discharge Comment: A prescription has been sent in for you for Cipro. It is at [facility] pharmacy. Take the antibiotic and keep your follow up appointment with Dr. Nelson. Dr Christopher may change your antibiotics later. Discharge orders & Medications Prescriptions: Continued pantoprazole 40 mg tablet,delayed release (DR/EC) 40 mg PO DAILY Patient Comments: TAKE 1 TABLET BY MOUTH ONCE DAILY tamsulosin 0.4 mg capsule 0.4 mg PO BEDTIME Patient Comments: TAKE 1 CAPSULE BY MOUTH AT BEDTIME ibuprofen 200 mg tablet 400 mg PO Q6H Qty: 60 0RF acetaminophen [Tylenol] 325 mg capsule 650 mg PO QID PRN (Reason: pain) Qty: 60 0RF No Action ciprofloxacin HCl 500 mg tablet 500 mg PO BID Follow up/Referrals: Tray Mcdaniels MD [Physician] - Sukhjinder Trevizo MD [Primary Care Provider] - 2 Weeks Visit Report/Discharge Packet Instructions: Kidney Infection, DI for Urinary Tract Infection (UTI), Ciprofloxacin Stand Alone Forms: Patient Portal/API, Stroke Signs & Symptoms Discharge Data Primary Care Provider: Sukhjinder Trevizo Discharges patient from system. Discharge Date/Time: 04/18/23 19:30 Quality VTE Deep Vein Thrombosis/Pulmonary Embolism Present on Admission: No
== END 2023-04-18 19:30 | disposition home or self-care (01) | DRG 699 ==
LOC: ED 15:16 → AC 19:08
PROVIDERS: Admitting Provider Family Medicine; Emergency Provider Emergency Medicine; PCP Family Medicine; Referring Provider Emergency Medicine; Visit Provider Family Medicine
DX: T83.593A Infection and inflammatory reaction due to other urinary stents, initial encounter (principal); N13.6 Pyonephrosis; B96.20 Unspecified Escherichia coli [E. coli] as the cause of diseases classified elsewhere; K21.9 Gastro-esophageal reflux disease without esophagitis; Z20.822 Contact with and (suspected) exposure to COVID-19; K44.9 Diaphragmatic hernia without obstruction or gangrene; K76.89 Other specified diseases of liver
CPT/HCPCS: 36415; 51798; 71045; 74178; 80048; 80053; 81001; 83605; 85025; 87040; 87077; 87086; 87186; 87633; 96365; 96366; 99232; 99284; 99291; J1335; J1650; J7050; Q9967

== ENCOUNTER → 2023-08-07 17:08 | Outpatient (CLI) | payer BC, SELFPAY ==
[2023-04-15 21:52] VITALS: BMI 26.2
[2023-08-07 18:17] LABS: Prostate Specific Antigen 4.18 ng/mL (0.10-4.00)
== END ==
PROVIDERS: PCP Family Medicine; Referring Provider Specialist; Visit Provider Specialist
DX: N32.1 Vesicointestinal fistula (principal)
CPT/HCPCS: 36415; 84153

== ENCOUNTER → 2023-09-14 14:37 | Outpatient (CLI) | payer BC, SELFPAY ==
[2023-04-15 21:52] VITALS: BMI 26.2
[2023-09-20 10:51] LABS: PSA Free % 8.4 % (.); PSA, Total 3.1 ng/mL (0.0-4.0)
== END ==
PROVIDERS: PCP Family Medicine; Referring Provider Specialist; Visit Provider Specialist
DX: N40.0 Benign prostatic hyperplasia without lower urinary tract symptoms (principal); R97.20 Elevated prostate specific antigen [PSA]
CPT/HCPCS: 36415; 84153; 84154

== ENCOUNTER 2024-04-23 13:17 | Day surgery (SDC) | payer BC, SELFPAY ==
[2023-04-15 21:52] VITALS: BMI 26.2
--- NOTE | 2024-04-23 | PATH_ITS ---
[facility] Accession Number: [id number] No. of containers..02 Tissue . 01 Material submitted: . PART A: esophagus, E-G Junction - GE JUNCTION BIOPSY PART B: esophagus - ESOPHAGEAL BIOPSY X 3 . 01 Diagnosis: A. GASTROESOPHAGEAL JUNCTION, BIOPSY: Squamous mucosa with increased intraepithelial eosinophils (greater than 50 per high-powered field). Please see comment. Negative for dysplasia and malignancy. . B. ESOPHAGUS, BIOPSY: Squamous epithelium with increased intraepithelial eosinophils (greater than 50 per high-powered field). Please see comment. Negative for dysplasia and malignancy. [facility] 04/29/2024 1506 Local . 01 Comment: A-B: In the proper clinical setting, the histopathologic appearance would support a clinical impression of eosinophilic esophagitis. The differential diagnosis includes drug reaction, gastroesophageal reflux, and food allergies. . . 01 Electronically signed: . Marlyn Braxton MD, Pathologist NPI- [id number] . 01 Gross description: . Part A: GE JUNCTION BIOPSY: Received in formalin is 1 fragment(s) of roberson, soft tissue measuring 0.3 x 0.1 x 0.1 cm submitted entirely in 1 cassette(s) Part B: ESOPHAGEAL BIOPSY X 3: Received in formalin are 3 fragment(s) of roberson, soft tissue measuring 0.2 x 0.2 x 0.2 cm to 0.7 x 0.2 x 0.2 cm submitted entirely in 1 cassette(s) /BRIAN 04/24/2024 1915 Local . 01 Pathologist provided ICD-10: K20.0 . 01 CPT . 903453, 561406 Specimen Comment: A courtesy copy of this report has been sent to [phone] Performed at: [address] [place] [address] [address], [place], [place] [id number] MD Jeremiah Kaur MD Phone: [phone]
[2024-04-23] MEDS: LACTATED RINGERS 1,000 ML 42 ML IV (14:01)
[2024-04-23 14:03] VITALS: BP 116/75; PULSE 58; RESP 16; TEMP 36.5; O2SAT 97
--- NOTE | 2024-04-23 14:28 | PM.PREOP ---
Pre-operative Note Interval Note History & Physical reviewed/Exam performed by Physician: Yes Changes to H&P: No
--- NOTE | 2024-04-23 15:07 | PM.OP.EGD ---
Operative Date/Time/Diagnoses Date of procedure: 04/23/24 Time of procedure: 15:07 Pre-op diagnosis: Esophageal dysphagia Post-op diagnosis: same Procedure & Clinicians Study performed: Esophagogastroduodenoscopy Same procedure as scheduled: Yes Indications: 53-year-old male with history of hiatal hernia and previous esophageal dilatation here for diagnostic upper endoscopy secondary to recurrent esophageal dysphagia Surgeon: Johnny Self Procedure Notes Procedure in detail: The history and physical was performed/updated and the patient is ASA class is 2. The procedure was discussed in detail with the patient. Potential risks complications including infection, bleeding, missed diagnosis, perforation, need for surgery, and were explained. Their questions were answered and informed consent was obtained. Patient placed in left lateral decubitus position. Time out was performed. Procedural sedation was administered by Anesthesia. A bite block was placed. the scope was inserted into the mouth and advanced through the esophagus and into the stomach. The pylorus was intubated and the duodenum was examined to the 2nd portion. The scope was then withdrawn into the stomach and was retroflexed. The stomach was decompressed and scope was withdrawn slowly through the esophagus. FINDINGS -No jennifer narrowing of esophagus at least 20 mm in diameter -Esophagitis. Biopsies of GE junction taken with forceps. Biopises of esophagus taken with forceps -Long linear furrows within esophageal mucosa sometimes seen with eosinophilic esophagitis. -Hiatal hernia small to moderate size The patient tolerated the procedure well and will be discharged when they meet criteria. Specimen(s): other (GE junction, Esophagus) Impression: Hiatal hernia Esophagitis Post-procedure Plan for aftercare: Repeat barrium swallow test. Disposition: same day surgery
[2024-04-23 15:09] VITALS: BP 101/68; PULSE 67; RESP 18; TEMP 36.2; O2SAT 96
[2024-04-23 15:14] VITALS: BP 93/60; PULSE 58; RESP 14; O2SAT 95
[2024-04-23 15:19] VITALS: BP 98/57; PULSE 66; RESP 15; TEMP 36.2; O2SAT 96
== END 2024-04-23 15:44 | disposition home or self-care (01) ==
PROVIDERS: PCP Family Medicine; Referring Provider Surgery; Visit Provider Surgery
PROC: 0DJ08ZZ Inspection of Upper Intestinal Tract, Via Natural or Artificial Opening Endoscopic (ICD-10-PCS; CPT 43235; principal; 2024-04-23 14:15)
DX: K20.0 Eosinophilic esophagitis (principal); K44.9 Diaphragmatic hernia without obstruction or gangrene
CPT/HCPCS: 43239; J2704

== ENCOUNTER → 2024-11-29 15:56 | Outpatient (CLI) | payer BC, SELFPAY ==
[2023-04-15 21:52] VITALS: BMI 26.2
[2024-11-29 16:45] LABS: Influenza A - CEPHEID Flu A POSITIVE (NEGATIVE); Influenza B - CEPHEID Flu B NEGATIVE (NEGATIVE); Respiratory Syncytial Virus Negative (Negative)
[2024-11-29 16:48] LABS: COVID-19 CEPHEID 4-PLEX PCR Negative (Negative)
== END ==
PROVIDERS: PCP Family Medicine; Visit Provider Physician Assistant
DX: R05.1 Acute cough (principal)
CPT/HCPCS: 0241U

== ENCOUNTER → 2024-11-29 16:16 | Outpatient (CLI) | payer BC, SELFPAY ==
[2023-04-15 21:52] VITALS: BMI 26.2
--- NOTE | 2024-11-29 16:18 | DI.RAD.S_ITS ---
PROCEDURE: XR CHEST 2V INDICATIONS: cough TECHNIQUE: 2 views of the chest were acquired. COMPARISON: [facility], CR, XR CHEST 1V, 04/15/2023, 16:20. FINDINGS: Surgical changes and devices: None. Lungs and pleura: No dense consolidation or pleural effusion. Mediastinum: Normal heart size Bones and chest wall: Unremarkable IMPRESSION: No acute radiographic abnormality. No dense consolidation or pleural effusion. Dictated by: Hayder Garrido M.D. on 11/29/2024 at 16:46 Approved by: Hayder Garrido M.D. on 11/29/2024 at 16:46
== END ==
PROVIDERS: PCP Family Medicine; Referring Provider Physician Assistant; Visit Provider Physician Assistant
DX: R09.81 Nasal congestion (principal); B34.9 Viral infection, unspecified; R05.1 Acute cough
CPT/HCPCS: 0241U; 71046

== ENCOUNTER → 2025-02-24 18:23 | Outpatient (CLI) | payer BC, SELFPAY ==
[2023-04-15 21:52] VITALS: BMI 26.2
--- NOTE | 2025-02-24 18:25 | DI.RAD.S_ITS ---
PROCEDURE: XR WRIST LT MIN 3V INDICATIONS: Left wrist pain TECHNIQUE: 3 views of the wrist were acquired. COMPARISON: None. FINDINGS: Acute, mildly displaced and transversely oriented fracture of the distal radial metadiaphysis extending to the radiocarpal joint. Acute, minimally displaced fracture of the distal scaphoid pole. There may be an additional fracture of the scaphoid waist. The scapholunate interval is preserved. No other acute fracture or dislocation. IMPRESSION: 1. Acute, mildly displaced fractures of the distal radial metadiaphysis with intra-articular extension. 2. Acute minimally displaced fractures of the distal scaphoid pole and possibly the waist. The patient was directed to the emergency room for further management after the x-rays were obtained. Dictated by: Huey Pham M.D. on 02/24/2025 at 18:44 Approved by: Huey Pham M.D. on 02/24/2025 at 18:46
== END ==
PROVIDERS: PCP Family Medicine; Referring Provider Registered Nurse; Visit Provider Registered Nurse
DX: S52.572A Other intraarticular fracture of lower end of left radius, initial encounter for closed fracture (principal); S62.015A Nondisplaced fracture of distal pole of navicular [scaphoid] bone of left wrist, initial encounter for closed fracture; M25.532 Pain in left wrist
CPT/HCPCS: 73110

== ENCOUNTER 2025-02-24 18:40 | Emergency (ER) | payer BC, SELFPAY ==
[2023-04-15 21:52] VITALS: BMI 26.2
[2025-02-24 18:42] VITALS: BP 138/74; PULSE 62; RESP 18; TEMP 36.7; O2SAT 98; BMI 27.0
--- NOTE | 2025-02-24 20:00 | PC.NURSE ---
pt was sent by the [facility] to have a splint placed d/t a fx wrist, sergio bandage noted to left wrist and arm in sling cap refill <2sec
[2025-02-24] MEDS: OXYCODONE/ACETAMINOPHEN 5/325 TABLET 1 TAB PO (20:37)
--- NOTE | 2025-02-24 20:41 | ED.UPPEXIN ---
HPI - Extremity Injury (Upper) <Mikayla Tyler PA-C - Last Filed: 02/24/25 20:46> General Chief Complaint: Extremity Injury, Upper Stated Complaint: sent by UTC positive fracture left wrist Time Seen by Provider: 02/24/25 19:11 Source: patient Mode of arrival: Ambulatory History of Present Illness HPI narrative: 54-year-old male presents to the ED status post a left wrist injury sustained just prior to arrival. Patient sustained a FOOSH injury when he was climbing on driftwood in the rain, slipped and tried to brace his fall with his left hand. Patient was seen in the walk-in clinic, was sent for x-rays. X-ray was positive for a distal radius fracture and scaphoid pole fracture, patient was sent to the ED for splinting. Patient denies numbness, tingling, weakness. Patient does endorse pain in the left wrist. Related Data Home Medications Medication Instructions Recorded Confirmed pantoprazole 40 mg tablet,delayed 40 mg PO DAILY 04/15/23 02/24/25 release Previous Rx's Medication Instructions Recorded oxycodone-acetaminophen 5 mg-325 1 tab PO Q4-6H PRN pain #10 tabs 02/24/25 mg tablet (Endocet) Allergies Allergy/AdvReac Type Severity Reaction Status Date / Time No Known Drug Allergies Allergy Verified 02/24/25 18:15 Review of Systems <Mikayla Tyler PA-C - Last Filed: 02/24/25 20:46> Constitutional Constitutional: Denies chills, Denies fatigue, Denies fever(s), Denies frequent falls, Denies lethargy and Denies weakness Eyes Eyes: Denies change in vision, Denies eye discharge, Denies irritation and Denies loss of vision ENT Ears, Nose, Mouth, and Throat: Denies change in voice, Denies dizziness, Denies neck pain, Denies sore throat and Denies throat swelling Cardiovascular Cardiovascular: Denies chest pain, Denies irregular heart rhythm, Denies lightheadedness, Denies palpitations, Denies dyspnea, Denies dyspnea on exertion and Denies orthopnea Respiratory Respiratory: Denies cough, Denies dyspnea, Denies dyspnea on exertion and Denies wheezing Gastrointestinal Gastrointestinal: Denies abdominal pain, Denies change in bowel habits, Denies diarrhea, Denies nausea and Denies vomiting Musculoskeletal Musculoskeletal: Denies neck pain and Denies numbness Comments: Left wrist pain, swelling Integumentary/Breasts Skin/Breast: Denies pruritus, Denies erythema, Denies rash and Denies wounds Neurologic Neurologic: Denies behavioral changes, Denies confusion, Denies dizziness, Denies frequent falls, Denies loss of vision, Denies numbness and Denies weakness Psychiatric Psychiatric: Denies anxiety, Denies behavioral changes, Denies confusion, Denies depression, Denies homicidal ideation and Denies suicidal ideation Endocrine Endocrine: Denies fatigue, Denies flushing and Denies palpitations Hematologic/Lymphatic Hematologic/Lymphatic: Denies easy bruising Allergic/Immunologic Allergic/Immunologic: Denies urticaria, Denies throat swelling and Denies wheezing Patient History <Mikayla Tyler PA-C - Last Filed: 02/24/25 20:46> Medical History History of elevated PSA BPH w/o urinary obs/LUTS Retained ureteral stent Intraoperative ureteral injury Juvenile arthritis Numbness and tingling Sciatica Colovesical fistula Diverticula of intestine Asthma Arthritis Broken arm Dysphagia GERD (gastroesophageal reflux disease) Diverticulitis Surgical History History of surgery Hx of adenoidectomy S/P epidural steroid injection Status post appendectomy Family History Father Heart disease Social History marital status: number of children: 2 household members: spouse and children occupational status: employed Smoking Status: Never smoker alcohol intake: current Type(s) of exercise: swimming frequency: 3-4 times per week Smoking Status: Never smoker alcohol intake frequency: 0-2 drinks per day Alcohol type: wine Exam <Mikayla Tyler PA-C - Last Filed: 02/24/25 20:46> Narrative Exam Narrative: Const General:?cooperative, healthy appearing and comfortable [facility] Head:?normal to inspection Ears:?hearing grossly normal bilaterally Nose:?external nose normal Face and sinus:?normal facial exam and sinuses nontender Mouth:?oral mucosae normal Throat:?posterior oropharynx normal Eyes General:?appearance normal, both eyes and all related structures Neck Neck:?normal visual inspection and no lymphadenopathy noted Resp Effort & Inspection:?normal respiratory effort Auscultation:?clear to auscultation bilaterally Cardio Rate:?regular rate Rhythm:?regular rhythm Musculoskeletal There is swelling, tenderness to palpation of the distal wrist. No bruising. Able to move all fingers. Sensation is intact. Neurovascularly intact. Neuro General:?patient alert, patient awake and patient oriented x3 Initial Vital Signs Initial Vital Signs: Vital Signs Temperature 98.1 F 02/24/25 18:42 Pulse Rate 62 02/24/25 18:42 Respiratory Rate 18 02/24/25 18:42 Blood Pressure 138/74 02/24/25 18:42 Pulse Oximetry 98 02/24/25 18:42 Oxygen Delivery Method Room Air 02/24/25 18:42 <Boaz Cox MD - Last Filed: 02/24/25 22:10> Initial Vital Signs Initial Vital Signs: Vital Signs Temperature 98.1 F 02/24/25 18:42 Pulse Rate 62 02/24/25 18:42 Respiratory Rate 18 02/24/25 18:42 Blood Pressure 138/74 02/24/25 18:42 Pulse Oximetry 98 02/24/25 18:42 Oxygen Delivery Method Room Air 02/24/25 18:42 Course <Mikayla Tyler PA-C - Last Filed: 02/24/25 20:46> Orders Ordered: Discontinued Medications Oxycodone/Acetaminophen (Oxycodone/Acetaminophen 5/325 Tablet) 1 tab PO NOW ONE Stop: 02/24/25 20:23 Last Admin: 02/24/25 20:37 Dose: 1 tab Documented By: MILLI Vital Signs Vital signs: Vital Signs - 8 hr 02/24/25 18:42 Temperature 98.1 F Pulse Rate 62 Respiratory Rate 18 Blood Pressure 138/74 Pulse Oximetry 98 Oxygen Delivery Method Room Air <Boaz Cox MD - Last Filed: 02/24/25 22:10> Orders Ordered: Discontinued Medications Oxycodone/Acetaminophen (Oxycodone/Acetaminophen 5/325 Tablet) 1 tab PO NOW ONE Stop: 02/24/25 20:23 Last Admin: 02/24/25 20:37 Dose: 1 tab Documented By: MILLI Vital Signs Vital signs: Vital Signs - 8 hr 02/24/25 18:42 Temperature 98.1 F Pulse Rate 62 Respiratory Rate 18 Blood Pressure 138/74 Pulse Oximetry 98 Oxygen Delivery Method Room Air MDM - Extremity Injury (Upper) <Mikayla Tyler PA-C - Last Filed: 02/24/25 20:46> [facility] Narrative Medical decision making narrative: 54-year-old male presents to the ED status post a left wrist injury sustained just prior to arrival. X-ray read is as follows: PROCEDURE: XR WRIST LT MIN 3V INDICATIONS: Left wrist pain TECHNIQUE: 3 views of the wrist were acquired. COMPARISON: None. FINDINGS: Acute, mildly displaced and transversely oriented fracture of the distal radial metadiaphysis extending to the radiocarpal joint. Acute, minimally displaced fracture of the distal scaphoid pole. There may be an additional fracture of the scaphoid waist. The scapholunate interval is preserved. No other acute fracture or dislocation. IMPRESSION: 1. Acute, mildly displaced fractures of the distal radial metadiaphysis with intra-articular extension. 2. Acute minimally displaced fractures of the distal scaphoid pole and possibly the waist. The patient was directed to the emergency room for further management after the x-rays were obtained. Dictated by: Huey Pham M.D. on 02/24/2025 at 18:44 Approved by: Huey Pham M.D. on 02/24/2025 at 18:46 Patient was fitted in a splint. Patient already has a sling that he comes in with. Patient given Percocet for pain control. Prescribed Percocet for pain control. Recommend follow-up with ortho as soon as possible. ED return precautions discussed with patient. Patient verbalized understanding. Medical records reviewed: Yes Discharge Plan Departure Patient Disposition: Home Clinical Impression: Distal radial fracture Qualifiers: Encounter type: initial encounter Fracture type: closed Fracture morphology: unspecified fracture morphology Laterality: left Qualified Code(s): S52.502A - Unspecified fracture of the lower end of left radius, initial encounter for closed fracture Instructions: DI for Distal Radius Fracture Activity Restrictions/Additional Instructions: You were evaluated in the ED today for a left wrist injury. Your x-ray shows a distal radius and scaphoid pole fracture in the left wrist. You have been fitted with a splint. Please continue to wear the sling that you already have as well. You have been prescribed pain medication, please take with caution as it could make you sleepy. Please follow-up with an chargeback specialist as soon as possible. Return to the ED if you have worsening symptoms. Prescriptions: New oxycodone-acetaminophen [Endocet] 5-325 mg tablet 1 tab PO Q4-6H PRN (Reason: pain) Qty: 10 0RF No Action pantoprazole 40 mg tablet,delayed release (DR/EC) 40 mg PO DAILY Patient Comments: TAKE 1 TABLET BY MOUTH ONCE DAILY Referrals: Sukhjinder Trevizo MD [Primary Care Provider] - Stand Alone Forms: Patient Portal/API/Survey ED Sign-out <Boaz Cox MD - Last Filed: 02/24/25 22:10> Cosign ED Attending Cosignature Attestation: I was immediately available in the department for consultation. This documentation has been reviewed and I agree with assessment and plan. Supervised by Boaz Cox MD
== END 2025-02-24 20:47 | disposition home or self-care (01) ==
PROVIDERS: Emergency Provider Student in an Organized Health Care Education/Training Program; PCP Family Medicine
DX: S52.572A Other intraarticular fracture of lower end of left radius, initial encounter for closed fracture (principal); S62.012A Displaced fracture of distal pole of navicular [scaphoid] bone of left wrist, initial encounter for closed fracture; W17.89XA Other fall from one level to another, initial encounter; Y93.39 Activity, other involving climbing, rappelling and jumping off; S62.015A Nondisplaced fracture of distal pole of navicular [scaphoid] bone of left wrist, initial encounter for closed fracture; M25.532 Pain in left wrist
CPT/HCPCS: 29125; 73110; 99283

== ENCOUNTER → 2025-02-27 14:55 | Outpatient (CLI) | payer BC, SELFPAY ==
[2023-04-15 21:52] VITALS: BMI 26.2
--- NOTE | 2025-02-27 14:57 | DI.CT.S_ITS ---
PROCEDURE: CT UE LT WO CON INDICATIONS: CLOSED NONDISPLACED FX OF SCAPHOID OF LT WRIST TECHNIQUE: Noncontrast 1 mm axial sections acquired through the carpal bones, with coronal and sagittal reformats. COMPARISON: [facility], CR, XR WRIST LT MIN 3V, 02/24/2025, 18:22. FINDINGS: Image quality: Excellent. Bones: Acute comminuted fracture involving radial aspect of distal radius with fracture line extending to involve base of radial styloid and radial carpal joint space. There is lateral and dorsal displacement of fractured fragments and up to 5 mm diastasis at fracture site. subtle linear l is seen involving volar aspect of distal scaphoid best seen on series 6, image 31 concerning for a nondisplaced fracture. No evidence of scaphoid waist fracture. Radiographic finding most likely represent a nutrient vessel. No other fracture or dislocation. 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 No evidence of avascular necrosis. No suspicious intraosseous lesions. Soft tissues: Mild soft tissue swelling surrounding distal radial fracture site is seen. There is small to moderate radiocarpal joint effusion, no loose bodies. No abnormal soft tissue calcifications. No full-thickness extensor or flexor tendon rupture. IMPRESSION: 1. Acute comminuted and displaced intra-articular fracture involving distal radius and radial styloid as above. 2. Subtle nondisplaced fracture involving volar aspect of distal scaphoid. No evidence of scaphoid waist fracture. No evidence of avascular necrosis. 3. No other fracture or dislocation. Mild wrist joint osteoarthritis. 4. Soft tissue swelling surrounding distal radius. No abnormal soft tissue calcifications or calcified intra-articular loose bodies. No gross full-thickness wrist tendon rupture. Dictated by: Cliff Fraga M.D. on 02/27/2025 at 18:33 Approved by: Cliff Fraga M.D. on 02/27/2025 at 18:38
== END ==
PROVIDERS: PCP Family Medicine; Referring Provider Physician Assistant; Visit Provider Physician Assistant
DX: S52.572A Other intraarticular fracture of lower end of left radius, initial encounter for closed fracture (principal); S52.512A Displaced fracture of left radial styloid process, initial encounter for closed fracture; S62.015A Nondisplaced fracture of distal pole of navicular [scaphoid] bone of left wrist, initial encounter for closed fracture; S62.002P Unspecified fracture of navicular [scaphoid] bone of left wrist, subsequent encounter for fracture with malunion; M19.032 Primary osteoarthritis, left wrist; M79.89 Other specified soft tissue disorders; X58.XXXA Exposure to other specified factors, initial encounter
CPT/HCPCS: 73200

== ENCOUNTER 2025-06-29 04:57 | Emergency (ER) | payer BC, SELFPAY ==
[2023-04-15 21:52] VITALS: BMI 26.2
--- NOTE | 2025-06-29 04:58 | ED_ITS ---
HPI - Chest Pain General Chief Complaint: Chest Pain Stated Complaint: ChestPain, SOB, +Flu B Time Seen by Provider: 06/29/25 04:58 History of Present Illness HPI narrative: Patient is a 54-year-old male past medical history of GERD and asthma presents to the emergency department from home for evaluation of right-sided chest pain, states that this started 24 hours ago, he states that it is to the right side of the chest, states that it is worse with inspiration, states he did take a Tylenol with mild improvement but due to present symptoms came into the ED for further evaluation treatment. Patient without any known sick contacts not on any blood thinners, to note patient states that on he did take a home flu test and was positive. He denies any other symptoms at this time Related Data Home Medications ?Medication ?Instructions ?Recorded ?Confirmed pantoprazole 40 mg tablet,delayed 40 mg PO DAILY 04/1502/24/25 release Previous Rx's ?Medication ?Instructions ?Recorded oxycodone-acetaminophen 5 mg-325 1 tab PO Q4-6H PRN pa in #10 tabs 02/24/25 mg tablet (Endocet) doxycycline hyclate 100 mg tablet 100 mg PO BID 5 days #10 tabs 06/29/25 Allergies Allergy/AdvReac Type Severity Reaction Status Date / Time No Known Drug Allergies Allergy Verified 06/29/25 05:03 Review of Systems Review of Systems Narrative: General: Denies fever, chills, weight loss HEENT: Denies headache, eye drainage, eye irritation, head trauma, sore throat, voice change Cardiovascular: Positive chest pain, denies palpitations, tachycardia Respiratory: Denies any shortness of breath, cough, wheeze, stridor GI/: Denies any abdominal pain, nausea, vomiting, diarrhea, bright red blood per rectum, melanotic stools, urinary frequency, urinary retention, dysuria, hematuria MSK: Denies any joint pain, muscle pains, swelling Skin: Denies any rashes, lesions, discoloration Neuro: Denies any headache, lightheadedness, dizziness, fainting, weakness Psych: Denies SI/HI Patient History Medical History History of elevated PSA BPH w/o urinary obs/LUTS Retained ureteral stent Intraoperative ureteral injury Juvenile arthritis Numbness and tingling Sciatica Colovesical fistula Diverticula of intestine Asthma Arthritis Broken arm Dysphagia GERD (gastroesophageal reflux disease) Diverticulitis Surgical History History of surgery Hx of adenoidectomy S/P epidural steroid injection Status post appendectomy Family History Father Heart disease Social History marital status: number of children: 2 household members: spouse and children occupational status: employed alcohol intake: current Type(s) of exercise: swimming frequency: 3-4 times per week alcohol intake frequency: 0-2 drinks per day Alcohol type: wine Exam Narrative Exam Narrative: General: Cooperative, well-developed, not in acute distress HEENT: Normocephalic, atraumatic, PERRLA, normal sclera, eyelids normal Neck: Active full range of motion, atraumatic Chest: Normal to inspection, negative crepitus, no overlying erythema ecchymosis Respiratory: Normal respiratory effort, not in acute respiratory distress, clear to auscultation bilaterally negative cough, wheeze, tachypnea, rhonchi, rales Cardiology: Regular rate rhythm negative gallop, murmur, rubs GI/: No tenderness to palpation, soft, non rigid, normal to inspection, exam deferred MSK: Full active range of motion in all 4 extremities, atraumatic, no tenderness to palpation of any bony prominences Skin: No rashes or lesions noted Neuro: Alert awake oriented x3, moves all 4 extremities spontaneously, cranial nerves intact, able to answer all questions appropriately follows commands appropriately Psych: Cooperative, negative suicidal or homicidal ideations Initial Vital Signs Initial Vital Signs: Vital Signs Pulse Rate 62 06/29/25 05:07 Respiratory Rate 12 06/29/25 05:07 Pulse Oximetry 96 06/29/25 05:07 Course Orders Ordered: ED Orders 06/29/25 04:58 EKG-12 Lead Stat 06/29/25 05:05 Complete Blood Count AUTO DIFF Stat Comprehensive Metabolic Panel Stat Lipase Stat MAG [Magnesium] Stat NT-proBNP (BNP-Adult 18+) Stat PTT Partial Thromboplastin Farhad Stat Prothrombin Time INR Stat Troponin & CK Cardiac Panel Stat 06/29/25 05:06 CT angio chest PE protocol Stat 06/29/25 05:08 Covid-19 + FLU A/B + RSV - PCR Stat Sodium Chloride (Normal Saline 0.9%) 1,000 mls @ 1,000 mls/hr IV BOLUS ONE Stop: 06/29/25 06:10 Last Admin: 06/29/25 05:22 Dose: 1,000 mls/hr Discontinued Medications Aspirin (Aspirin 81 Mg Chew Tab) 324 mg PO NOW ONE Stop: 06/29/25 05:06 Last Admin: 06/29/25 05:22 Dose: 324 mg Vital Signs Vital signs: Vital Signs - 8 hr 06/29/25 05:07 06/29/25 05:31 06/29/25 05:33 Pulse Rate 62 60 62 Respiratory Rate 12 10 L Blood Pressure Pulse Oximetry 96 97 Oxygen Delivery Method Room Air 06/29/25 05:33 Pulse Rate Respiratory Rate Blood Pressure 138/82 Pulse Oximetry Oxygen Delivery Method MDM - Chest Pain Differential Diagnosis Differential diagnosis: Likely atypical chest pain, st elevation myocardial infarction, costochondritis, chest pain and other (COVID, flu, RSV, pneumonia, PE) Lab Data 06/29/25 05:05 06/29/25 05:05 Labs: Lab Results 06/29/25 06/29/25 Range/Units 05:05 05:08 WBC 6.7 (4.5-11.0) X10^3/uL RBC 4.99 (4.5-5.9) X10^6/uL Hgb 15.7 (13.5-17.5) g/dL Hct 44.6 (41-53) % MCV 89.3 (80-100) fL MCH 31.5 (26-34) PG MCHC 35.3 (30-36) % RDW 13.8 (11.6-14.8) % Plt Count 250 (150-400) X10^3/uL Neut % (Auto) 45.4 L (50-75) % Lymph % (Auto) 29.6 (25-40) % [place] % (Auto) 12.8 (3-14) % Eos % (Auto) 11.3 H (2-4) % Baso % (Auto) 0.9 (0-2) % Neut # (Auto) 3000 (8922-3527) /uL Lymph # (Auto) 2000 (6148-3005) /uL [place] # (Auto) 900 (0-900) /uL Eos # (Auto) 800 H (0-450) /uL Baso # (Auto) 100 (0-100) /uL PT 10.2 (9.4-12.5) SECONDS INR 0.9 (0.9-1.3) APTT 31 (25.1-36.5) SECONDS Sodium 139 (137-145) mmol/L Potassium 4.1 (3.4-5.1) mmol/L Chloride 104 (98-107) mmol/L Carbon Dioxide 25 (22-32) mmol/L BUN 18 (9-20) mg/dL Creatinine 0.88 (0.66-1.25) mg/dL Estimated GFR > 60 (>60) mL/min BUN/Creatinine Ratio 20.5 (6-22) Glucose 109 H (70-99) mg/dL Calcium 9.2 (8.4-10.2) mg/dL Magnesium 2.0 (1.6-2.3) mg/dL Total Bilirubin 0.4 (0.2-1.3) mg/dL AST 56 (17-59) IU/L ALT 21 (<50) IU/L Alkaline Phosphatase 76 (38-126) U/L Total Creatine Kinase 91 (55-170) U/L Troponin I < 0.012 (0.01-0.034) ng/mL NT-Pro-B Natriuret Pep < 20 (<125) pg/mL Total Protein 7.6 (6.3-8.2) g/dL Albumin 4.5 (3.5-5.0) g/dL Globulin 3.1 (1.7-4.1) g/dL Albumin/Globulin Ratio 1.5 (1.0-2.8) Lipase 77 (23-300) U/L SARS-CoV-2 (PCR) Negative (Negative) Influenza A (RT-PCR) Flu a negative (NEGATIVE) Influenza B (RT-PCR) Flu b negative (NEGATIVE) RSV (PCR) Negative (Negative) Imaging Data CTA chest: Radiologist's Impression: Preliminary read showing no pulmonary embolism aortic dissection or aneurysm, there is consolidation within the right lower lobe with bronchial wall thickening and scattered mucus plugging, small right pleural effusion ECG Data Interpretation: EKG interpreted ED physician sinus 62 beats per minute QTC 416 normal axis QRS HI interval within normal limits no STEMI MDM Narrative Medical decision making narrative: 54-year-old male with a past medical history of asthma and GERD presents to the emergency department from home for evaluation of right-sided chest pain ongoing intermittent for the past 24 hours. States that it is improved with Tylenol but is worse with inspiration. He states that he did take a home flu test and was positive proximally 3 days ago. He denies any actual difficulty breathing, patient is complaining of a cough however not complaining of any shortness of breath wheezing. Patient denies any blood thinners. EKG was nonischemic in nature. Patient had lab work imaging performed here in the emergency department. Patient without any leukocytosis Chem panel unremarkable, troponin negative CTA no PE but does show consolidation within the right lower lobe with small right pleural effusion given patient's symptomatic we will treat for pneumonia, 1st dose antibiotics here instructed to follow up with the primary care in outpatient setting, verbalized understanding of this and agrees to being discharged home with outpatient follow up, heart score 1. Patient is not requiring any supplemental oxygen here, patient curb 65 of 0 Discharge Plan Departure Patient Disposition: Home Clinical Impression: Pneumonia Instructions: DI for Pneumonia -- Adult Activity Restrictions/Additional Instructions: Please follow up with your primary care doctor Please read the discharge instructions sheet carefully and bring all papers to all doctor follow-up visits, as it may contain information that your doctor may want to see. Disease processes change and evolve, if your symptoms worsen or if you develop any new symptoms that are concerning to you please return for evaluation. Your evaluation today does not show any evidence of any life- threatening/serious illnesses requiring admission to the hospital or surgery. Please follow-up with your doctor for re-evaluation in approximately 1 day. Seek immediate medical attention for any worrisome symptoms. *If you do not have a primary care provider please contact the [facility] Resource line at [phone]. They will ask some questions about your medical history and help get you set up with a doctor in the community. Prescriptions: New doxycycline hyclate 100 mg tablet 100 mg PO BID 5 Days Qty: 10 0RF No Action pantoprazole 40 mg tablet,delayed release (DR/EC) 40 mg PO DAILY Patient Comments: TAKE 1 TABLET BY MOUTH ONCE DAILY oxycodone-acetaminophen [Endocet] 5-325 mg tablet 1 tab PO Q4-6H PRN (Reason: pain) Qty: 10 0RF Referrals: Sukhjinder Trevizo MD [Primary Care Provider, Family Practice] Stand Alone Forms: Patient Portal/API
[2025-06-29 05:03] VITALS: BMI 27.0
--- NOTE | 2025-06-29 05:04 | EKG_ITS ---
[address] [address] Test Date: 2025-06-29 Pat Name: Moustapha Strong Department: [facility] Room: Gender: Male Regional Production Manager: anthony : 1970 Requested By: Order Number: [id number] Reading MD: Deep Hobson Measurements Intervals [place] Rate: 62 P: 61 [place]: 152 QRS: 48 QRSD: 90 T: 53 QT: 410 QTc: 416 Interpretive Statements Normal sinus rhythm Electronically Signed On 06-29-2025 18:50:01 PDT by Deep Hobson
--- NOTE | 2025-06-29 05:04 | EKG_ITS ---
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
--- NOTE | 2025-06-29 05:06 | DI.CT.S_ITS ---
PROCEDURE: CT ANGIO CHEST PE PROTOCOL INDICATIONS: Right sided pleuritic chest pain TECHNIQUE: After the administration of intravenous contrast, 2 mm thick sections acquired from the pulmonary apices to the posterior costophrenic angles. 3-dimensional maximum intensity projection (MIP) coronal and sagittal reformats were then acquired through the thorax. For radiation dose reduction, the following was used: automated exposure control, adjustment of mA and/or kV according to patient size. COMPARISON: None. FINDINGS: Image quality: Diagnostic. Pulmonary arteries: Pulmonary arteries are normal in size, and demonstrate no intraluminal filling defects to suggest central pulmonary embolism. Lower Neck: No enlarged lymph nodes. Thyroid: No thyroid nodules which require sonographic follow up, per consensus guidelines. Axillae: No enlarged lymph nodes. Chest Wall: Unremarkable. Bones: No aggressive appearing bony lesions. Lungs and Pleura: Small right pleural effusion is seen with adjacent right basilar infiltrate/atelectasis. No other area of airspace opacities are suspicious pulmonary nodules. No pneumothorax. Central and peripheral airway is patent. Heart: Heart size is normal. No pericardial effusion. Thoracic Vessels: No aortic aneurysm. Mediastinum and [place]: No enlarged lymph nodes. Esophagus: No wall thickening. Small hiatal hernia. Upper Abdomen: Visualized upper abdomen solid organs and bowel loops appear normal. IMPRESSION: 1. No pulmonary embolus. No thoracic aortic aneurysm or gross dissection. 2. No pericardial effusion. Small hiatal hernia. No mediastinal or hilar lymphadenopathy. 3. Small right pleural effusion and right basilar atelectasis versus small infiltrates. No pneumothorax. Left lung is clear. No significant discrepancies from preliminary reading. Dictated by: Cliff Fraga M.D. on 06/29/2025 at 8:52 Approved by: Cliff Fraga M.D. on 06/29/2025 at 8:54
[2025-06-29 05:07] VITALS: PULSE 62; RESP 12; O2SAT 96
[2025-06-29] MEDS: ASPIRIN 81 MG CHEW TAB 324 MG PO (05:22)
[2025-06-29] MEDS: SODIUM CHLORIDE 0.9% 1,000 ML 1000 ML IV (05:22)
[2025-06-29 05:31] VITALS: PULSE 60
[2025-06-29 05:32] LABS: Add Manual Diff / Slide Review NO; Hematocrit 44.6 % (41-53); Hemoglobin 15.7 g/dL (13.5-17.5); Lymphocytes Absolute Auto 2000 /uL (1100-4500); Mean Corpuscular HGB Conc 35.3 % (30-36); Mean Corpuscular Hemoglobin 31.5 PG (26-34); Mean Corpuscular Volume 89.3 fL (80-100); Platelet Count 250 X10^3/uL (150-400)
[2025-06-29 05:33] VITALS: BP 138/82; PULSE 62; RESP 10; O2SAT 97
[2025-06-29 05:44] LABS: Alanine Aminotransferase 21 IU/L (<50); Albumin 4.5 g/dL (3.5-5.0); Albumin Globulin Ratio 1.5 (1.0-2.8); Alkaline Phosphatase 76 U/L (38-126); Blood Urea Nitrogen 18 mg/dL (9-20); Calcium 9.2 mg/dL (8.4-10.2); Carbon Dioxide 25 mmol/L (22-32); Chloride 104 mmol/L (98-107); Creatine Kinase 91 U/L (55-170); Estimated Glomerular Filt Rate > 60 mL/min (>60); Globulin 3.1 g/dL (1.7-4.1); Glucose 109 mg/dL (70-99); HEMOLYSIS 36 (0-50); Lipase 77 U/L (23-300); Potassium 4.1 mmol/L (3.4-5.1); Sodium 139 mmol/L (137-145); Total Protein 7.6 g/dL (6.3-8.2)
[2025-06-29 05:45] LABS: Magnesium 2.0 mg/dL (1.6-2.3)
[2025-06-29 05:54] LABS: INR 0.9 (0.9-1.3); NT-proBNP (BNP-Adult 18+) < 20 pg/mL (<125); Prothrombin Time 10.2 SECONDS (9.4-12.5)
[2025-06-29 05:56] LABS: Influenza A - CEPHEID Flu A NEGATIVE (NEGATIVE); Influenza B - CEPHEID Flu B NEGATIVE (NEGATIVE)
[2025-06-29 05:56] LABS: PTT Partial Thromboplastin Tim 31 SECONDS (25.1-36.5); Troponin I < 0.012 ng/mL (0.01-0.034)
[2025-06-29 05:58] LABS: COVID-19 CEPHEID 4-PLEX PCR Negative (Negative)
[2025-06-29 06:00] VITALS: BP 138/83; PULSE 58; RESP 12; O2SAT 97
[2025-06-29] MEDS: DOXYCYCLINE HYCLATE 100 MG TABLET PO (06:16)
== END 2025-06-29 06:19 | disposition home or self-care (01) ==
PROVIDERS: Emergency Provider Student in an Organized Health Care Education/Training Program; PCP Family Medicine
DX: J18.9 Pneumonia, unspecified organism (principal); J90 Pleural effusion, not elsewhere classified; R07.9 Chest pain, unspecified
CPT/HCPCS: 36415; 71275; 80053; 82550; 83690; 83735; 83880; 84484; 85025; 85610; 85730; 87637; 93005; 96360; 99284; Q9967

== ENCOUNTER → 2025-10-03 11:00 | Outpatient (CLI) | payer BC, SELFPAY ==
[2023-04-15 21:52] VITALS: BMI 26.2
--- NOTE | 2025-10-03 11:02 | DI.RAD.S_ITS ---
PROCEDURE: XR LUMBAR SPINE 2-3V INDICATIONS: BACK PAIN TECHNIQUE: 3 views of the lumbar spine were acquired. COMPARISON: None. FINDINGS: Bones: 5 [id number] vertebrae are present. There is normal bony alignment. No vertebral body compression fractures. No suspicious bony lesions. Overall [id number] multilevel degenerative disc and foraminal narrowing most prominent at L4-5 and L5-S1 Soft tissues: Overlying bowel gas pattern is normal. No suspicious soft tissue calcifications. IMPRESSION: Early degenerative changes most prominent L4-5, L5-S1. Dictated by: Salima Ruiz M.D. on 10/03/2025 at 17:07 Approved by: Salima Ruiz M.D. on 10/03/2025 at 17:08
== END ==
PROVIDERS: PCP Family Medicine; Referring Provider Family Medicine; Visit Provider Family Medicine
DX: M54.50 Low back pain, unspecified (principal)
CPT/HCPCS: 72100